=== PATIENT | female | born 1955 | race African-American/Black ===

== ENCOUNTER 2021-01-29 22:07 | Inpatient (IN) | payer MEDICARE, MEDICAID, SELFPAY ==
--- NOTE | ~2021-01-29 | XR_ITS ---
EXAMINATION: XR abdomen obstructive series EXAM DATE: 01/31/2021 12:44 INDICATION: Abdominal pain, ureterolithiasis s/p stent . TECHNIQUE: Frontal upright projection of the upper abdomen, frontal projection of the lower abdomen f or interpretation. Comparison is made to prior examination from 01/30/2021. FINDINGS: There is a left-sided double-J ureteral stent overlying expected position. There are 2 den sities projecting over the left kidney, probably nephrolithiasis. These have been indicated on the ex amination. There is a nonobstructive bowel gas pattern. Expected amount of colonic stool. No dilated small bowel. Advanced lumbar facet arthropathy. No evidence of free intraperitoneal gas on the uprigh t image. Lung bases are clear. IMPRESSION: 1. Left nephrolithiasis. 2. Stent in position. Reviewed, dictated and finalized at location A.
--- NOTE | ~2021-01-29 | XR_ITS ---
EXAMINATION: XR abdomen/kub 1V DATE: 01/30/2021 07:49 INDICATION: Kidney stone. TECHNIQUE: A supine view of the abdomen on 2 radiographs was obtained. COMPARISON: None. FINDINGS: There are no dilated loops of bowel. There is a 6 mm calcification in left abdomen. There i s a 5 mm calcification in left pelvis. IMPRESSION: 1. 6 mm calcification in left abdomen that may be a stone in the proximal left ureter. 2. 5 mm calcification in the left pelvis that may be a phlebolith or distal ureteral stone. Reviewed, dictated and finalized at location A. IMPRESSION: 1. 6 mm calcification in left abdomen that may be a stone in the proximal left ureter. 2. 5 mm calcification in the left pelvis that may be a phlebolith or distal ure teral stone.
--- NOTE | ~2021-01-29 | XR_ITS ---
EXAMINATION: XR abdomen/kub 1V DATE: 02/02/2021 14:22 INDICATION: Ureteral stone. TECHNIQUE: A supine view of the abdomen on 2 radiographs was obtained. COMPARISON: Abdomen radiographs 01/31/2021 FINDINGS: There are no dilated loops of bowel. The kidneys are obscured by bowel. There is a left int ernal ureteral stent in expected position. Calcifications in the pelvis are likely phleboliths. There is a 4 mm stone in left kidney. IMPRESSION: 1. 4 mm stone in left kidney. 2. Left internal ureteral stent in expected position. Reviewed, dictated and finalized at location A.
--- NOTE | ~2021-01-29 | US_ITS ---
EXAMINATION: US renal BI EXAM DATE: 02/01/2021 10:24 INDICATION: Pyelonephritis, stent, WBC elevated. TECHNIQUE: Multiple grayscale and Doppler images of the kidneys were obtained (by a technologist who performed the scan) and subsequently reviewed. There is no prior study for comparison. FINDINGS: Right kidney: There is normal contour and echogenicity. It measures 9.3 x 4.9 x 5.5 centimeters. Th ere are no focal renal lesions identified. There is no hydronephrosis. Left kidney: There is normal contour and echogenicity. It measures 9.8 x 6.0 x 5.7 centimeters. The re are no focal renal lesions identified. There is no hydronephrosis. Bladder unremarkable. IMPRESSION: Sonographically unremarkable kidneys. Reviewed, dictated and finalized at location A.
--- NOTE | ~2021-01-29 | XR_ITS ---
EXAMINATION: XR retrograde pyelo w/stent LT EXAM DATE: 01/30/2021 11:28 INDICATION: Left-sided retrograde pyelogram, stent placement. TECHNIQUE: Fluoroscopy used during XR retrograde pyelo w/stent LT performed by Dr. Floyd bhatt MD. Total fluoroscopic time of 0.25 minutes. A total of 7 images obtained for the exam. The DAP for this procedure was 237 radcm2. FINDINGS: The left ureter was cannulated, injected. There is mild left hydronephrosis. A double-J ur eteral stent was placed, lower loop projecting over the pubis. Correlate with procedure note. IMPRESSION: Fluoroscopy used during XR retrograde pyelo w/stent LT. Reviewed, dictated and finalized at location A.
[2021-01-29 22:18] VITALS: BP 159/75; PULSE 97; RESP 18; TEMP 36.6; O2SAT 96; BMI 36.3
--- NOTE | 2021-01-29 22:18 | ADMGEN ---
This patient, America Russo, was admitted to Medical Room 261-01. Patient/family oriented to hospital policies and general routines including ID bracelet, bed and alarms, visiting hours, pain management, procedures, bathroom and other care routines, personal items, smoking policy, room service/diet, and visiting hours. Information on how to activate the Rapid Response Team has been discussed. Patient/Family are encouraged to report perceived risks to care and to ask questions if they do not understand what they are told or what they should do.
[2021-01-29] MEDS: HYDROmorphone HCL INJ (*CRX) 1 MG/ML SYR 0.5 MG IV PUSH (23:09)
--- NOTE | 2021-01-29 23:36 | PM.IMHP ---
H&P: HPI History of Present Illness Date/Time: 01/29/21 23:36 this is a 65-year-old female patient who was seen by Dr. ortez at [facility] today. She took care over from another ED physician. The patient came to [facility] on 01/28/2021 she came to the emergency room with complaints of nausea vomiting and diarrhea. She had no prior history of any kidney stones. She has a history of atrial fibrillation and COPD. The patient was complaining of severe left-sided abdominal pain and left flank pain. The patient was found have UTI and was placed on Levaquin. She had a T-max of 100.4?. Patient had a CT of the abdomen which was read as a 8 mm left proximal ureteral obstructing calculus causing significant left-sided hydronephrosis and perinephric stranding suspicious for pyelonephritis. The patient initially was given morphine which did not control her discomfort. She was then given Dilaudid which she stated helped her discomfort. She was given IV fluids at [facility]. Her initial white count on 01/28/2021 was 12.9. The patient's urine was turbid with red blood cells and white blood cells 21-40. Her CT disc was sent with her to [facility]. The patient was a direct admit from [facility]. [facility] was called initially however there were no beds available. [facility] was also notified and also had no beds either. The patient was able to ambulate at [facility]. This was with assistance. Patient was nauseated there and was given Zofran. The patient is being admitted here to [facility] observation. Date of service is 01/29/2021 Chief Complaint: left flank pain Review of Systems Review of Systems: All systems reviewed & are unremarkable except as noted in HPI and below Constitutional: Constitutional: Reports as per HPI and Reports no additional constitutional complaints Eyes: Eyes: Reports as per HPI and Reports no additional eye complaints ENT: Reports system reviewed and no additional complaints, except as documented and Reports Normal hearing present Cardiovascular: Cardiovascular: Reports no additional cardiovascular complaints Respiratory: Respiratory: Reports no additional respiratory complaints and Reports no additional respiratory complaints Gastrointestinal: Gastrointestinal: Reports as per HPI and Reports no additional gastrointestinal complaints Musculoskeletal: Musculoskeletal: Reports no additional musculoskeletal complaints Integumentary/Breasts: Skin/Breast: Reports system reviewed and no additional complaints, except as docu and Reports as per HPI Neurologic: Reports system reviewed and no additional complaints, except as documented, Reports as per HPI and Reports Normal hearing present Psychiatric: Psychiatric: Reports no additional psychiatric complaints and Reports as per HPI Endocrine: Endocrine: Reports no additional endocrine complaints Hematologic/Lymphatic: Hematologic/Lymphatic: Reports no additional hematologic/lymphatic complaints Allergic/Immunologic: Allergic/Immunologic: Reports no additional allergic/immunologic complaints FOR[facility]LY [facility] Past Medical History Medical History (Updated 01/29/21 @ 23:48 by Madai Gonzalez NP) Anxiety Atrial fibrillation Congestive heart failure COPD (chronic obstructive pulmonary disease) Hyperlipidemia Hypertension Overactive bladder Surgical History Surgical History (Updated 01/29/21 @ 23:44 by Madai Gonzalez NP) H/O shoulder surgery left History of bilateral tubal ligation History of carpal tunnel release History of intravascular stent placement right leg Family History Family History (Updated 01/29/21 @ 23:45 by Madai Gonzalez NP) Father Diabetes mellitus Congestive cardiac failure Cerebrovascular accident Malignant neoplasm of prostate Mother Diabetes mellitus Congestive cardiac failure Ovarian cancer Sibling Drug addiction Social History Social History (Updated 01/29/21 @ 23:45 by Ivana
[2021-01-30] VITALS (19 sets, daily range): BP systolic 110–154; BP diastolic 58–70; PULSE 79–106; RESP 14–26; TEMP 36–37.7; O2SAT 83–100
[2021-01-30] MEDS: dilTIAZem HCL CD 180 MG CAP.ER.24H 360 MG PO ×2 (00:48→10:09)
[2021-01-30] MEDS: SODIUM CHLORIDE 0.9% IV 1,000 ML 100 ML IV CONT (00:49)
[2021-01-30] MEDS: levoFLOXacin 500 MG/D5W 100 ML 500 MG/100 ML BAG 100 MG IVPB (00:51)
[2021-01-30] MEDS: HYDROmorphone HCL INJ (*CRX) 1 MG/ML SYR IV PUSH ×2 (01:48→10:16)
[2021-01-30 02:01] LABS: Lactic Acid Reflex 0.9 mmol/L (0.7-2.1)
[2021-01-30] MEDS: ONDANSETRON INJ 4 MG/2 ML VIAL IV PUSH ×3 (02:36→12:26)
[2021-01-30 02:55] LABS: Add Urine Microscopic? YES; Appearance Urine Cloudy (Clear); Bacteria Urine Trace /hpf; Bilirubin Urine Negative (Negative); Blood Urine Negative (Negative); Color Urine Yellow (Yellow); Glucose Urine UA Negative (Negative); Ketones Urine 1+ mg/dL (Negative); Leukocyte Esterase Ur 2+ LEU/UL (NEGATIVE); Mucus Urine Rare /lpf; Nitrate Urine Negative (Negative); Protein Urine 1+ mg/dL (Negative); Specific Grav Ur 1.019 (1.001-1.035); Squamous Epithelial Cell Urine Many /hpf (Few); Urobilinogen Urine Negative mg/dL (<2.0)
[2021-01-30 05:42] LABS: Basophils Percent Auto 0.2 % (0.2-1.2); Eosinophils Percent Auto 0.2 % (0-4.4); Hematocrit 39.9 % (37.0-47.0); Hemoglobin 12.7 g/dL (12.0-15.0); Immature Granulocyte Absolute 0.11 K/mm3 (0.00-0.031); Immature Granulocyte Percent A 0.6 % (0-0.5); Lymphocytes Absolute Auto 2.07 K/mm3 (0.9-3.2); Lymphocytes Percent Auto 10.6 % (18.3-44.2); Mean Corpuscular HGB Conc 31.8 g/dl (32-36); Mean Corpuscular Hemoglobin 31.5 pg (26-34); Mean Platelet Volume 10.9 fl (7.4-10.4); Monocytes Absolute Auto 1.5 K/mm3 (0.1-0.6); Monocytes Percent Auto 7.6 % (2.6-8.5); Neutrophils Absolute Auto 15.9 K/mm3 (1.3-6.7); Neutrophils Percent Auto 80.8 % (45.5-73.1); Platelet Count Result 301 k/mm3 (150-375); Red Blood Count 4.03 M/mm3 (4.2-5.4); Red Cell Distribution Width 13.1 % (11.5-14.5); White Blood Count 19.6 K/mm3 (4.5-10.0)
[2021-01-30 05:50] LABS: Lactic Acid Reflex 1.1 mmol/L (0.7-2.1)
[2021-01-30 06:01] LABS: Alanine Aminotransferase 19 U/L (4-35); Albumin Level 3.5 g/dL (3.5-5.1); Alkaline Phosphatase 154 U/L (38-126); Anion Gap 6 mmol/L (8-16); Aspartate Amino Transferase 32 U/L (14-36); Bilirubin,Total 0.4 mg/dL (0.2-1.3); Blood Urea Nitrogen 14 mg/dL (7-17); Calcium 8.9 mg/dL (8.4-10.2); Carbon Dioxide 24 mmol/L (22-30); Chloride 111 mmol/L (98-107); Estimated CRCL calculation 38 ml/min; Estimated Glomerular Filt Rate 42; Glucose 86 mg/dL (65-105); Magnesium 1.9 mg/dL (1.6-2.3); Potassium 3.9 mmol/L (3.4-5.0); Sodium 141 mmol/L (137-145)
--- NOTE | 2021-01-30 08:56 | WPDURCON ---
Assessment and Plan Assessment and plan (1) Left ureteral stone: Code(s): N20.1 - Calculus of ureter Status: Acute Assessment and Plan: She will undergo left ureteral stent today. She understands risks of bleeding, infection, inability to place the stent. She also understands she will have definitive stone management and a separate procedure. She will likely undergo lithotripsy in the future. (2) Abnormal urinalysis: Code(s): R82.90 - Unspecified abnormal findings in urine Status: Acute Assessment and Plan: She does have an elevated white count. Her urinalysis is contaminated. She has no prominent symptoms of urinary tract infection. Urine culture is pending. Urology Consult Note HPI Date Seen: 01/30/21 Requesting Physician: Tiarra Simpson PA-C Primary Care Provider: Nelson Dempsey, Consult Narrative Narrative: America Russo is a 65 year old female transferred from an outside hospital. She had acute onset of left-sided flank pain 2 days ago. This prompted her visit to the emergency room. She was diagnosed with a proximal left ureteral stone measuring 8 mm. This is her 1st stone. She denied any spiking fevers. She denied any dysuria. She denied any chills. She notes some nausea without vomiting. She also had visible blood in the urine. Her urinalysis is contaminated with epithelial cells. Infection cannot be ruled out. A culture is pending. She does not have prominent UTI symptoms. She will undergo ureteral stent today with definitive stone management down the road. Review of Systems Review of Systems: All systems reviewed & are unremarkable except as noted in HPI and below PMFSH Past Medical History Medical History (Updated 01/30/21 @ 09:00 by Renzo Hicks MD) Anxiety Atrial fibrillation Congestive heart failure COPD (chronic obstructive pulmonary disease) Hyperlipidemia Hypertension Overactive bladder Surgical History Surgical History (Updated 01/29/21 @ 23:44 by Madai Gonzalez NP) H/O shoulder surgery left History of bilateral tubal ligation History of carpal tunnel release History of intravascular stent placement right leg Family History Family History (Updated 01/29/21 @ 23:45 by Madai Gonzalez NP) Father Diabetes mellitus Congestive cardiac failure Cerebrovascular accident Malignant neoplasm of prostate Mother Diabetes mellitus Congestive cardiac failure Ovarian cancer Sibling Drug addiction Social History Social History (Updated 01/29/21 @ 23:45 by Madai Gonzalez NP) Social History: the patient is and has 2 children. She stated that her 2 children of the durable power attorney at law for healthcare. The patient desires to be a full code. She is a lifelong nonsmoker nondrinker in and does not do any drugs. 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 She occasionally has a Glass of wine. Smoking status: Never smoker Alcohol intake: current Drinks per week: 1 Substance use: never Spiritual care concerns: No Meds Home Medications and Allergies Home Medications Medication Instructions Recorded Confirmed Type albuterol sulfate 2 puff INHALATION PRN PRN 01/29/21 01/29/21 History aspirin [Adult Low Dose Aspirin] 81 mg PO DAILY 01/29/21 01/29/21 History atorvastatin 40 mg PO DAILY 01/29/21 01/29/21 History diltiazem HCl [Cardizem CD] 360 mg PO DAILY 01/29/21 01/29/21 History furosemide 40 mg PO DAILY 01/29/21 01/29/21 History oxybutynin chloride 10 mg PO DAILY 01/29/21 01/29/21 History Allergies Allergy/AdvReac Type Severity Reaction Status Date / Time Penicillins Allergy Severe Difficulty Verified 01/29/21 22:28 Breathing Vital Signs Vital Signs - 24 hr 01/29/21 22:18 01/30/21 01:02 01/30/21 04:00 Temperature 97.8 F 97.4 F L 97.4 F L Pulse Rate 97 106 H 96 Respiratory Rate 18 16 16 Blood Pressure 159/75 H 144/65 H 143/63 H Pulse Oximetry 96 100 92
--- NOTE | 2021-01-30 10:31 | WPDHPUPDATE1 ---
History and Physical Update Update Date/Time: 01/30/21 10:31 History and Physical has been reviewed, including an updated exam of the patient. There are NO changes in the patient's condition. Risks, benefits, and alternatives have been discussed and questions answered. Patient agrees to proceed with procedure. Proceed with cysto, left retrograde, left stent placement
--- NOTE | 2021-01-30 10:32 | WPDHPUPDATE1 ---
History and Physical Update Update Date/Time: 01/30/21 10:32 History and Physical has been reviewed, including an updated exam of the patient. There are NO changes in the patient's condition. Risks, benefits, and alternatives have been discussed and questions answered. Patient agrees to proceed with procedure. Proceed with cysto left retrograde left stent placement
--- NOTE | 2021-01-30 10:55 | WPDANESEPPF ---
Anes - Initial Pre Proc Eval Procedure: Operation Date: 01/30/21 13:45 Proposed Procedures p Cystoscopy,Left Stent Placement - Floyd Coffey MD Date/Time: 01/30/21 10:55 Surgeon: Tiarra Simpson PA-C Pre Op Diagnosis: kidney stones with UTI Patient Data Age: 65 Gender: F Height: 5 ft 4 in Weight: 96.2 kg Last Vital Signs Temp 36.3 C L 01/30/21 04:00 Pulse 96 01/30/21 04:00 Resp 16 01/30/21 04:00 BP 143/63 H 01/30/21 04:00 Pulse Ox 92 01/30/21 04:00 Allergies Allergy/AdvReac Type Severity Reaction Status Date / Time Penicillins Allergy Severe Difficulty Verified 01/29/21 22:28 Breathing Home Medications Medication Instructions Recorded Confirmed Type albuterol sulfate 2 puff INHALATION PRN PRN 01/29/21 01/29/21 History aspirin [Adult Low Dose Aspirin] 81 mg PO DAILY 01/29/21 01/29/21 History atorvastatin 40 mg PO DAILY 01/29/21 01/29/21 History diltiazem HCl [Cardizem CD] 360 mg PO DAILY 01/29/21 01/29/21 History furosemide 40 mg PO DAILY 01/29/21 01/29/21 History oxybutynin chloride 10 mg PO DAILY 01/29/21 01/29/21 History Laboratory Tests 01/30/21 01/30/21 01/30/21 01:20 01:20 02:30 WBC RBC Hgb Hct MCV MCH MCHC RDW Plt Count MPV Immature Gran % (Auto) Neut % (Auto) Lymph % (Auto) Barren % (Auto) Eos % (Auto) Baso % (Auto) Lymph # (Auto) Barren # (Auto) Eos # (Auto) Baso # (Auto) Abs Immat Gran (auto) Absolute Neuts (auto) Absolute Nucleated RBC Nucleated RBC % Sodium Potassium Chloride Carbon Dioxide Anion Gap BUN Creatinine Estim Creat Clear Calc Estimated GFR Glucose Lactic Acid 0.9 mmol/L mmol/L (0.7-2.1) Calcium Magnesium 2.0 mg/dL mg/dL (1.6-2.3) Total Bilirubin AST ALT Alkaline Phosphatase Total Protein Albumin Urine Color Yellow (Yellow) Urine Appearance Cloudy H (Clear) Urine pH 5.0 (5.0-9.0) Ur Specific [place] 1.019 (1.001-1.035) Urine Protein 1+ mg/dL H mg/dL (Negative) Urine Glucose (UA) Negative mg/dL mg/dL (Negative) Urine Ketones 1+ mg/dL H mg/dL (Negative) Ur Blood (Man) Negative (Negative) Urine Nitrate Negative (Negative) Urine Bilirubin Negative (Negative) Urine Urobilinogen Negative mg/dL mg/dL (<2.0) Ur Leukocyte Esterase 2+ SWEETIE/UL H SWEETIE/UL (NEGATIVE) Urine RBC 3-5 /hpf H /hpf (0-2) Urine WBC 7-9 /hpf H /hpf (0-3) Ur Squamous Epith Cells Many /hpf H /hpf (Few) Urine Bacteria Trace /hpf /hpf Urine Mucus Rare /lpf /lpf 01/30/21 01/30/21 01/30/21 05:09 05:09 05:09 WBC 19.6 K/mm3 H K/mm3 (4.5-10.0) RBC 4.03 M/mm3 L M/mm3 (4.2-5.4) Hgb 12.7 g/dL g/dL (12.0-15.0) Hct 39.9 % % (37.0-47.0) MCV 99.0 fl fl (80-100) MCH 31.5 pg pg (26-34) MCHC 31.8 g/dl L g/dl (32-36) RDW 13.1 % % (11.5-14.5) Plt Count 301 k/mm3 k/mm3 (150-375) MPV 10.9 fl H fl (7.4-10.4) Immature Gran % (Auto) 0.6 % H % (0-0.5) Neut % (Auto) 80.8 % H % (45.5-73.1) Lymph % (Auto) 10.6 % L % (18.3-44.2) Barren % (Auto) 7.6 % % (2.6-8.5) Eos % (Auto) 0.2 % % (0-4.4) Baso % (Auto) 0.2 % % (0.2-1.2) Lymph # (Auto) 2.07 K/mm3 K/mm3 (0.9-3.2) Barren # (Auto) 1
--- NOTE | 2021-01-30 10:58 | PC.NURSE ---
To OR via stretcher with OR staff.
[2021-01-30] MEDS: LACTATED RINGERS 1,000 ML 30 ML IV CONT (11:00)
[2021-01-30] MEDS: LIDOCAINE HCL 2% GEL UROJET 10 ML PKG MUCOUS MEM (11:22)
--- NOTE | 2021-01-30 11:23 | P.OP_ITS ---
Procedure Note - Detailed Date of procedure: 01/30/21 Pre-op diagnosis: kidney stones with UTI Post-op diagnosis: same Procedure performed: Cystoscopy, left retrograde pyelogram, left ureteral stent placement 4.8 Romanian contour Description of procedure: Patient is taken the operative suite and correctly identified. Once anesthesia was obtained she was prepped and draped usual sterile fashion in dorsal lithotomy position. Twenty-two Romanian scope was inserted in the bladder. There is no tumors noted. The left ureteral orifice was cannulated with a [place]. Pyelogram was performed. We were able to get contrast past the stone. The guidewire was then inserted. 4.8 Romanian contour stent was then placed with the proximal end coiled in the renal pelvis and the distal in the bladder. Urine was obtained for culture. 2% viscous lidocaine was inserted into urethra patient is an recovery stable condition. Once patient is stable she can be discharged home from Urology standpoint. Will plan on seeing her in the office with a KUB this coming week and plan on definitive treatment at that time. Anesthesia: GLMA Surgeon: Floyd Coffey MD Drains: Yes Packing: No Pathology: none sent Complications: No immediate complications Condition: stable Disposition: PACU
[2021-01-30] MEDS: fentaNYL CITRATE INJ (*CRX) 100 MCG/2 ML VIAL 25 MCG IV PUSH (12:24)
--- NOTE | 2021-01-30 13:00 | PC.NURSE ---
Patient returned from OR via stretcher with OR staff. Settled in room. Patient sleeping and states she is comfortable and just wants to sleep when I arouse her. No distress noted. Telemetry placed back on patient and IVFs resumed.
--- NOTE | 2021-01-30 14:43 | PM.IMPN ---
Progress Note: A&P Assessment and Plan (1) Left ureteral stone: Code(s): N20.1 - Calculus of ureter Status: Acute Assessment and Plan: She presented to OSH and reported nausea, vomiting, and diarrhea with severe left-sided abdominal and flank pain. CT abd/pelvis demonstrated 8mm left proximal ureteral obstructing calculus with left-sided hydroureteronephrosis. She was transferred to [facility] for urology consultation and she is s/p cystoscopy with left retrograde pyelogram and left ureteral stent placement by Dr. Coffey today She notes hematuria following stent placement with mild dysuria but is otherwise doing well She will need definitive stone management outpatient per urology Continue analgesics and antiemetics as needed Continue gentle fluids until tolerating oral intake well (2) UTI (urinary tract infection): Code(s): N39.0 - Urinary tract infection, site not specified Status: Acute Assessment and Plan: Urinalysis grossly abnormal at outside facility but did appear contaminated with many squamous cells. CT abd/pelvis demonstrated perinephric stranding suspicious for pyelonephritis. She did complain of flank pain but no dysuria, urgency, or frequency prior to presentation. Temperature was elevated with Tmax 100.4F. WBC elevated at 12,900 and increased to 19,600 today. Continue empiric levaquin (initiated 01/28/21) Blood and urine cultures (clean catch and cystoscopy) pending Appreciate urology input (3) REGINALD (acute kidney injury): Code(s): N17.9 - Acute kidney failure, unspecified Status: Acute Assessment and Plan: Cr 1.21 on presentation to [place] and increased to 1.5 on labs today. May be secondary to vomiting, ureterolithiasis, vs infection. Continue IV normal saline Hold furosemide Follow trend (4) Hydronephrosis: Code(s): N13.30 - Unspecified hydronephrosis Status: Acute Assessment and Plan: As above. (5) COPD (chronic obstructive pulmonary disease): Code(s): J44.9 - Chronic obstructive pulmonary disease, unspecified Status: Chronic Assessment and Plan: Not in acute exacerbation. Continue albuterol PRN (6) Congestive heart failure: Code(s): I50.9 - Heart failure, unspecified Status: Chronic Assessment and Plan: Appears clinically compensated. Cr is elevated, likely pre-renal due to vomiting, so she is on judicious fluids. She follows with Dr. Cortez at [place]. Monitor volume status closely (7) Atrial fibrillation: Code(s): I48.91 - Unspecified atrial fibrillation Status: Chronic Assessment and Plan: She is currently in sinus rhythm. She is not on anticoagulation. Continue diltiazem (8) Hypertension: Code(s): I10 - Essential (primary) hypertension Status: Chronic Assessment and Plan: Blood pressures are reasonable with a few elevated readings, likely due to pain. Continue diltiazem Furosemide held due to mild REGINALD and acute illness, resume when clinically appropriate (9) Anxiety: Code(s): F41.9 - Anxiety disorder, unspecified Status: Chronic Assessment and Plan: Continue ativan PRN. (10) Hyperlipidemia: Code(s): E78.5 - Hyperlipidemia, unspecified Status: Chronic Assessment and Plan: ALP mildly elevated. Atorvastatin held initially since she was NPO but will resume (11) Overactive bladder: Code(s): N32.81 - Overactive bladder Status: Chronic Assessment and Plan: Oxybutynin held. Will resume when fine from a urology standpoint. Subjective Date/time seen: 01/30/21 14:43 Ms. Russo is a 65 y.o. female with PMH significant for COPD, hyperlipidemia, hypertension, overactive bladder, anxiety, and CHF who is seen in follow-up for ureterolithiasis and suspected urinary tract infection. She was seen followin
--- NOTE | 2021-01-30 17:30 | PC.NURSE ---
IV site in left antecubital leaking at site. IV discontinued. Attempted to restart IV site x 2 without success. Charge nurse Maddison Pardo RN also tried to restart x 2 without success. Called nursing solar panel installation supervisor Mariposa Molina RN and she came to room and attempted to restart IV x 3 using ultrasound machine. Unable to obtain IV access. Called Dr. Salinas and explained situation to her. Orders received to d/c IVF and change Levaquin IV to po as possible discharge tomorrow pending results of urine culture. Also spoke to Dr. Salinas about pain medication. Order received to d/c IV Dilaudid and start Percocet po prn for pain management.
[2021-01-30] MEDS: oxyCODONE/ACETAMINOPHEN (*CRX) 5-325 MG TABLET 1 TABLET PO ×2 (18:09→23:45)
[2021-01-31] VITALS (7 sets, daily range): BP systolic 131–163; BP diastolic 60–84; PULSE 74–83; RESP 16–20; TEMP 35.9–36.9; O2SAT 92–100
[2021-01-31 05:37] LABS: Basophils Percent Auto 0.1 % (0.2-1.2); Hematocrit 37.3 % (37.0-47.0); Hemoglobin 12.2 g/dL (12.0-15.0); Immature Granulocyte Absolute 0.13 K/mm3 (0.00-0.031); Immature Granulocyte Percent A 0.7 % (0-0.5); Lymphocytes Absolute Auto 0.87 K/mm3 (0.9-3.2); Mean Corpuscular HGB Conc 32.7 g/dl (32-36); Mean Corpuscular Hemoglobin 31.7 pg (26-34); Mean Corpuscular Volume 96.9 fl (80-100); Mean Platelet Volume 10.6 fl (7.4-10.4); Monocytes Absolute Auto 0.9 K/mm3 (0.1-0.6); Monocytes Percent Auto 4.9 % (2.6-8.5); Neutrophils Absolute Auto 15.6 K/mm3 (1.3-6.7); Neutrophils Percent Auto 89.3 % (45.5-73.1); Platelet Count Result 274 k/mm3 (150-375); Red Blood Count 3.85 M/mm3 (4.2-5.4); Red Cell Distribution Width 12.9 % (11.5-14.5); White Blood Count 17.5 K/mm3 (4.5-10.0)
[2021-01-31] MEDS: oxyCODONE/ACETAMINOPHEN (*CRX) 5-325 MG TABLET 1 TABLET PO ×3 (05:58→20:45)
[2021-01-31 06:01] LABS: Anion Gap 2 mmol/L (8-16); Blood Urea Nitrogen 13 mg/dL (7-17); Calcium 9.4 mg/dL (8.4-10.2); Carbon Dioxide 28 mmol/L (22-30); Chloride 109 mmol/L (98-107); Estimated CRCL calculation 57 ml/min; Estimated Glomerular Filt Rate > 60; Glucose 144 mg/dL (65-105); Magnesium 2.2 mg/dL (1.6-2.3); Potassium 4.6 mmol/L (3.4-5.0); Sodium 139 mmol/L (137-145)
--- NOTE | 2021-01-31 07:30 | P.PNAN_ITS ---
Anes - Prog Note Post-Op Date/Time: 01/31/21 07:30 Cardiovascular status: normal Respiratory status: normal Airway patency: baseline Mental status: baseline Post-Op hydration status: normal Vital Signs: Last Vital Signs Temp 36.3 C L 01/31/21 06:57 Pulse 74 01/31/21 06:57 Resp 16 01/31/21 06:57 BP 145/84 H 01/31/21 06:57 Pulse Ox 100 01/31/21 06:57 Pain Score (VAS): 4 I/O: Intake & Output 01/30/21 01/30/21 01/31/21 15:59 23:59 07:59 Intake Total 1000 240 Output Total 200 1750 450 Balance 800 1510 -450 Laboratory Tests 01/31/21 05:25 01/31/21 05:25 01/31/21 01/31/21 05:25 05:25 WBC 17.5 H RBC 3.85 L Hgb 12.2 Hct 37.3 MCV 96.9 MCH 31.7 MCHC 32.7 RDW 12.9 Plt Count 274 MPV 10.6 H Immature Gran % (Auto) 0.7 H Neut % (Auto) 89.3 H Lymph % (Auto) 5.0 L [place] % (Auto) 4.9 Eos % (Auto) 0.0 Baso % (Auto) 0.1 L Lymph # (Auto) 0.87 L [place] # (Auto) 0.9 H Eos # (Auto) 0.0 Baso # (Auto) 0.0 Abs Immat Gran (auto) 0.13 H Absolute Neuts (auto) 15.6 H Absolute Nucleated RBC 0.0 Nucleated RBC % 0.0 Sodium 139 Potassium 4.6 Chloride 109 H Carbon Dioxide 28 Anion Gap 2 L BUN 13 Creatinine 1.00 Estim Creat Clear Calc 57 Estimated GFR > 60 Glucose 144 H Calcium 9.4 Magnesium 2.2 Microbiology 01/30/21 02:30 Urine Clean Catch Urine Culture - Final Post-procedural complaints: none Patient Feedback: Patient satisfied with anesthetic care.
[2021-01-31] MEDS: ASPIRIN 81 MG CHEWABLE TABLET PO (09:00)
[2021-01-31] MEDS: ATORVASTATIN 40 MG TABLET PO (09:00)
[2021-01-31] MEDS: dilTIAZem HCL CD 180 MG CAP.ER.24H 360 MG PO (09:00)
[2021-01-31] MEDS: ONDANSETRON HCL ODT 4 MG TABLET PO (10:25)
--- NOTE | 2021-01-31 12:06 | PM.IMPN ---
Progress Note: A&P Assessment and Plan (1) Left ureteral stone: Code(s): N20.1 - Calculus of ureter Status: Acute Assessment and Plan: She presented to OSH and reported nausea, vomiting, and diarrhea with severe left-sided abdominal and flank pain. CT abd/pelvis demonstrated 8mm left proximal ureteral obstructing calculus with left-sided hydroureteronephrosis. She is still having renal colic. Repeat abdominal plain films show stent in expected position. She is still having some hematuria but this has improved. She was transferred to [facility] for urology consultation and she is s/p cystoscopy with left retrograde pyelogram and left ureteral stent placement by Dr. Coffey 01/30 She will need definitive stone management outpatient per urology Continue analgesics and antiemetics as needed (2) UTI (urinary tract infection): Code(s): N39.0 - Urinary tract infection, site not specified Status: Acute Assessment and Plan: Urinalysis grossly abnormal at outside facility but did appear contaminated with many squamous cells and culture demonstrated multiple organisms suspicious for external shelby, therefore no further culture obtained. CT abd/pelvis demonstrated perinephric stranding suspicious for pyelonephritis. She did complain of flank pain but no dysuria, urgency, or frequency prior to presentation. Temperature was elevated with Tmax 100.4F. WBC increased to 19.600 01/30 and is improving. Urine culture (clean catch) here demonstrates no growth but this was performed after she received antibiotics. Continue empiric levaquin (initiated 01/28/21) Blood and urine cultures (cystoscopy) pending, await results Appreciate urology input (3) REGINALD (acute kidney injury): Code(s): N17.9 - Acute kidney failure, unspecified Status: Resolved Assessment and Plan: Resolved. Cr 1.21 on presentation to [place] and increased to 1.5 on labs 01/30. May be secondary to vomiting, ureterolithiasis, vs infection. Cr has normalized to 1.0. Stop IV fluids since she is tolerating oral fluid intake Follow trend (4) Hydronephrosis: Code(s): N13.30 - Unspecified hydronephrosis Status: Acute Assessment and Plan: As above. (5) COPD (chronic obstructive pulmonary disease): Code(s): J44.9 - Chronic obstructive pulmonary disease, unspecified Status: Chronic Assessment and Plan: Not in acute exacerbation. Continue albuterol PRN (6) Congestive heart failure: Code(s): I50.9 - Heart failure, unspecified Status: Chronic Assessment and Plan: Appears clinically compensated. She follows with Dr. Cortez at [place]. Monitor volume status closely Resume lasix (7) Atrial fibrillation: Code(s): I48.91 - Unspecified atrial fibrillation Status: Chronic Assessment and Plan: She is currently in sinus rhythm. She is not on anticoagulation. Continue diltiazem (8) Hypertension: Code(s): I10 - Essential (primary) hypertension Status: Chronic Assessment and Plan: Blood pressures are reasonable. She has had a few elevated readings, likely due to pain. Continue diltiazem and resume furosemide (9) Hyperlipidemia: Code(s): E78.5 - Hyperlipidemia, unspecified Status: Chronic Assessment and Plan: ALP mildly elevated. Continue atorvastatin (10) Overactive bladder: Code(s): N32.81 - Overactive bladder Status: Chronic Assessment and Plan: Resume oxybutynin Subjective Date/time seen: 01/31/21 12:06 Ms. Russo is a 65 y.o. female with PMH significant for COPD, hyperlipidemia, hypertension, overactive bladder, anxiety, and CHF who is seen in follow-up for ureterolithiasis and suspected urinary tract infection. She is doing okay today. She still has abdominal pain in the left abdomen/left flank which is intermittent and crampy in
[2021-01-31] MEDS: FUROSEMIDE 40 MG TABLET PO (13:18)
--- NOTE | 2021-01-31 15:53 | WPDUROPN2 ---
Progress Note: A&P Additional Plan She is doing well. She has some residual left abdominal pain. Her WBC remains increased today. I agree with continuing the antibiotic therapy until culture results are finalized. As per Dr. Coffey, definitive management will be planned as an outpatient. We also discussed stone prevention and the role of 24 hour urine assessment to help with guiding stone prevention efforts. Subjective Subjective Date/Time Seen: 01/31/21 15:53 She feels some left abdominal pain. No fevers or chills. Exam Const: General: cooperative, healthy appearing and comfortable Psych: Mental Status: mental status grossly normal Speech and movement: Normal speech and movement present Objective Data Vital Signs Vital Signs: Vital Signs - 24 hr 01/30/21 20:00 01/30/21 20:17 01/30/21 20:30 Temperature Pulse Rate 79 Respiratory Rate 16 Blood Pressure Pulse Oximetry 98 83 L 91 01/30/21 21:33 01/30/21 22:41 01/31/21 02:21 Temperature 36.0 C L 36.1 C L Pulse Rate 83 81 Respiratory Rate 18 16 Blood Pressure 131/66 151/68 H Pulse Oximetry 95 98 96 01/31/21 06:57 01/31/21 08:27 01/31/21 10:00 Temperature 36.3 C L 36.0 C L Pulse Rate 74 83 Respiratory Rate 16 18 Blood Pressure 145/84 H 162/78 H Pulse Oximetry 100 92 94 Intake/Output Intake/Output: Intake & Output 01/28/21 01/29/21 01/30/21 01/31/21 23:59 23:59 23:59 23:59 Intake Total 1340 0 Output Total 2100 450 Balance -760 -450 Meds/Results Medications: Active Medications Generic Name Dose Route Start Last Admin Trade Name Freq PRN Reason Stop Dose Admin Albuterol 2 puff 01/29/21 23:35 Albuterol Sulfate (*Sp) Aerosol 1 Puff INHALATION PRN PRN Shortness Of Breath Aspirin 81 mg 01/31/21 09:00 01/31/21 09:00 Aspirin 81 Mg Chewable Tablet PO 81 mg DAILY LOBO Administration Atorvastatin Calcium 40 mg 01/31/21 09:00 01/31/21 09:00 Atorvastatin 40 Mg Tablet PO 40 mg DAILY LOBO Administration Diltiazem HCl 360 mg 01/29/21 23:35 01/31/21 09:00 Diltiazem Hcl Cd 180 Mg Cap.Er.24h PO 02/28/21 23:36 360 mg DAILY LOBO Administration Docusate Sodium 100 mg 01/31/21 21:00 Docusate Sodium 100 Mg Capsule PO Q12HR [facility] Furosemide 40 mg 01/31/21 11:45 01/31/21 13:18 Furosemide 40 Mg Tablet PO 40 mg DAILY LOBO Administration Hydralazine HCl 10 mg 01/29/21 23:51 Hydralazine Hcl 20 Mg/Ml Vial IV PUSH Q8H PRN Blood Pressure - High Levofloxacin 500 mg 01/31/21 00:00 01/30/21 23:45 Levofloxacin Tab 500 Mg Tablet PO 500 mg Q24H LOBO Administration Naloxone HCl 0.1 mg 01/29/21 23:27 Naloxone Hcl 0.4 Mg/Ml Vial IV PUSH Q2M PRN Opiate Reversal Ondansetron HCl 4 mg 01/31/21 09:35 01/31/21 10:25 Ondansetron Hcl Odt 4 Mg Tablet PO 4 mg Q6H PRN Administration Nausea And Vomiting Oxybutynin Chloride 10 mg 02/01/21 09:00 Oxybutynin Chloride Xl 5 Mg Tab.Er.24 PO DAILY [facility] Oxycodone HCl 5 mg 01/30/21 17:58 Oxycodone Hcl (*Crx) 5 Mg Tab Ir PO Q6H PRN Pain Rated 7-10 Oxycodone/Acetaminophen 1 tablet 01/30/21 17:48 01/31/21 05:58 Oxycodone/Acetaminophen (*Crx) 5-325 Mg Tablet PO 1 tablet Q6H PRN Administration Pain Rated 4-6 Oxycodone/Acetaminophen 1 tablet 01/30/21 17:48 Oxycodone/Acetaminophen (*Crx) 5-325 Mg Tablet PO Q6H PRN Pain Rated 7-10 Radiology Results: ITS Impressions Retrograde Pyelogram 01/30/21 11:31 IMPRESSION: Fluoroscopy used during XR retrograde pyelo w/stent LT. Abdomen X-Ray 01/31/21 13:07 IMPRESSION: 1. Left nephrolithiasis. 2. Stent in position. Labs Labs: Laboratory Results - last 24 hr 01/31/21 01/31/21 05:25 05:25 WBC 17.5 H RBC 3.85 L Hgb 12.2 Hct 37.3 MCV 96.9 MCH 31.7 MCHC 32.7 RDW 12.9 Plt Count 274 MPV 10.6 H Immature Gran % (Auto) 0.7 H Neut % (A
--- NOTE | 2021-01-31 18:59 | PC.NURSE ---
pt moved to room 254 so she can have access to a shower
[2021-01-31] MEDS: oxyCODONE HCL (*CRX) 5 MG TAB IR PO (20:45)
[2021-01-31] MEDS: DOCUSATE SODIUM 100 MG CAPSULE PO (20:46)
[2021-02-01 01:40] VITALS: BP 152/69; PULSE 72; RESP 16; TEMP 36.1; O2SAT 97
[2021-02-01] MEDS: oxyCODONE HCL (*CRX) 5 MG TAB IR PO ×3 (05:27→17:31)
[2021-02-01] MEDS: oxyCODONE/ACETAMINOPHEN (*CRX) 5-325 MG TABLET 1 TABLET PO ×3 (05:27→17:32)
[2021-02-01 05:30] LABS: Basophils Percent Auto 0.2 % (0.2-1.2); Eosinophils Absolute Auto 0.1 K/mm3 (0-0.3); Eosinophils Percent Auto 0.3 % (0-4.4); Hematocrit 38.9 % (37.0-47.0); Hemoglobin 12.5 g/dL (12.0-15.0); Immature Granulocyte Absolute 0.07 K/mm3 (0.00-0.031); Immature Granulocyte Percent A 0.4 % (0-0.5); Lymphocytes Absolute Auto 2.27 K/mm3 (0.9-3.2); Lymphocytes Percent Auto 12.6 % (18.3-44.2); Mean Corpuscular HGB Conc 32.1 g/dl (32-36); Mean Corpuscular Hemoglobin 30.8 pg (26-34); Mean Corpuscular Volume 95.8 fl (80-100); Mean Platelet Volume 11.2 fl (7.4-10.4); Monocytes Absolute Auto 1.3 K/mm3 (0.1-0.6); Neutrophils Absolute Auto 14.4 K/mm3 (1.3-6.7); Neutrophils Percent Auto 79.5 % (45.5-73.1); Platelet Count Result 315 k/mm3 (150-375); Red Blood Count 4.06 M/mm3 (4.2-5.4); Red Cell Distribution Width 12.9 % (11.5-14.5); White Blood Count 18.1 K/mm3 (4.5-10.0)
[2021-02-01 05:40] LABS: Anion Gap 5 mmol/L (8-16); Blood Urea Nitrogen 12 mg/dL (7-17); Calcium 9.2 mg/dL (8.4-10.2); Carbon Dioxide 27 mmol/L (22-30); Chloride 106 mmol/L (98-107); Estimated CRCL calculation 70 ml/min; Estimated Glomerular Filt Rate > 60; Glucose 122 mg/dL (65-105); Potassium 3.8 mmol/L (3.4-5.0); Sodium 138 mmol/L (137-145)
[2021-02-01 05:57] VITALS: BP 145/68; PULSE 82; RESP 16; TEMP 36.2; O2SAT 98
[2021-02-01] MEDS: dilTIAZem HCL CD 180 MG CAP.ER.24H 360 MG PO (09:35)
[2021-02-01] MEDS: ASPIRIN 81 MG CHEWABLE TABLET PO (09:40)
[2021-02-01] MEDS: DOCUSATE SODIUM 100 MG CAPSULE PO ×2 (09:40→20:04)
[2021-02-01] MEDS: FUROSEMIDE 40 MG TABLET PO (09:40)
[2021-02-01] MEDS: ATORVASTATIN 40 MG TABLET PO (09:40)
[2021-02-01 10:00] VITALS: BP 157/70; PULSE 78; RESP 18; TEMP 36.1; O2SAT 96
[2021-02-01] MEDS: ONDANSETRON HCL ODT 4 MG TABLET PO ×2 (10:18→17:31)
--- NOTE | 2021-02-01 10:45 | PM.IMPN ---
Progress Note: A&P Assessment and Plan (1) Left ureteral stone: Code(s): N20.1 - Calculus of ureter Status: Acute Assessment and Plan: She presented to OSH and reported nausea, vomiting, and diarrhea with severe left-sided abdominal and flank pain. CT abd/pelvis demonstrated 8mm left proximal ureteral obstructing calculus with left-sided hydroureteronephrosis. She is still having renal colic and nausea. Repeat abdominal plain films show stent in expected position. Hematuria following stent placement continues to improve. She was transferred to [facility] for urology consultation and she is s/p cystoscopy with left retrograde pyelogram and left ureteral stent placement by Dr. Coffey 01/30 She will need definitive stone management. I discussed her care with Dr. Alvarez with urology today. Given persistent renal colic and nausea, she may require definitive stone treatment inpatient since symptoms are persistent. Continue analgesics and antiemetics as needed (2) UTI (urinary tract infection): Code(s): N39.0 - Urinary tract infection, site not specified Status: Acute Assessment and Plan: Urinalysis grossly abnormal at outside facility but did appear contaminated with many squamous cells and culture demonstrated multiple organisms suspicious for external shelby, therefore no further culture obtained. CT abd/pelvis demonstrated perinephric stranding suspicious for pyelonephritis. She did complain of flank pain but no dysuria, urgency, or frequency prior to presentation. Temperature was elevated with Tmax 100.4 at outside facility. She has been afebrile here. Both urine cultures (clean catch and cysto) are negative from this facility but these were obtained after receiving antibiotics. WBC increased to 18,100. Continue empiric levaquin (initiated 01/28/21), increase to 750mg QD and will switch back to IV therapy. She was on oral therapy 01/31 due to inability to obtain IV access and IV accessed was obtained today. Preliminary blood cultures demonstrate NGTD with final cultures pending Appreciate urology input. Discussed with urology today and will continue IV antibiotics given elevated WBC. (3) REGINALD (acute kidney injury): Code(s): N17.9 - Acute kidney failure, unspecified Status: Resolved Assessment and Plan: Resolved. Cr 1.21 on presentation to [place] and increased to 1.5 on labs 01/30. This may have been secondary to vomiting, ureterolithiasis, vs infection. Cr has normalized to 1.0. (4) Hydronephrosis: Code(s): N13.30 - Unspecified hydronephrosis Status: Acute Assessment and Plan: As above. (5) COPD (chronic obstructive pulmonary disease): Code(s): J44.9 - Chronic obstructive pulmonary disease, unspecified Status: Chronic Assessment and Plan: Not in acute exacerbation. Continue albuterol PRN (6) Congestive heart failure: Code(s): I50.9 - Heart failure, unspecified Status: Chronic Assessment and Plan: Appears clinically compensated. She follows with Dr. Cortez at [place]. Monitor volume status closely Continue lasix (7) Atrial fibrillation: Code(s): I48.91 - Unspecified atrial fibrillation Status: Chronic Assessment and Plan: She is currently in sinus rhythm. She is not on anticoagulation. Continue diltiazem (8) Hypertension: Code(s): I10 - Essential (primary) hypertension Status: Chronic Assessment and Plan: Blood pressures are a bit elevated above target. This is likely secondary to pain. Most recent 157/70. Continue diltiazem and resume furosemide Try to achieve better pain control. If BP is still elevated above target when pain resolves, she may require additional antihypertensive. She was previously on losartan/HCTZ which was discontinued in the outpatient setting. (9) Hyperlipidemia: Code(s): E78.5 - Hyperlipidemia, unspecified
[2021-02-01 14:00] VITALS: BP 160/78; PULSE 67; RESP 16; TEMP 36.5; O2SAT 97
[2021-02-01] MEDS: SALINE LOCK FLUSH 10 ML IV PUSH ×3 (14:28→21:54)
[2021-02-01 17:58] VITALS: BP 149/60; PULSE 84; RESP 16; TEMP 36.5; O2SAT 96
[2021-02-01] MEDS: polyethylene glycoL 3350 17 GM POWD.PACK PO (18:56)
[2021-02-01] MEDS: ENOXAPARIN 40 MG/0.4 ML SYRINGE SUB-Q (20:04)
[2021-02-01 21:25] VITALS: BP 135/85; PULSE 80; RESP 16; TEMP 36.4; O2SAT 100
[2021-02-02 01:55] VITALS: BP 131/82; PULSE 74; RESP 16; TEMP 36.4; O2SAT 99
[2021-02-02] MEDS: oxyCODONE HCL (*CRX) 5 MG TAB IR PO ×3 (03:55→18:05)
[2021-02-02] MEDS: oxyCODONE/ACETAMINOPHEN (*CRX) 5-325 MG TABLET 1 TABLET PO ×3 (03:56→18:05)
[2021-02-02 05:18] VITALS: BP 146/63; PULSE 70; RESP 16; TEMP 36.6; O2SAT 94
[2021-02-02] MEDS: SALINE LOCK FLUSH 20 ML IV PUSH (06:23)
[2021-02-02] MEDS: SALINE LOCK FLUSH 10 ML IV PUSH ×3 (06:23→20:53)
[2021-02-02 06:36] LABS: Basophils Percent Auto 0.3 % (0.2-1.2); Eosinophils Absolute Auto 0.1 K/mm3 (0-0.3); Eosinophils Percent Auto 0.9 % (0-4.4); Hematocrit 36.2 % (37.0-47.0); Hemoglobin 11.6 g/dL (12.0-15.0); Immature Granulocyte Absolute 0.04 K/mm3 (0.00-0.031); Immature Granulocyte Percent A 0.4 % (0-0.5); Lymphocytes Absolute Auto 2.16 K/mm3 (0.9-3.2); Lymphocytes Percent Auto 21.8 % (18.3-44.2); Mean Corpuscular Volume 96.8 fl (80-100); Mean Platelet Volume 9.9 fl (7.4-10.4); Monocytes Percent Auto 9.7 % (2.6-8.5); Neutrophils Absolute Auto 6.6 K/mm3 (1.3-6.7); Neutrophils Percent Auto 66.9 % (45.5-73.1); Platelet Count Result 298 k/mm3 (150-375); Red Blood Count 3.74 M/mm3 (4.2-5.4); Red Cell Distribution Width 13.1 % (11.5-14.5); White Blood Count 9.9 K/mm3 (4.5-10.0)
[2021-02-02 06:48] LABS: Alanine Aminotransferase 23 U/L (4-35); Albumin Level 3.2 g/dL (3.5-5.1); Alkaline Phosphatase 120 U/L (38-126); Anion Gap 1 mmol/L (8-16); Aspartate Amino Transferase 28 U/L (14-36); Bilirubin,Total 0.2 mg/dL (0.2-1.3); Blood Urea Nitrogen 11 mg/dL (7-17); Carbon Dioxide 37 mmol/L (22-30); Chloride 102 mmol/L (98-107); Estimated CRCL calculation 52 ml/min; Estimated Glomerular Filt Rate > 60; Glucose 119 mg/dL (65-105); Magnesium 1.4 mg/dL (1.6-2.3); Potassium 3.6 mmol/L (3.4-5.0); Sodium 140 mmol/L (137-145)
[2021-02-02] MEDS: dilTIAZem HCL CD 180 MG CAP.ER.24H 360 MG PO (09:10)
[2021-02-02] MEDS: ATORVASTATIN 40 MG TABLET PO (09:10)
[2021-02-02] MEDS: ASPIRIN 81 MG CHEWABLE TABLET PO (09:11)
[2021-02-02] MEDS: polyethylene glycoL 3350 17 GM POWD.PACK PO (09:11)
[2021-02-02] MEDS: FUROSEMIDE 40 MG TABLET PO (09:11)
[2021-02-02] MEDS: DOCUSATE SODIUM 100 MG CAPSULE PO ×2 (09:11→20:53)
[2021-02-02 10:00] VITALS: BP 144/66; PULSE 78; RESP 16; TEMP 36.1; O2SAT 100
[2021-02-02 14:00] VITALS: BP 142/59; PULSE 84; RESP 16; TEMP 36.2; O2SAT 100
--- NOTE | 2021-02-02 15:51 | PM.IMPN ---
Progress Note: A&P Assessment and Plan (1) Left ureteral stone: Code(s): N20.1 - Calculus of ureter Status: Acute Assessment and Plan: She presented to OSH and reported nausea, vomiting, and diarrhea with severe left-sided abdominal and flank pain. CT abd/pelvis demonstrated 8mm left proximal ureteral obstructing calculus with left-sided hydroureteronephrosis. She is still having renal colic and nausea. Repeat abdominal plain films show stent in expected position. Hematuria following stent placement continues to improve. She was transferred to [facility] for urology consultation and she is s/p cystoscopy with left retrograde pyelogram and left ureteral stent placement by Dr. Coffey 01/30 She will need definitive stone management. Given persistent renal colic and nausea, she may require definitive stone treatment inpatient since symptoms are persistent. Left flank pain is persisting despite our interventions. most recent imaging shows the stent to be in place and patent, but a 4mm stone remains up in the left kidney. Imaging showing L nephrolithiasis, mild L hydronephrosis. Urologist may be planning procedure for tomorrow. She is NPO at midnight for Urology. No N/V today. Continue analgesics and antiemetics as needed (2) UTI (urinary tract infection): Code(s): N39.0 - Urinary tract infection, site not specified Status: Acute Assessment and Plan: Urinalysis grossly abnormal at outside facility but did appear contaminated with many squamous cells and culture demonstrated multiple organisms suspicious for external shelby, therefore no further culture obtained. CT abd/pelvis demonstrated perinephric stranding suspicious for pyelonephritis. She did complain of flank pain but no dysuria, urgency, or frequency prior to presentation. Temperature was elevated with Tmax 100.4 at outside facility. She has been afebrile here. Both urine cultures (clean catch and cysto) are negative from this facility but these were obtained after receiving antibiotics. WBC increased to 18,100. Continue empiric IV levaquin (initiated 01/28/21), increase to 750mg QD and will switch back to IV therapy. She was on oral therapy 01/31 due to inability to obtain IV access and IV accessed was obtained Preliminary blood cultures demonstrate NGTD with final cultures pending Appreciate urology input. 01/30, 02/01, 02/02 - received Levaquin doses. will continue IV dosing for a full course of 5 days, especially considering the continued Urology interventions and procedures that she is undergoing. (3) REGINALD (acute kidney injury): Code(s): N17.9 - Acute kidney failure, unspecified Status: Resolved Assessment and Plan: Resolved. Cr 1.21 on presentation to [place] and increased to 1.5 on labs 01/30. This may have been secondary to vomiting, ureterolithiasis, vs infection. Cr has normalized to 1.1 (4) Hydronephrosis: Code(s): N13.30 - Unspecified hydronephrosis Status: Acute Assessment and Plan: As above. (5) COPD (chronic obstructive pulmonary disease): Code(s): J44.9 - Chronic obstructive pulmonary disease, unspecified Status: Chronic Assessment and Plan: Not in acute exacerbation. Continue albuterol PRN Stable (6) Congestive heart failure: Code(s): I50.9 - Heart failure, unspecified Status: Chronic Assessment and Plan: Appears clinically compensated. She follows with Dr. Cortez at [place]. Monitor volume status closely Continue lasix may need fluids overnight while NPO for procedure (7) Atrial fibrillation: Code(s): I48.91 - Unspecified atrial fibrillation Status: Chronic Assessment and Plan: She is currently in sinus rhythm. She is not on anticoagulation. Continue diltiazem (8) Hypertension: Code(s): I10 - Essential (primary) hypertension Status: Chronic Assessment and Plan: Blood pressures a
[2021-02-02 20:00] VITALS: BP 155/77; PULSE 82; RESP 18; TEMP 36.2; O2SAT 92
[2021-02-02] MEDS: ENOXAPARIN 40 MG/0.4 ML SYRINGE SUB-Q (20:53)
[2021-02-03] VITALS: BP 156/82; PULSE 86; RESP 18; TEMP 35.9; O2SAT 97
[2021-02-03 04:00] VITALS: BP 168/70; PULSE 82; RESP 18; TEMP 35.9; O2SAT 100
[2021-02-03 06:10] LABS: Basophils Absolute Auto 0.1 K/mm3 (0.0-0.1); Basophils Percent Auto 0.5 % (0.2-1.2); Eosinophils Absolute Auto 0.2 K/mm3 (0-0.3); Eosinophils Percent Auto 2.5 % (0-4.4); Hematocrit 42.8 % (37.0-47.0); Hemoglobin 13.9 g/dL (12.0-15.0); Immature Granulocyte Absolute 0.04 K/mm3 (0.00-0.031); Immature Granulocyte Percent A 0.4 % (0-0.5); Lymphocytes Absolute Auto 2.49 K/mm3 (0.9-3.2); Lymphocytes Percent Auto 26.4 % (18.3-44.2); Mean Corpuscular HGB Conc 32.5 g/dl (32-36); Mean Corpuscular Hemoglobin 31.4 pg (26-34); Mean Corpuscular Volume 96.6 fl (80-100); Mean Platelet Volume 10.8 fl (7.4-10.4); Monocytes Absolute Auto 0.8 K/mm3 (0.1-0.6); Monocytes Percent Auto 8.1 % (2.6-8.5); Neutrophils Absolute Auto 5.9 K/mm3 (1.3-6.7); Neutrophils Percent Auto 62.1 % (45.5-73.1); Platelet Count Result 318 k/mm3 (150-375); Red Blood Count 4.43 M/mm3 (4.2-5.4); Red Cell Distribution Width 13.1 % (11.5-14.5); White Blood Count 9.4 K/mm3 (4.5-10.0)
[2021-02-03 06:22] LABS: Alanine Aminotransferase 27 U/L (4-35); Albumin Level 3.8 g/dL (3.5-5.1); Alkaline Phosphatase 152 U/L (38-126); Aspartate Amino Transferase 29 U/L (14-36); Bilirubin,Total 0.3 mg/dL (0.2-1.3); Blood Urea Nitrogen 10 mg/dL (7-17); Calcium 9.4 mg/dL (8.4-10.2); Carbon Dioxide > 40 mmol/L (22-30); Chloride 99 mmol/L (98-107); Estimated CRCL calculation 57 ml/min; Estimated Glomerular Filt Rate > 60; Glucose 102 mg/dL (65-105); Potassium 3.3 mmol/L (3.4-5.0); Sodium 141 mmol/L (137-145)
[2021-02-03] MEDS: SALINE LOCK FLUSH 10 ML IV PUSH ×2 (06:30→14:18)
[2021-02-03 08:29] VITALS: BP 142/65; PULSE 81; RESP 20; TEMP 37.3; O2SAT 93
[2021-02-03] MEDS: ASPIRIN 81 MG CHEWABLE TABLET PO (09:21)
[2021-02-03] MEDS: ATORVASTATIN 40 MG TABLET PO (09:21)
[2021-02-03] MEDS: FUROSEMIDE 40 MG TABLET PO (09:22)
[2021-02-03] MEDS: DOCUSATE SODIUM 100 MG CAPSULE PO (09:38)
[2021-02-03] MEDS: dilTIAZem HCL CD 180 MG CAP.ER.24H 360 MG PO (09:38)
[2021-02-03 10:00] VITALS: BP 134/69; PULSE 96; RESP 16; TEMP 36; O2SAT 100
--- NOTE | 2021-02-03 10:40 | PC.NURSE ---
[employer] spoke with Chitra Sahni pt may resume regular diet procedure will be scheduled outpatient.
[2021-02-03 11:54] VITALS: BP 143/50; PULSE 106; RESP 18; TEMP 36.3; O2SAT 100
[2021-02-03] MEDS: POTASSIUM CHLORIDE 20 MEQ PACKET (FOR LIQUID) 40 MEQ PO (14:15)
--- NOTE | 2021-02-03 15:18 | PC.NURSE ---
On 02/03/21, the student, [ROXY TANG], provided care and completed [facility] documentation on this patient. I have reviewed the student's documentation and agree with the findings.
--- NOTE | 2021-02-03 15:43 | PM.DS ---
DS: Admitting Diagnosis Admitting Diagnosis Admitting Diagnosis: Ureteral stone, UTI DS: Discharge Diagnosis Discharge Diagnosis (1) Left ureteral stone: Code(s): N20.1 - Calculus of ureter Status: Acute Assessment and Plan: She presented with severe left-sided abdominal and flank pain. CT abd/pelvis demonstrated 8mm left proximal ureteral obstructing calculus with left-sided hydroureteronephrosis. She underwent cystoscopy, left retrograde pyelogram, and left ureteral stent placement on 01/30/[address] Coffey. She tolerated the procedure well. She did have continued renal colic postoperatively. Repeat abdominal plain films show stent in expected position with persistent 4 mm left nephrolithiasis with mild left hydronephrosis. She experienced hematuria following stent placement which resolved. Pain slowly improved. She will need to follow-up with urology for definitive stone management at a later date. (2) UTI (urinary tract infection): Code(s): N39.0 - Urinary tract infection, site not specified Status: Acute Assessment and Plan: Urinalysis grossly abnormal at outside facility with concerns for contaminated specimen based on many squamous cells. That culture demonstrated multiple organisms suspicious for external shelby, again consistent with contamination. CT abd/pelvis demonstrated perinephric stranding suspicious for pyelonephritis. She complained of flank pain but did not endorse dysuria, urgency, or frequency prior to presentation. Temperature was elevated with Tmax 100.4 at outside facility but she remained afebrile during inpatient stay. Clean catch urine culture collected on 01/30/2021 and urine culture collected from cystoscopy both negative, however this was after receiving antibiotics. She was started on empiric IV Levaquin and will continue oral antibiotics to complete 7 days of antibiotic therapy. Blood cultures negative to date and final cultures will be monitored. Leukocytosis resolved. (3) REGINALD (acute kidney injury): Code(s): N17.9 - Acute kidney failure, unspecified Status: Resolved Assessment and Plan: Resolved. Creatinine upon presentation was 1.5. Likely secondary to hydronephrosis. Renal function returned to baseline following stent placement. (4) Hydronephrosis: Code(s): N13.30 - Unspecified hydronephrosis Status: Acute Assessment and Plan: As above. (5) COPD (chronic obstructive pulmonary disease): Code(s): J44.9 - Chronic obstructive pulmonary disease, unspecified Status: Chronic Assessment and Plan: Not in acute exacerbation. She was maintaining adequate oxygen saturations on room air. Continue albuterol PRN (6) Congestive heart failure: Code(s): I50.9 - Heart failure, unspecified Status: Chronic Assessment and Plan: Appears clinically compensated. She follows with Dr. Cortez at [place]. Continue Lasix at home. (7) Atrial fibrillation: Code(s): I48.91 - Unspecified atrial fibrillation Status: Chronic Assessment and Plan: She was in sinus rhythm. She is not on systemic anticoagulation, this may be due to paroxysmal nature of atrial fibrillation. Continue diltiazem. She should follow-up with her caregivers non medical to discuss need for chronic anticoagulation. (8) Hypertension: Code(s): I10 - Essential (primary) hypertension Status: Chronic Assessment and Plan: Blood pressures reviewed and were elevated above target. Slowly improved. Continue diltiazem and furosemide. I encouraged her to monitor BP at home 3-4 times weekly and record for review by PCP for further medication adjustment. She had previously been on losartan-HCTZ which was recently discontinued in the outpatient setting. Follow-up with PCP to determine if this should be resumed. (9) Overactive bladder: Code(s): N32.81 - Overactive bladder Status:
== END 2021-02-03 15:20 | disposition home or self-care (01) | DRG 660 ==
PROVIDERS: Nurse Practitioner; Physician Assistant; Urology; Admitting Provider Family Medicine; PCP Internal Medicine; Visit Provider Internal Medicine
PROC: 0T778DZ Dilation of Left Ureter with Intraluminal Device, Via Natural or Artificial Opening Endoscopic (ICD-10-PCS; CPT 52352; principal; 2021-01-30 13:45)
DX: N13.6 Pyonephrosis (principal); I48.20 Chronic atrial fibrillation, unspecified; N17.9 Acute kidney failure, unspecified; I11.0 Hypertensive heart disease with heart failure; E87.6 Hypokalemia; I50.9 Heart failure, unspecified; J44.9 Chronic obstructive pulmonary disease, unspecified; N32.81 Overactive bladder; F41.9 Anxiety disorder, unspecified; E78.5 Hyperlipidemia, unspecified; E66.9 Obesity, unspecified; Z68.36 Body mass index [BMI] 36.0-36.9, adult
CPT/HCPCS: 36415; 36569; 74018; 74019; 74420; 76775; 80048; 80053; 81001; 83605; 83735; 85025; 87040; 87086; 96365; 96375; 96376; A9270; C1751; C1758; C1769; C2617; G0378; G0379; J0330; J1100; J1170; J1650; J1956; J2405; J2704; J3010; J7030; J7120; Q9966

== ENCOUNTER → 2021-02-17 00:21 | Outpatient (CLI) | payer MEDICARE, MEDICAID, SELFPAY ==
[2021-02-17 20:46] LABS: SARS-CoV-2 RNA PCR Negative
== END ==
PROVIDERS: PCP Internal Medicine; Visit Provider Urology
DX: Z01.812 Encounter for preprocedural laboratory examination (principal); Z20.822 Contact with and (suspected) exposure to COVID-19
CPT/HCPCS: C9803; U0003; U0005

== ENCOUNTER 2021-02-18 08:49 | Outpatient (CLI) | payer MEDICARE, MEDICAID, SELFPAY ==
--- NOTE | 2021-02-18 09:00 | ECG_ITS ---
Measurements Intervals [place] Rate: 90 P: 65 GA: 155 QRS: -1 QRSD: 90 T: 28 QT: 336 QTc: 412 Interpretive Statements SINUS RHYTHM BASELINE ARTIFACT- I, II, III, AVR, AVL, AVF NORMAL ECG Electronically Signed On 02-18-2021 9:19:10 CDT by Troy Barker D.O.
[2021-02-18 10:10] LABS: INR 0.9; Prothrombin Time 12.5 Seconds (11.1-14.7)
[2021-02-18 10:11] LABS: Partial Thromboplastin Time 23.3 SECONDS (22.3-36.8)
== END 2021-02-18 08:50 | disposition home or self-care (01) ==
LOC: ANHSURGERY 03-12 08:49
PROVIDERS: PCP Internal Medicine; Visit Provider Urology
DX: Z01.818 Encounter for other preprocedural examination (principal); E78.5 Hyperlipidemia, unspecified; I10 Essential (primary) hypertension
CPT/HCPCS: 36415; 85610; 85730; 93005

== ENCOUNTER 2021-02-20 01:55 | Day surgery (SDC) | payer MEDICARE, MEDICAID, SELFPAY ==
[2021-02-16 14:21] VITALS: BMI 34.3
--- NOTE | 2021-02-19 14:57 | WPDANESEPPF ---
Anes - Initial Pre Proc Eval Procedure: Operation Date: 02/20/21 10:30 Proposed Procedures p Left Extracorporeal Shock Wave Lithotripsy - Floyd Coffey MD s Possible Cystoscopy, Left Ureteroscopy With Possible Left Stent Exchange - Floyd Coffey MD s Possible Holmium Laser Procedure - Floyd Coffey MD Date/Time: 02/19/21 14:57 Surgeon: Floyd Coffey MD Pre Op Diagnosis: Left Renal Stone Patient Data Age: 65 Gender: F Height: 1.6 m Weight: 88 kg Allergies Allergy/AdvReac Type Severity Reaction Status Date / Time Penicillins Allergy Severe Difficulty Verified 02/16/21 14:50 Breathing Home Medications Medication Instructions Recorded Confirmed Type albuterol sulfate 2 puff INHALATION PRN PRN 01/29/21 02/16/21 History aspirin 81 mg PO DAILY 01/29/21 02/16/21 History atorvastatin 40 mg PO DAILY 01/29/21 02/16/21 History diltiazem HCl [Cardizem CD] 360 mg PO DAILY 01/29/21 02/16/21 History furosemide 40 mg PO DAILY 01/29/21 02/16/21 History oxybutynin chloride 10 mg PO DAILY 01/29/21 02/16/21 History levofloxacin 750 mg PO DAILY #2 tablet 02/03/21 02/16/21 Rx ferrous sulfate 325 mg PO DAILY 02/16/21 02/16/21 History multivitamin 1 tablet PO DAILY 02/16/21 02/16/21 History Patient hx anesthesia problems: none Family hx anesthesia problems: none PMFSH Past Medical History Medical History (Updated 02/19/21 @ 14:59 by Duy Davila MD) Anxiety Asthma Atrial fibrillation CAD (coronary artery disease) Congestive heart failure COPD (chronic obstructive pulmonary disease) Hyperlipidemia Hypertension Overactive bladder PAD (peripheral artery disease) Rheumatoid arthritis Surgical History Surgical History H/O shoulder surgery left History of bilateral tubal ligation History of carpal tunnel release History of intravascular stent placement right leg Family History Family History Father Diabetes mellitus Congestive cardiac failure Cerebrovascular accident Malignant neoplasm of prostate Mother Diabetes mellitus Congestive cardiac failure Ovarian cancer Sibling Drug addiction Social History Social History Social History: the patient is and has 2 children. 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 The patient desires to be a full code. She is a lifelong nonsmoker nondrinker in and does not do any drugs. 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 She occasionally has a Glass of wine. Smoking status: Never smoker Alcohol intake: never Drinks per week: 1 Substance use: never Substance use type: does not use Living arrangements: with family Spiritual care concerns: No Anes - Eval Final PreProcedure Day of Procedure 02/19/21 14:57 Patient weight: obese Heart: regular rate and rhythm Lungs: clear to auscultation and normal air movement Airway: Mallampati scale class II Neurological: alert and oriented Last oral intake: >/= 8 hours ASA classification: III Emergent: no Anesthetic plan: proceed Anesthesia type and monitoring: general LMA Informed Consent: The patient's anesthetic plan and its attendant risks and benefits were discussed with the patient/family/POA. Questions were solicited and answers provided to the satisfaction of the patient/family/POA.
--- NOTE | ~2021-02-20 | XR_ITS ---
EXAMINATION: XR abdomen/kub 1V DATE: 02/20/2021 08:10 INDICATION: Ureteral stone. TECHNIQUE: A supine view of the abdomen on 2 radiographs was obtained. COMPARISON: Abdomen radiographs 02/02/2021, 01/30/2021 FINDINGS: There are no dilated loops of bowel. There is a left internal ureteral stent in expected po sition. There are phleboliths in left pelvis. There are two 3 mm stones in left kidney. IMPRESSION: 1. Two 3 mm stones in left kidney. 2. Left internal ureteral stent in expected position. Reviewed, dictated and finalized at location A.
[2021-02-20 08:22] VITALS: BP 110/86; PULSE 85; RESP 20; TEMP 36.2; O2SAT 99
--- NOTE | 2021-02-20 09:03 | WPDHPUPDATE1 ---
History and Physical Update Update Date/Time: 02/20/21 09:03 History and Physical has been reviewed, including an updated exam of the patient. There are NO changes in the patient's condition. Risks, benefits, and alternatives have been discussed and questions answered. Patient agrees to proceed with procedure. Proceed with left renal lithotripsy
--- NOTE | 2021-02-20 09:24 | SUR.PREOP ---
0915-INFORMED BY DR. STARKS PT DOES NOT HAVE INSURANCE CLEARANCE AND WILL NOT PROCEED AT THIS TIME BUT, WILL KEEP PT IN PREOP AREA TO AWAIT CLEARANCE.
--- NOTE | 2021-02-20 14:01 | SUR.PREOP ---
0935-DR. STARKS SPEAKING WITH PT, PT HAS NO INSURANCE AUTHORIZATION FOR PROCEDURE AND HE INFORMS PT HIS OFFICE IS WORKING WITH INSURANCE COMPANY. WILL NOT START IV UNTIL DECISION MADE. 0944-DAUGHTERMARIA L NOTIFIED OF ABOVE. 1145-DR. STARKS IN TO SPEAK WITH PT, STILL NO INSURANCE AUTHORIZATION, SURGERY CANCELLED. 1147-DAUGHTER NOTIFIED SURGERY CANCELLED--STATES SHE WILL BE HERE IN 20 MINUTES TO MANAGER PROPOSAL PT. 1155-PT AWARE I SPOKE WITH DAUGHTER, PT TEARFUL, UPSET ABOUT CANCELATION, EMPATHY GIVEN. PO FLUIDS AND CRACKERS OFFERED, DECLINES. 1235-DAUGHTER HAS NOT ARRIVED, CALLED DAUGHTER, STATES SHE WILL BE HERE IN 15 MINUTES. 1240-PT AWARE AND STATES SHE WANTS TO LEAVE AREA AND WAIT OUTSIDE FOR DAUGHTER. ASK PT TO REMAIN UNTIL I RETURN. 1250-SPOKE WITH BO KAUR ABOUT ABOVE, STATES MAY DISCHARGE PT TO OUTSIDE BENCH REQUESTED. 1255-PT AWARE SHE MAY DISCHARGE TO WAITING ROOM OR OUTSIDE BENCH. 1305-PT TAKEN PER W/C TO LOBBY. 1310-DAUGHTER ARRIVED, EXPLAINED FOLLOW UP TO DAUGHTER, PT DISCHARGED.
== END 2021-02-20 13:10 | disposition home or self-care (01) ==
PROVIDERS: PCP Internal Medicine; Visit Provider Urology
DX: N20.0 Calculus of kidney (principal); Z53.8 Procedure and treatment not carried out for other reasons
CPT/HCPCS: 74018; 99212; A9270; G0463; J2250; J3010

== ENCOUNTER → 2021-03-03 01:28 | Outpatient (CLI) | payer MEDICARE, MEDICAID, SELFPAY ==
[2021-03-03 18:55] LABS: SARS-CoV-2 RNA PCR Negative
== END ==
PROVIDERS: PCP Internal Medicine; Visit Provider Urology
DX: Z01.812 Encounter for preprocedural laboratory examination (principal); Z20.822 Contact with and (suspected) exposure to COVID-19
CPT/HCPCS: C9803; U0003; U0005

== ENCOUNTER 2021-03-06 05:44 | Day surgery (SDC) | payer MEDICARE, MEDICAID, SELFPAY ==
[2021-02-24 15:16] VITALS: BMI 36.5
[2021-03-06] VITALS (8 sets, daily range): BP systolic 130–151; BP diastolic 68–79; PULSE 60–90; RESP 12–18; TEMP 36.6–36.8; O2SAT 98–100
--- NOTE | ~2021-03-06 | XR_ITS ---
EXAMINATION: XR abdomen/kub 1V DATE: 03/06/2021 06:42 INDICATION: Lithotripsy TECHNIQUE: A supine view of the abdomen on 2 radiographs was obtained. COMPARISON: 02/20/2021 FINDINGS: Left internal ureteral stent remains in expected position. Again seen are couple 3 mm stones projecti ng over the left renal pelvis. Phlebolith in the left hemipelvis. Normal bowel gas pattern. Lung base s are clear. Heart size is normal. Multilevel severe lumbar facet osteoarthritis. IMPRESSION: 1. A couple unchanged 3 mm left renal stones. 2. Left internal ureteral stent remains in expected position. Reviewed, dictated and finalized at location A.
--- NOTE | 2021-03-06 07:37 | WPDHPUPDATE1 ---
History and Physical Update Update Date/Time: 03/06/21 07:37 History and Physical has been reviewed, including an updated exam of the patient. There are NO changes in the patient's condition. Risks, benefits, and alternatives have been discussed and questions answered. Patient agrees to proceed with procedure.
[2021-03-06] MEDS: LACTATED RINGERS 1,000 ML 30 ML IV CONT (08:09)
--- NOTE | 2021-03-06 08:12 | WPDANESEPPF ---
Anes - Initial Pre Proc Eval Procedure: Operation Date: 03/06/21 09:00 Proposed Procedures p Left Renal Extracorporeal Shock Wave Lithotripsy - Floyd Coffey MD s Possible Left Ureteroscopy, - Floyd Coffey MD s Holmium Laser with Left Stent Exchange - Floyd Coffey MD Date/Time: 03/06/21 08:12 Surgeon: Floyd Coffey MD Pre Op Diagnosis: left renal stone Patient Data Age: 65 Gender: F Height: 5 ft 3 in Weight: 92.5 kg Last Vital Signs Temp 36.6 C 03/06/21 06:56 Pulse 81 03/06/21 06:56 Resp 16 03/06/21 06:56 BP 131/69 03/06/21 06:56 Pulse Ox 99 03/06/21 06:56 Allergies Allergy/AdvReac Type Severity Reaction Status Date / Time Penicillins Allergy Severe Difficulty Verified 03/06/21 07:18 Breathing/hives Home Medications Medication Instructions Recorded Confirmed Type albuterol sulfate 2 puff INHALATION PRN PRN 01/29/21 03/06/21 History aspirin 81 mg PO DAILY 01/29/21 03/06/21 History atorvastatin 40 mg PO DAILY 01/29/21 03/06/21 History diltiazem HCl [Cardizem CD] 360 mg PO DAILY 01/29/21 03/06/21 History furosemide 40 mg PO DAILY 01/29/21 03/06/21 History oxybutynin chloride 10 mg PO DAILY 01/29/21 03/06/21 History ferrous sulfate 325 mg PO DAILY 02/16/21 03/06/21 History multivitamin 1 tablet PO DAILY 02/16/21 03/06/21 History Patient hx anesthesia problems: none Family hx anesthesia problems: none PMFSH Past Medical History Medical History Anxiety Asthma Atrial fibrillation CAD (coronary artery disease) Congestive heart failure COPD (chronic obstructive pulmonary disease) Hyperlipidemia Hypertension Overactive bladder PAD (peripheral artery disease) Rheumatoid arthritis Surgical History Surgical History H/O shoulder surgery left History of bilateral tubal ligation History of carpal tunnel release History of intravascular stent placement right leg Family History Family History Father Diabetes mellitus Congestive cardiac failure Cerebrovascular accident Malignant neoplasm of prostate Mother Diabetes mellitus Congestive cardiac failure Ovarian cancer Sibling Drug addiction Social History Social History Social History: the patient is and has 2 children. She stated that her 2 children of the durable power criminal defense attorney for healthcare. The patient desires to be a full code. She is a lifelong nonsmoker nondrinker in and does not do any drugs. 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 She occasionally has a Glass of wine. Smoking status: Never smoker Alcohol intake: never Substance use: never Substance use type: does not use Living arrangements: with family Spiritual care concerns: No Anes - Eval Final PreProcedure Day of Procedure 03/06/21 08:12 Patient weight: obese Heart: regular rate and rhythm Lungs: decreased breath sounds Airway: Mallampati scale class II Neurological: alert and oriented Last oral intake: >/= 8 hours ASA classification: III Emergent: no Anesthetic plan: proceed Anesthesia type and monitoring: general LMA and standard monitoring Informed Consent: The patient's anesthetic plan and its attendant risks and benefits were discussed with the patient/family/POA. Questions were solicited and answers provided to the satisfaction of the patient/family/POA.
[2021-03-06] MEDS: levoFLOXacin 500 MG/D5W 100 ML 500 MG/100 ML BAG 100 MG IVPB (08:39)
--- NOTE | 2021-03-06 09:34 | P.OP_ITS ---
Procedure Note - Detailed Date of procedure: 03/06/21 Pre-op diagnosis: left renal stone Post-op diagnosis: same Procedure performed: Cystoscopy, left ureteral stent exchange 4.8 Martiniquais contour, ESWL left renal calculus Description of procedure: Patient is taken the operative suite and correctly identified. Once anesthesia was obtained stones in the kidney were localized in both planes. Two thousand five hundred shocks were given to the stones. At this point the patient was placed in frog-leg position and prepped and draped usual sterile fashion. Sixteen Martiniquais scope was inserted the bladder. The prior stent was visualized grasped and brought out the meatus. Guidewire was passed through the stent. 4.8 Martiniquais contour stent was then placed over the guidewire with the proximal end coiled in the renal pelvis and the distal in the bladder. Patient is taken recovery room stable condition. She will follow up in 7-10 days with a KUB. Anesthesia: GLMA Surgeon: Floyd Coffey MD Drains: Yes Packing: No Pathology: none sent Complications: No immediate complications Condition: stable Disposition: PACU
== END 2021-03-06 11:54 | disposition home or self-care (01) ==
PROVIDERS: PCP Internal Medicine; Visit Provider Urology
PROC: (CPT 50590; principal; 2021-03-06 09:00)
PROC: (CPT 52352; 2021-03-06 09:00)
PROC: (CPT 52332; 2021-03-06 09:00)
DX: N20.0 Calculus of kidney (principal); I48.91 Unspecified atrial fibrillation; I25.10 Atherosclerotic heart disease of native coronary artery without angina pectoris; I11.0 Hypertensive heart disease with heart failure; I50.9 Heart failure, unspecified; J44.9 Chronic obstructive pulmonary disease, unspecified; I73.9 Peripheral vascular disease, unspecified; M06.9 Rheumatoid arthritis, unspecified; F41.9 Anxiety disorder, unspecified; Z95.820 Peripheral vascular angioplasty status with implants and grafts; Z79.82 Long term (current) use of aspirin; Z79.51 Long term (current) use of inhaled steroids; E66.9 Obesity, unspecified; Z68.36 Body mass index [BMI] 36.0-36.9, adult
CPT/HCPCS: 52332; 50590; 74018; A9270; C1769; C2617; C9803; J1956; J2250; J2370; J2405; J2704; J3010; J7030; J7120; U0003; U0005

== ENCOUNTER 2021-03-19 09:46 | Outpatient (CLI) | payer MEDICARE, MEDICAID, SELFPAY ==
--- NOTE | ~2021-03-19 | XR_ITS ---
EXAMINATION: XR abdomen/kub 1V INDICATION: Calcium kidney stone, left side TECHNIQUE: Supine views of the abdomen were obtained on 2 radiographs. COMPARISON: 03/06/2020 FINDINGS: A left internal ureteral stent is in expected position. There are two 3 mm stones of the le ft kidney adjacent to the coiled portion of the stent. No stones are identified along the course of t he stent. There are phleboliths of the pelvis. The bowel gas pattern is normal. There is mild osteoar thritis of the hips. Moderate lower lumbar spondylosis is noted. IMPRESSION: 1. Left internal ureteral stent in expected position to 3 mm stones in the left renal pelvis adjacent to the stent. Reviewed, dictated and finalized at location A.
== END 2021-03-19 09:47 | disposition home or self-care (01) ==
LOC: ANHIMG 09:52
PROVIDERS: PCP Internal Medicine; Visit Provider Urology
DX: N20.0 Calculus of kidney (principal); Z96.0 Presence of urogenital implants
CPT/HCPCS: 74018

== ENCOUNTER → 2021-03-23 02:18 | Outpatient (CLI) | payer MEDICARE, MEDICAID, SELFPAY ==
[2021-03-23 17:04] LABS: SARS-CoV-2 RNA PCR Negative
== END ==
PROVIDERS: PCP Internal Medicine; Visit Provider Urology
DX: Z01.812 Encounter for preprocedural laboratory examination (principal); Z20.822 Contact with and (suspected) exposure to COVID-19
CPT/HCPCS: C9803; U0003; U0005

== ENCOUNTER 2021-03-26 00:34 | Day surgery (SDC) | payer MEDICARE, MEDICAID, SELFPAY ==
[2021-03-19 13:44] VITALS: BMI 36.3
--- NOTE | 2021-03-24 08:51 | PC.NURSE ---
Pt states no changes in health history or medications since initial interview. Pt had Covid testing completed yesterday. New pre-op instructions reviewed with pt. Pt denies any questions at this time.
[2021-03-26] VITALS (10 sets, daily range): BP systolic 91–139; BP diastolic 40–71; PULSE 68–91; RESP 12–24; TEMP 36.4–36.6; O2SAT 96–100
--- NOTE | ~2021-03-26 | XR_ITS ---
EXAMINATION: XR retrograde pyelo w/stent LT EXAM DATE: 03/26/2021 08:08 INDICATION: Stone extraction. TECHNIQUE: Fluoroscopy used during XR retrograde pyelo w/stent LT performed by Dr. Floyd bhatt MD, urologist. The radiologist Shai Jarrett M.D. dictating this report of the image(s) availabl e was not present for the procedure. Total fluoroscopic time of 40 seconds. The DAP for this proced ure was 639 radcm2. A total of 37 images sent to PACS from the exam. Cine run(s) available for revi ew. FINDINGS: Left ureter was cannulated, injected. Reportedly stone was extracted. Mild left hydronephr osis. A double-J ureteral stent was placed, in expected position. Correlate with procedure note. IMPRESSION: Fluoroscopy used during left retrograde pyelogram, stent placement. Reviewed, dictated and finalized at location B.
--- NOTE | 2021-03-26 07:05 | WPDANESEPPF ---
Anes - Initial Pre Proc Eval Procedure: Operation Date: 03/20/21 13:00 Proposed Procedures p Cystoscopy, Left Ureteroscopy, Left Retrograde Pyelogram, Left Stone Extraction, Left Stent Removal, - Floyd Coffey MD s Possible Holmium Laser Procedure - Floyd Coffey MD Operation Date: 03/26/21 07:30 Proposed Procedures p Cystoscopy, Left Ureteroscopy with Stone Extraction, - Floyd Coffey MD s Possible Holmium Laser Stent Removal - Floyd Coffey MD Date/Time: 03/26/21 07:05 Surgeon: Floyd Coffey MD Pre Op Diagnosis: Ureteral Stone Patient Data Age: 65 Gender: F Height: 5 ft 3 in Weight: 91.8 kg Last Vital Signs Temp 36.6 C 03/26/21 06:02 Pulse 91 03/26/21 06:02 Resp 20 03/26/21 06:02 BP 130/62 03/26/21 06:02 Pulse Ox 100 03/26/21 06:02 Allergies Allergy/AdvReac Type Severity Reaction Status Date / Time codeine Allergy Severe Hives Verified 03/26/21 06:11 Penicillins Allergy Severe Difficulty Verified 03/26/21 06:11 Breathing/hives Home Medications Medication Instructions Recorded Confirmed Type albuterol sulfate 2 puff INHALATION PRN PRN 01/29/21 03/26/21 History aspirin 81 mg PO DAILY 01/29/21 03/24/21 History atorvastatin 40 mg PO DAILY 01/29/21 03/26/21 History diltiazem HCl [Cardizem CD] 360 mg PO DAILY 01/29/21 03/26/21 History furosemide 40 mg PO DAILY 01/29/21 03/26/21 History oxybutynin chloride 10 mg PO DAILY 01/29/21 03/24/21 History ferrous sulfate 325 mg PO DAILY 02/16/21 03/24/21 History multivitamin 1 tablet PO DAILY 02/16/21 03/24/21 History Patient hx anesthesia problems: none Family hx anesthesia problems: none PMFSH Past Medical History Medical History Anxiety Asthma Atrial fibrillation CAD (coronary artery disease) Congestive heart failure COPD (chronic obstructive pulmonary disease) Hyperlipidemia Hypertension Overactive bladder PAD (peripheral artery disease) Rheumatoid arthritis Surgical History Surgical History H/O shoulder surgery left History of bilateral tubal ligation History of carpal tunnel release History of intravascular stent placement right leg Family History Family History Father Diabetes mellitus Congestive cardiac failure Cerebrovascular accident Malignant neoplasm of prostate Mother Diabetes mellitus Congestive cardiac failure Ovarian cancer Sibling Drug addiction Social History Social History Social History: the patient is and has 2 children. She stated that her 2 children of the durable power commercial attorney for healthcare. The patient desires to be a full code. She is a lifelong nonsmoker nondrinker in and does not do any drugs. 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 She occasionally has a Glass of wine. Smoking status: Never smoker Alcohol intake: never Substance use: never Substance use type: does not use Living arrangements: with family Spiritual care concerns: No Anes - Eval Final PreProcedure Day of Procedure 03/26/21 07:05 Patient weight: obese Heart: regular rate and rhythm Lungs: decreased breath sounds Airway: Mallampati scale class 1 Neurological: alert and oriented Last oral intake: >/= 8 hours ASA classification: III Emergent: no Anesthetic plan: proceed Anesthesia type and monitoring: general LMA and standard monitoring Informed Consent: The patient's anesthetic plan and its attendant risks and benefits were discussed with the patient/family/POA. Questions were solicited and answers provided to the satisfaction of the patient/family/POA.
[2021-03-26] MEDS: LACTATED RINGERS 1,000 ML 30 ML IV CONT ×2 (07:10→09:52)
--- NOTE | 2021-03-26 07:14 | PM.IMHP ---
H&P: HPI History of Present Illness Date/Time: 03/26/21 07:14 Chief Complaint: left renal calculi Narrative: 65 year old female s/p left renal eswl with residual left renal calculi. Presents for left ureteroscopy with stone extraction today Review of Systems Review of Systems: All systems reviewed & are unremarkable except as noted in HPI and below PMFSH Past Medical History Medical History Anxiety Asthma Atrial fibrillation CAD (coronary artery disease) Congestive heart failure COPD (chronic obstructive pulmonary disease) Hyperlipidemia Hypertension Overactive bladder PAD (peripheral artery disease) Rheumatoid arthritis Surgical History Surgical History H/O shoulder surgery left History of bilateral tubal ligation History of carpal tunnel release History of intravascular stent placement right leg Family History Family History Father Diabetes mellitus Congestive cardiac failure Cerebrovascular accident Malignant neoplasm of prostate Mother Diabetes mellitus Congestive cardiac failure Ovarian cancer Sibling Drug addiction Social History Social History Social History: the patient is and has 2 children. She stated that her 2 children of the durable power sports attorney for healthcare. The patient desires to be a full code. She is a lifelong nonsmoker nondrinker in and does not do any drugs. 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 She occasionally has a Glass of wine. Smoking status: Never smoker Alcohol intake: never Substance use: never Substance use type: does not use Living arrangements: with family Spiritual care concerns: No Meds Home Medications and Allergies Home Medications Medication Instructions Recorded Confirmed Type albuterol sulfate 2 puff INHALATION PRN PRN 01/29/21 03/26/21 History aspirin 81 mg PO DAILY 01/29/21 03/24/21 History atorvastatin 40 mg PO DAILY 01/29/21 03/26/21 History diltiazem HCl [Cardizem CD] 360 mg PO DAILY 01/29/21 03/26/21 History furosemide 40 mg PO DAILY 01/29/21 03/26/21 History oxybutynin chloride 10 mg PO DAILY 01/29/21 03/24/21 History ferrous sulfate 325 mg PO DAILY 02/16/21 03/24/21 History multivitamin 1 tablet PO DAILY 02/16/21 03/24/21 History Allergies Allergy/AdvReac Type Severity Reaction Status Date / Time codeine Allergy Severe Hives Verified 03/26/21 06:11 Penicillins Allergy Severe Difficulty Verified 03/26/21 06:11 Breathing/hives Vital Signs Vital Signs - 24 hr 03/26/21 06:02 Temperature 36.6 C Pulse Rate 91 Respiratory Rate 20 Blood Pressure 130/62 Pulse Oximetry 100 Exam Const: General: cooperative and comfortable Eyes: General: appearance normal, both eyes and all related structures Neck: Neck: normal visual inspection Chest: Chest palpation & inspection: normal inspection of the chest Resp: Effort & Inspection: normal respiratory effort Cardio: Rate: regular rate Rhythm: regular rhythm GI: Inspection: normal to inspection GI Palp: Yes Soft to palpation Assessment and Plan Assessment and plan (1) Left renal stone: Code(s): N20.0 - Calculus of kidney Status: Acute Assessment and Plan: cystoscopy, left retrograde, left ureteroscopy with stone extraction , possible laser, stent exchange
--- NOTE | 2021-03-26 07:18 | WPDHPUPDATE1 ---
History and Physical Update Update Date/Time: 03/26/21 07:18 History and Physical has been reviewed, including an updated exam of the patient. There are NO changes in the patient's condition. Risks, benefits, and alternatives have been discussed and questions answered. Patient agrees to proceed with procedure.
[2021-03-26] MEDS: ceFAZolin 2 GM/D5W 50 ML 2 GM/50 ML BAG IVPB (07:26)
[2021-03-26] MEDS: LIDOCAINE HCL 2% GEL UROJET 10 ML PKG MUCOUS MEM (07:44)
--- NOTE | 2021-03-26 08:04 | PM.PROC ---
Procedure Note - Detailed Date of procedure: 03/26/21 Pre-op diagnosis: Ureteral Stone Left renal calculus Post-op diagnosis: same (No significant stone burden) Procedure performed: Cystoscopy, left retrograde pyelogram, left ureteroscopy, left stent exchange 4.8 Mohawk contour Description of procedure: Patient is taken the operative suite and correctly identified. Once anesthesia was obtained she was placed in dorsal lithotomy position and prepped draped usual sterile fashion. Twenty-two Mohawk scope was inserted in bladder and the stent was grasped and brought to the meatus. Guidewire was inserted through the stent. Ureteral access sheath was then passed. Flexible ureteral scope was inserted all the way up to the kidney. All the calices were inspected. She did have quite a bit of what appeared to be little stone fragments but upon placing the grasper on the stones they just simply dissolved. Reinspection revealed no significant stone burden at this time. Pyelogram was performed. 4.8 contour stent was then placed over guidewire with the renal pelvis contained the proximal end of the stent in the distal end in the bladder. 2% viscous lidocaine was inserted urethra patient is taken recovery stable condition. She will follow up next week for stent removal. Anesthesia: GLMA Surgeon: Floyd Coffey MD Drains: Yes Packing: No Pathology: none sent Complications: No immediate complications Condition: stable Disposition: PACU
[2021-03-26] MEDS: fentaNYL CITRATE INJ (*CRX) 100 MCG/2 ML VIAL 25 MCG IV PUSH (08:23)
== END 2021-03-26 10:45 | disposition home or self-care (01) ==
PROVIDERS: PCP Internal Medicine; Visit Provider Urology
PROC: (CPT 52352; principal; 2021-03-26 07:30)
DX: N20.2 Calculus of kidney with calculus of ureter (principal); I48.91 Unspecified atrial fibrillation; J44.9 Chronic obstructive pulmonary disease, unspecified; I25.10 Atherosclerotic heart disease of native coronary artery without angina pectoris; I11.0 Hypertensive heart disease with heart failure; I50.9 Heart failure, unspecified; E78.5 Hyperlipidemia, unspecified; I73.9 Peripheral vascular disease, unspecified; M06.9 Rheumatoid arthritis, unspecified; N32.81 Overactive bladder; F41.9 Anxiety disorder, unspecified; Z79.51 Long term (current) use of inhaled steroids; Z79.82 Long term (current) use of aspirin; Z95.820 Peripheral vascular angioplasty status with implants and grafts; E66.9 Obesity, unspecified; Z68.35 Body mass index [BMI] 35.0-35.9, adult
CPT/HCPCS: 52332; 74420; A9270; C1769; C1894; C2617; C9803; J0131; J0690; J1100; J2250; J2370; J2405; J2704; J3010; J7120; Q9966; U0003; U0005

== ENCOUNTER 2024-04-06 09:37 | Outpatient (CLI) | payer MEDICARE, SELFPAY ==
--- NOTE | ~2024-04-06 | CT_ITS ---
Non-contrast CT scan of the Abdomen and Pelvis Clinical indication: Kidney stone Technique: 2.5 mm axial scans were obtained through the abdomen and pelvis without intravenous or or al contrast. Dose reduction technique was used on this scan by utilizing automated exposure control a nd iterative reconstruction technique. The dose-length product (DLP) was 341.32 mGy-cm. Findings: Images through the lung bases reveal no abnormalities. There is no evidence of renal or ureteral calculi. The kidneys and the ureters are nondilated. The liver, spleen, pancreas, gallbladder, and adrenals appear normal. There is no aortic aneurysm. There is no evidence of bowel obstruction. Images through the pelvis were performed. There is no evidence of ascites or lymphadenopathy. Urinary bladder unremarkable. No pelvic mass seen. No ascites. Impression: No significant abnormality seen. Reviewed, dictated and finalized at [facility]. Impression: No significant abnormality seen.
== END 2024-04-06 09:38 | disposition home or self-care (01) ==
PROVIDERS: PCP Internal Medicine; Visit Provider Internal Medicine
DX: N20.0 Calculus of kidney (principal)
CPT/HCPCS: 74176

== ENCOUNTER 2024-10-09 11:46 | Outpatient (CLI) | payer MEDICARE, SELFPAY ==
[2024-10-09 12:19] LABS: Basophils Percent Auto 0.5 % (0.2-1.2); Eosinophils Absolute Auto 0.4 K/mm3 (0-0.3); Eosinophils Percent Auto 4.9 % (0-4.4); Hematocrit 38.6 % (37.0-47.0); Hemoglobin 12.2 g/dL (12.0-15.0); Immature Granulocyte Absolute 0.02 K/mm3 (0.00-0.031); Immature Granulocyte Percent A 0.3 % (0-0.5); Lymphocytes Absolute Auto 2.12 K/mm3 (0.9-3.2); Lymphocytes Percent Auto 27.5 % (18.3-44.2); Mean Corpuscular HGB Conc 31.6 g/dl (32-36); Mean Corpuscular Hemoglobin 30.5 pg (26-34); Mean Corpuscular Volume 96.5 fl (80-100); Mean Platelet Volume 10.9 fl (7.4-10.4); Monocytes Absolute Auto 0.6 K/mm3 (0.1-0.6); Monocytes Percent Auto 8.1 % (2.6-8.5); Neutrophils Absolute Auto 4.5 K/mm3 (1.3-6.7); Neutrophils Percent Auto 58.7 % (45.5-73.1); Platelet Count Result 294 k/mm3 (150-375); Red Cell Distribution Width 13.3 % (11.5-14.5); White Blood Count 7.7 K/mm3 (4.5-10.0)
[2024-10-09 12:32] LABS: Alanine Aminotransferase 15 U/L (6-35); Albumin Level 3.9 g/dL (3.5-5.1); Alkaline Phosphatase 114 U/L (38-126); Anion Gap 6 mmol/L (4-12); Aspartate Amino Transferase 25 U/L (14-36); Bilirubin,Total 0.5 mg/dL (0.2-1.3); Blood Urea Nitrogen 17 mg/dL (7-17); Calcium 9.7 mg/dL (8.4-10.2); Carbon Dioxide 30 mmol/L (22-30); Chloride 106 mmol/L (98-107); Cholesterol 147 mg/dL (0-200); Estimated Glomerular Filt Rate 45; Glucose 103 mg/dL (65-110); HDL Direct 28 mg/dL; Potassium 3.3 mmol/L (3.4-5.0); Sodium 142 mmol/L (137-145); Triglycerides 168 mg/dL (<150)
[2024-10-09 12:40] LABS: Hemoglobin A1C 6.3 % (<5.7)
[2024-10-09 12:42] LABS: LDL Cholesterol Direct 70 mg/dL
[2024-10-09 12:54] LABS: Free T4 Free Thyroxine 1.59 ng/dL (0.78-2.19); Vitamin D 25 Hydroxy 24.2 ng/mL
[2024-10-09 13:01] LABS: Thyroid Stimulating Hormone 0.017 uIU/mL (0.465-4.680)
== END 2024-10-09 11:47 | disposition home or self-care (01) ==
PROVIDERS: PCP Internal Medicine; Visit Provider Internal Medicine
DX: E78.00 Pure hypercholesterolemia, unspecified (principal); I10 Essential (primary) hypertension; R73.9 Hyperglycemia, unspecified; E55.9 Vitamin D deficiency, unspecified
CPT/HCPCS: 36415; 80053; 80061; 82306; 83036; 84439; 84443; 85025

== ENCOUNTER 2025-05-16 10:55 | Outpatient (CLI) | payer MEDICARE, SELFPAY ==
--- OUTSIDE RECORDS SUMMARY | 2025-05-16 11:04 | XMS_ITS | Data Portability ---
Author Organization [facility], Main Office Address [address] [place] [address] Assessment No assessment recorded. Plan of Treatment Reminders Order Date Submit Date Provider Last Modified By Organization Details Last Modified Time Details Appointments None recorded. Lab vitamin D, 25-hydroxy, total, serum [address] ([facility]), [address] [place], [address], 5 09:00:44 CBC w/ auto diff [address] ([facility]), [address] [place], [address], 5 09:00:43 CMP, serum or plasma [address] ([facility]), [address] [place], [address], 5 09:00:43 lipid panel, serum [address] ([facility]), [address] [place], [address], 5 09:00:43 TSH, serum or plasma [address] ([facility]), [address] [place], [address], 5 09:00:43 T4, free, serum 2024 025 [email or web address] [facility] ([facility]), [address] [place], [address], 5 09:00:43 lipid panel, serum 2023 [facility] ([facility]), [address] [place], [address], 4 21:16:35 CMP, serum or plasma 2023 024 [facility] ([facility]), [address] [place], [address], 4 20:42:56 TSH, serum or plasma 2023 024 [facility] ([facility]), [address] [place], [address], 4 22:55:41 T4, free, serum 2023 024 [facility] ([facility]), [address] [place], [address], 4 22:55:41 HbA1c (hemoglobin A1c), blood 2023 024 [facility] ([facility]), [address] [place], [address], 5 16:29:44 vitamin D, 25-hydroxy, total, serum 2023 024 [facility] ([facility]), [address] [place], [address], 4 22:47:37 CBC w/ auto diff 2023 024 [facility] ([facility]), [address] [place], [address], 4 22:47:37 urinalysis complete, reflex culture 2023 024 [email or web address] [facility] ([facility]), [address] [place], [address], 4 09:58:28 lipid panel, serum 2023 024 [facility] ([facility]), [address] [place], [address], 4 11:06:07 CMP, serum or plasma 2023 024 [facility] ([facility]), [address] [place], [address], 4 11:06:12 TSH, serum or plasma 2023 024 [facility] ([facility]), [address] [place], [address], 4 11:47:01 T4, free, serum 2023 024 [facility] ([facility]), [address] [place], [address], 4 11:29:53 CBC w/ auto diff 2023 024 [facility] ([facility]), [address] [place], [address], 4 12:26:29 vitamin D, 25-hydroxy, total, serum 2022 023 [email or web address] [facility] - Outpatient Lab, [address] [place], [address], 3 17:20:18 lipid panel, serum 2022 023 [facility] - Outpatient Lab, [address] [place], [address], 3 11:05:40 CMP, serum or plasma 2022 023 [facility] Outpatient Lab, [address] [place], [address], 3 11:05:50 TSH, serum or plasma 2022 023 [facility], [address] [place], [address], 3 13:51:53 T4, free, serum 2022 023 [facility] Outpatient Lab, [address] [place], [address], 3 13:39:29 CBC w/ auto diff 2022 023 [facility] Outpatient Lab, [address] [place], [address], 3 10:21:32 CBC w/ auto diff 2022 023 [facility], [address] [place], [address], 3 12:41:01 CMP, serum or plasma 2022 023 [facility], [address] [place], [address], 3 12:34:23 lipid panel, serum 2022 023 [facility] Outpatient Lab, [address] [place], [address], 3 12:34:26 Referral None recorded. Procedures None recorded. Surgeries None recorded. Imaging None recorded. Medication Orders ibuprofen 800 mg tablet 2022 023 [id number], [address] [place], [id number], 11:33:49 Patient TargetsNo targets recorded. Patient Instructions Encounter Date Encounter Id Patient Instructions Last Modified By Organization Details Last Modified Time 03/28/2023 [id number] Follow-up hypertension -hyperlipidemia-deg enerative joint disease-asthma -obesity class two all clinically stable. Will check blood work in the form of CBC, CMP and lipid. Will get a bone density scan as well as a Cologuard test patient refusing a mammogram. Has been immunized against pneumococcal. Will continue on current Rx follow-up in six months. Cologuard Bone density scan [email or web address] Not available 03/28/2023 11:33:30 09/26/2023 [id number] dementia rating scale-2* Not available 09/26/2023 12:23:11 alcohol misuse* [email or web address] Not available 09/26/2023 12:23:10 depression screening* [email or web address] Not available 09/26/2023 12:23:11 multi-dimensiona l health assessment questionnaire* [email or web address] Not available 09/26/2023 12:23:10 Personalized [facility] Plan and Screening Recommendations Advance Directives - Do you have one? No Advance Directives - Do we have your advance directive on file in your health record? Primary Prevention/Interven tion (prevents or decreases the chance of common diseases from occurring) Smoking Risk: Non Smoker Alcohol Misuse Screening: Negative Weight: Overweight try to lose 10% of your body weight Physical activity: Need more exercise/physical activity Nutrition: Average Eat heart healthy diet Fall Risk (screened today): Low Vaccines Pneumococcal: No further needed Influenza: Your next one in the fall of next year Chronic Disease Risks Stroke: Intermediate Risk Active diagnosis, Continue current treatment plan Heart Attack: Intermediate Risk Active diagnosis, Continue current treatment plan Clogging of the Arteries: Intermediate Risk Active diagnosis, Continue current treatment plan Diabetes: Intermediate Risk Active diagnosis, Continue current treatment plan Secondary Prevention/Interven tion (detects treatable diseases before they may cause symptoms, disability, or ) Breast Cancer Screening with mammogram: Recommended today, but you have declined Cervical/Uterine/Ov yariel Cancer Screening: No screening necessary Osteoporosis Screening: Recommended today, but you have declined Date Screening Last Performed: Colon Cancer Screening: Colonoscopy Recommended today, but you have declined Date Screening Last Performed: _2003 Eye Disease Screening: Recommended today Dementia Risk: Low I have no recommendations Depression Screening: Negative I have no recommendations [email or web address] Not available 09/26/2023 12:18:50 Medicare wellnes s evaluation risk assessment stable. Follow-up for essential hypertension -hyperlipidemia -GERD and obesity class two all clinically stable. Will draw blood in the form of a CBC, CMP, lipid, thyroid and vitamin-D level. Continue on current Rx refuses all immunizations as well as other screening studies at this time. Will continue on current Rx follow-up in six months. Portions of the record may have been created with voice recognition software. Occasional wrong-word or [id number]-[id number] substitutions may have occurred due to the inherent limitations of voice recognition software. Read the chart carefully and recognize, using context, where substitutions have occurred. [email or web address] Not available 09/26/2023 12:22:48 04/02/2024 [id number] Essential hypertension, hyperlipidemia, GERD, renal calculi with some very atypical abdominal pain at this time. As well as obesity class one. Will check blood work consisting of CBC, CMP, lipid, thyroid, urinalysis with reflex to culture as well as a CT scan of the abdomen renal stone protocol. Continue on current Rx follow-up in six months CT scan of abdomen and pelvis renal stone protocol at [facility] Next Appointment: 6 Months Approximate Date: 09/29/2024 Portions of the record may have been created with voice recognition software. Occasional wrong-word or [id number] substitutions may have occurred due to the inherent limitations of voice recognition software. Read the chart carefully and recognize, using context, where substitutions have occurred. [email or web address] Not available 04/02/2024 11:26:16 10/08/2024 [id number] dementia rating scale-2* [email or web address] Not available 10/08/2024 12:52:38 alcohol misuse* [email or web address] Not available 10/08/2024 12:52:38 depression screening* Not available 10/08/2024 12:52:38 multi-dimensiona l health assessment questionnaire* [email or web address] Not available 10/08/2024 12:52:38 Personalized [facility] Plan and Screening Recommendations Advance Directives - Do you have one? No Advance Directives - Do we have your advance directive on file in your health record? Primary Prevention/Interven tion (prevents or decreases the chance of common diseases from occurring) Smoking Risk: Non Smoker Alcohol Misuse Screening: Negative Weight: Overweight try to lose 10% of your body weight Physical activity: Need more exercise/physical activity Nutrition: Average Eat heart healthy diet Fall Risk (screened today): Low Vaccines Pneumococcal: No further needed Influenza: Your next one in the fall of this year Chronic Disease Risks Stroke: Intermediate Risk Active diagnosis, Continue current treatment plan Heart Attack: Intermediate Risk Active diagnosis, Continue current treatment plan Clogging of the Arteries: Intermediate Risk Active diagnosis, Continue current treatment plan Diabetes: Low Risk Drastically limit sugar and products made with any type of flour (bread, pasta, cereal, cookies, crackers, etc.) Secondary Prevention/Interven tion (detects treatable diseases before they may cause symptoms, disability, or ) Breast Cancer Screening with mammogram: Recommended today, but you have declined Cervical/Uterine/Ov yariel Cancer Screening: No screening necessary Osteoporosis Screening: Recommended today, but you have declined Date Screening Last Performed: Colon Cancer Screening: Colonoscopy Recommended today, but you have declined Date Screening Last Performed: ___2004___ Eye Disease Screening: Your next exam in: goes every 2 yrs Dementia Risk: Low I have no recommendations Depression Screening: Negative I have no recommendations [email or web address] Not available 10/08/2024 12:36:32 Medicare wellnes s evaluation risk assessment stable. Refusing mammography, colon screen as well as bone density scan. States that she has had a Prevnar 20 as well as a COVID booster and influenza immunization. No interval complaints any new problems otherwise. Will check blood work consisting of CBC, CMP, lipid, thyroid and hemoglobin A1c. Will also check a vitamin-D level. Will continue on current Rx follow-up in six months Follow Up: 6 Months Approximate Date: 04/06/2025 Portions of the record may have been created with voice recognition software. Occasional wrong-word or [id number] substitutions may have occurred due to the inherent limitations of voice recognition software. Read the chart carefully and recognize, using context, where substitutions have occurred. Created: Nelson Dempsey M.D. 10.08.2024 11:52 AM [email or web address] Not available 10/08/2024 12:52:19 04/08/2025 [id number] Essential hypertension, hyperlipidemia, chronic obstructive lung disease and obesity class one all clinically stable. Will continue with current Rx check blood work consisting of CBC, CMP, lipid, thyroid, vitamin-D level. Is overdue for colonoscopy as well as mammogram. Will continue on current Rx follow-up in six months Additional Orders - Directives - Recommendations 1. Cologuard 2. Screening mammogram Additional Orders - Directives - Recommendations 1. Cologuard 2. Screening mammogram Follow Up: 6 Months Approximate Date: 10/05/2025 Portions of record are template driven. When necessary additional context will be provided. Additionally some portions have been created with voice recognition software. Occasional wrong-word or [id number] substitutions may have occurred due to the inherent limitations of voice recognition software. Read the chart carefully and recognize, using context, where substitutions may have occurred. Created: Nelson Dempsey M.D. 04.08.2025 11:13 AM [email or web address] Not available 04/08/2025 12:13:46 Reason for Referral None Reported. Results Created Date Observation Date Name Description Value Unit Range Abnormal Flag Note LastModifiedBy Organization Detail LastModifiedTime 03/27/20 24 03/27/2024 COLOG UARD cologuard result Cancel led - Order d not applic able Not Available [facility] (Cologuard Orders Only) [address], [place], [address], 03/27/2024 11:03:45 03/30/20 23 03/30/2023 COMPR EHENS DAVIE METAB OLIC PANEL sodium 142 mmol/ L 137-14 5 Not Available [facility] (Lab) [address] [place], [address], 03/30/2023 12:34:23 03/30/20 23 03/30/2023 COMPR EHENS DAVIE METAB OLIC PANEL potassium 3.9 mmol/ L 3.5-5. 1 Not Available [facility] (Lab) [address] [place], [address], 03/30/2023 12:34:23 03/30/20 23 03/30/2023 COMPR EHENS DAVIE METAB OLIC PANEL chloride 107 mmol/ L 98-107 Not Available [facility] (Lab) [address] [place], [address], 03/30/2023 12:34:23 03/30/20 23 03/30/2023 COMPR EHENS DAVIE METAB OLIC PANEL carbon dioxide 25 mmol/ L 22-30 Not Available [facility] (Lab) [address] [place], [address], 03/30/2023 12:34:23 03/30/20 23 03/30/2023 COMPR EHENS DAVIE METAB OLIC PANEL anion gap 13.9 mmol/ L 14-22 low Not Available [facility] (Lab) [address] [place], [address], 03/30/2023 12:34:23 03/30/20 23 03/30/2023 COMPR EHENS DAVIE METAB OLIC PANEL glucose 96 mg/dL 70-99 Not Available [facility] (Lab) [address] [place], [address], 03/30/2023 12:34:23 03/30/20 23 03/30/2023 COMPR EHENS DAVIE METAB OLIC PANEL BUN 9 mg/dL 8-19 Not Available [facility] (Lab) [address] [place], [address], 03/30/2023 12:34:23 03/30/20 23 03/30/2023 COMPR EHENS DAVIE METAB OLIC PANEL creatinine 0.72 mg/dL 0.66-1 .25 Not Available [facility] (Lab) [address] [place], [address], 03/30/2023 12:34:23 03/30/20 23 03/30/2023 COMPR EHENS DAVIE METAB OLIC PANEL GFR >60 Refer ence Range : [place] [facility] GFR Healt hy Adult : >60 mL/mi n/1.7 3 m2 Chron ic Kidne y Disea se: 15-60 mL/mi n/1.7 3 m2 Kidne y Failu re: <15/m L/min /1.73 m2 www.n iddk. nih.g ov The MDRD study equat ion has not been valid ated in child christy <18 years of age; pregn ant women ; the elder ly >85 years of age; or in some racia l or ethni c subgr oups, such as Hispa nics. Outsi de the valid ated randa eters , estim ated GFR is less accur ate, requi ring clini brian judgm ent on a case- by-ca se basis . Clini brian inter preta tion for other races and ages must be made by the clini mikayla. The MDRD study equat ion has not been valid ated for the evalu ation of serum creat inine relat ed to nutri miguel l statu s or medic ation usage . For perso ns <18 years of age, a pedia tric GFR calcu lator is avail able on the [facility] websi te: https ://sonya w.kid isac.o rg/pr ofess ional s/kdo qi/gf r_cal culat or Not Available [facility] (Lab) [address] [place], [address], 03/30/2023 12:34:23 03/30/20 23 03/30/2023 COMPR EHENS DAVIE METAB OLIC PANEL alkaline phosphatase 125 U/L 38-126 Not Available [facility] (Lab) [address] [place], [address], 03/30/2023 12:34:23 03/30/20 23 03/30/2023 COMPR EHENS DAVIE METAB OLIC PANEL alanine aminotransfe rase 18 U/L 0-35 Not Available [facility] (Lab) [address] [place], [address], 03/30/2023 12:34:23 03/30/20 23 03/30/2023 COMPR EHENS DAVIE METAB OLIC PANEL aspartate aminotransfe rase 26 U/L 15-37 Not Available [facility] (Lab) [address] [place], [address], 03/30/2023 12:34:23 03/30/20 23 03/30/2023 COMPR EHENS DAVIE METAB OLIC PANEL bilirubin, total 0.30 mg/dL 0.20-1 .30 Not Available [facility] (Lab) [address] [place], [address], 03/30/2023 12:34:23 03/30/20 23 03/30/2023 COMPR EHENS DAVIE METAB OLIC PANEL calcium 9.1 mg/dL 8.4-10 .2 Not Available [facility] (Lab) [address] [place], [address], 03/30/2023 12:34:23 03/30/20 23 03/30/2023 COMPR EHENS DAVIE METAB OLIC PANEL total protein 7.3 g/dL 6.3-8. 2 Not Available [facility] (Lab) [address] [place], [address], 03/30/2023 12:34:23 03/30/20 23 03/30/2023 COMPR EHENS DAVIE METAB OLIC PANEL albumin 3.5 g/dL 3.0-4. 4 Not Available [facility] (Lab) [address] [place], [address], 03/30/2023 12:34:23 03/30/20 23 03/30/2023 COMPR EHENS DAVIE METAB OLIC PANEL globulin 3.8 g/dL 2.6-4. 2 Not Available [facility] (Lab) [address] [place], [address], 03/30/2023 12:34:23 03/30/20 23 03/30/2023 COMPR EHENS DAVIE METAB OLIC PANEL A/G ratio 0.9 ratio 1.0-2. 0 low Not Available [facility] (Lab) [address] [place], [address], 03/30/2023 12:34:23 03/30/20 23 03/30/2023 LIPID PANEL cholesterol 147 mg/dL 140-19 9 [facility] COREY NSUS RECOM MENDA TION FOR IDA STERO L: ADULT CHILD LOW RISK: <200 <170 BORDE RLINE : <200- 239 ----- HIGH RISK: >240 >200 Not Available [facility] (Lab) [address] [place], [address], 03/30/2023 12:34:25 03/30/20 23 03/30/2023 LIPID PANEL triglyceride s 133 mg/dL 0-150 NIH COREY NSUS REPOR T RECOM MENDA TION FOR TRIGL YCERI [place]: ADULT CHILD LOW RISK: <150 ----- BODER LINE: 150-1 99 ----- HIGH RISK: >200 ----- Not Available [facility] (Lab) [address] [place], [address], 03/30/2023 12:34:25 03/30/20 23 03/30/2023 LIPID PANEL HDL cholesterol 42 mg/dL 40- Not Available [facility] (Lab) [address] [place], [address], 03/30/2023 12:34:25 03/30/20 23 03/30/2023 LIPID PANEL LDL cholesterol, calculated 78 mg/dL 0-130 NIH COREY NSUS REPOR T RECOM MENDA TIONS FOR LDL: ADULT CHILD LOW RISK <130 <110 (OPTI MAL LDL) <100 ----- BORDE RLINE : 130-1 59 ----- HIGH RISK: >160 >130 A TRIGL YCERI DE RESUL T >400 INVAL IDATE S THE CALCU LATIO N FOR LDL FRACT IONAT ION - THE LDL RESUL T WILL NOT BE REPOR SAMMY. Not Available [facility] (Lab) [address] [place], [address], 03/30/2023 12:34:25 03/30/20 23 03/30/2023 CBC/C OMPLE TE BLD COUNT W/DIF F white blood cells 6.1 x10'3 /uL 4.2-10 .8 Not Available [facility] (Lab) [address] [place], [address], 03/30/2023 12:41:01 03/30/20 23 03/30/2023 CBC/C OMPLE TE BLD COUNT W/DIF F red blood cells 3.94 x10'6 /uL 3.80-5 .20 Not Available [facility] (Lab) [address] [facility] [place], [address], 03/30/2023 12:41:01 03/30/20 23 03/30/2023 CBC/C OMPLE TE BLD COUNT W/DIF F hemoglobin 12.2 g/dL 12.0-1 5.6 Not Available [facility] (Lab) [address] [place], [address], 03/30/2023 12:41:01 03/30/20 23 03/30/2023 CBC/C OMPLE TE BLD COUNT W/DIF F hematocrit 38.1 % 35.7-4 5.7 Not Available [facility] (Lab) [address] [place], [address], 03/30/2023 12:41:01 03/30/20 23 03/30/2023 CBC/C OMPLE TE BLD COUNT W/DIF F mean red cell volume 96.7 fL 82.0-9 9.0 Not Available [facility] (Lab) [address] [place], [address], 03/30/2023 12:41:01 03/30/20 23 03/30/2023 CBC/C OMPLE TE BLD COUNT W/DIF F mean red cell hemoglobin 31.0 pg 27.0-3 3.0 Not Available [facility] (Lab) [address] [place], [address], 03/30/2023 12:41:01 03/30/20 23 03/30/2023 CBC/C OMPLE TE BLD COUNT W/DIF F mean RBC HGB concentratio n 32.0 g/dL 31.0-3 6.0 Not Available [facility] (Lab) [address] [place], [address], 03/30/2023 12:41:01 03/30/20 23 03/30/2023 CBC/C OMPLE TE BLD COUNT W/DIF F red cell distribution width 13.5 % 11.8-1 5.5 Not Available [facility] (Lab) [address] [place], [address], 03/30/2023 12:41:01 03/30/20 23 03/30/2023 CBC/C OMPLE TE BLD COUNT W/DIF F platelets 308 x10'3 /uL 150-40 0 Not Available [facility] (Lab) [address] [place], [address], 03/30/2023 12:41:01 03/30/20 23 03/30/2023 CBC/C OMPLE TE BLD COUNT W/DIF F mean platelet volume 11.6 fL 9.0-12 .4 Not Available [facility] (Lab) [address] [place], [address], 03/30/2023 12:41:01 03/30/20 23 03/30/2023 CBC/C OMPLE TE BLD COUNT W/DIF F neutrophils 56.8 % 39.0-7 2.0 Not Available [facility] (Lab) [address] [place], [address], 03/30/2023 12:41:01 03/30/20 23 03/30/2023 CBC/C OMPLE TE BLD COUNT W/DIF F lymphocytes 26.3 % 16.0-4 7.0 Not Available [facility] (Lab) [address] [place], [address], 03/30/2023 12:41:01 03/30/20 23 03/30/2023 CBC/C OMPLE TE BLD COUNT W/DIF F monocytes 8.1 % 5.0-12 .0 Not Available [facility] (Lab) [address] [place], [address], 03/30/2023 12:41:01 03/30/20 23 03/30/2023 CBC/C OMPLE TE BLD COUNT W/DIF F eosinophils 7.9 % 1.0-7. 0 high Not Available [facility] (Lab) [address] [place], [address], 03/30/2023 12:41:01 03/30/20 23 03/30/2023 CBC/C OMPLE TE BLD COUNT W/DIF F basophils 0.7 % 0.0-2. 0 Not Available [facility] (Lab) [address] [place], [address], 03/30/2023 12:41:01 03/30/20 23 03/30/2023 CBC/C OMPLE TE BLD COUNT W/DIF F immature granulocytes 0.2 % 0.00-0 .50 Not Available [facility] (Lab) [address] [place], [address], 03/30/2023 12:41:01 03/30/20 23 03/30/2023 CBC/C OMPLE TE BLD COUNT W/DIF F neutrophils, absolute count 3.46 x10'3 /uL 1.5-8. 0 Not Available [facility] (Lab) [address] [place], [address], 03/30/2023 12:41:01 03/30/20 23 03/30/2023 CBC/C OMPLE TE BLD COUNT W/DIF F lymphocytes, absolute count 1.60 x10'3 /uL 1.07-3 .43 Not Available [facility] (Lab) [address] [place], [address], 03/30/2023 12:41:01 03/30/2003/30/2023 CBC/C OMPLE TE BLD COUNT W/DIF F monocytes, absolute count 0.49 x10'3 /uL 0.29-0 .99 Not Available [facility] (Lab) [address] [place], [address], 03/30/2023 12:41:01 03/30/20 23 03/30/2023 CBC/C OMPLE TE BLD COUNT W/DIF F eosinophils, absolute count 0.48 x10'3 /uL 0.02-0 .53 Not Available [facility] (Lab) [address] [place], [address], 03/30/2023 12:41:01 03/30/20 23 03/30/2023 CBC/C OMPLE TE BLD COUNT W/DIF F basophils, absolute count 0.04 x10'3 /uL 0.01-0 .08 Not Available [facility] (Lab) [address] [place], [address], 03/30/2023 12:41:01 03/30/20 23 03/30/2023 CBC/C OMPLE TE BLD COUNT W/DIF F immature granulocytes ,absolute 0.01 x10'3 /uL 0.00-0 .05 Not Available [facility] (Lab) [address] [place], [address], 03/30/2023 12:41:01 03/30/20 23 03/30/2023 CBC/C OMPLE TE BLD COUNT W/DIF F nucleated red blood cells 0.0 % -0 Not Available [facility] (Lab) [address] [place], [address], 03/30/2023 12:41:01 03/30/20 23 03/30/2023 CBC/C OMPLE TE BLD COUNT W/DIF F NRBC# 0.00 x10'3 /uL Not Available [facility] (Lab) [address] [place], [address], 03/30/2023 12:41:01 10/04/20 23 10/04/2023 CBC/C OMPLE TE BLD COUNT W/DIF F white blood cells 6.8 x10'3 /uL 4.2-10 .8 Not Available [facility] (Lab) [address] [place], [address], 10/04/2023 10:21:32 10/04/20 23 10/04/2023 CBC/C OMPLE TE BLD COUNT W/DIF F red blood cells 4.32 x10'6 /uL 3.80-5 .20 Not Available [facility] (Lab) [address] [place], [address], 10/04/2023 10:21:32 10/04/20 23 10/04/2023 CBC/C OMPLE TE BLD COUNT W/DIF F hemoglobin 13.3 g/dL 12.0-1 5.6 Not Available [facility] (Lab) [address] [place], [address], 10/04/2023 10:21:32 10/04/20 23 10/04/2023 CBC/C OMPLE TE BLD COUNT W/DIF F hematocrit 42.8 % 35.7-4 5.7 Not Available [facility] (Lab) [address] [place], [address], 10/04/2023 10:21:32 10/04/20 23 10/04/2023 CBC/C OMPLE TE BLD COUNT W/DIF F mean red cell volume 99.1 fL 82.0-9 9.0 high Not Available [facility] (Lab) [address] [place], [address], 10/04/2023 10:21:32 10/04/20 23 10/04/2023 CBC/C OMPLE TE BLD COUNT W/DIF F mean red cell hemoglobin 30.8 pg 27.0-3 3.0 Not Available [facility] (Lab) [address] [place], [address], 10/04/2023 10:21:32 10/04/20 23 10/04/2023 CBC/C OMPLE TE BLD COUNT W/DIF F mean RBC HGB concentratio n 31.1 g/dL 31.0-3 6.0 Not Available [facility] (Lab) [address] [facility] [place], [address], 10/04/2023 10:21:32 10/04/20 23 10/04/2023 CBC/C OMPLE TE BLD COUNT W/DIF F red cell distribution width 13.3 % 11.8-1 5.5 Not Available [facility] (Lab) [address] [place], [address], 10/04/2023 10:21:32 10/04/20 23 10/04/2023 CBC/C OMPLE TE BLD COUNT W/DIF F platelets 276 x10'3 /uL 150-40 0 Not Available [facility] (Lab) [address] [place], [address], 10/04/2023 10:21:32 10/04/20 23 10/04/2023 CBC/C OMPLE TE BLD COUNT W/DIF F mean platelet volume 11.8 fL 9.0-12 .4 Not Available [facility] (Lab) [address] [place], [address], 10/04/2023 10:21:32 10/04/20 23 10/04/2023 CBC/C OMPLE TE BLD COUNT W/DIF F neutrophils 62.0 % 39.0-7 2.0 Not Available [facility] (Lab) [address] [place], [address], 10/04/2023 10:21:32 10/04/20 23 10/04/2023 CBC/C OMPLE TE BLD COUNT W/DIF F lymphocytes 26.9 % 16.0-4 7.0 Not Available [facility] (Lab) [address] [place], [address], 10/04/2023 10:21:32 10/04/20 23 10/04/2023 CBC/C OMPLE TE BLD COUNT W/DIF F monocytes 6.4 % 5.0-12 .0 Not Available [facility] (Lab) [address] [place], [address], 10/04/2023 10:21:32 10/04/20 23 10/04/2023 CBC/C OMPLE TE BLD COUNT W/DIF F eosinophils 3.8 % 1.0-7. 0 Not Available [facility] (Lab) [address] [place], [address], 10/04/2023 10:21:32 10/04/20 23 10/04/2023 CBC/C OMPLE TE BLD COUNT W/DIF F basophils 0.6 % 0.0-2. 0 Not Available [facility] (Lab) [address] [place], [address], 10/04/2023 10:21:32 10/04/20 23 10/04/2023 CBC/C OMPLE TE BLD COUNT W/DIF F immature granulocytes 0.3 % 0.00-0 .50 Not Available [facility] (Lab) [address] [place], [address], 10/04/2023 10:21:32 10/04/20 23 10/04/2023 CBC/C OMPLE TE BLD COUNT W/DIF F neutrophils, absolute count 4.19 x10'3 /uL 1.5-8. 0 Not Available [facility] (Lab) [address] [place], [address], 10/04/2023 10:21:32 10/04/20 23 10/04/2023 CBC/C OMPLE TE BLD COUNT W/DIF F lymphocytes, absolute count 1.82 x10'3 /uL 1.07-3 .43 Not Available [facility] (Lab) [address] [place], [address], 10/04/2023 10:21:32 10/04/20 23 10/04/2023 CBC/C OMPLE TE BLD COUNT W/DIF F monocytes, absolute count 0.43 x10'3 /uL 0.29-0 .99 Not Available [facility] (Lab) [address] [place], [address], 10/04/2023 10:21:32 10/04/20 23 10/04/2023 CBC/C OMPLE TE BLD COUNT W/DIF F eosinophils, absolute count 0.26 x10'3 /uL 0.02-0 .53 Not Available [facility] (Lab) [address] [place], [address], 10/04/2023 10:21:32 10/04/20 23 10/04/2023 CBC/C OMPLE TE BLD COUNT W/DIF F basophils, absolute count 0.04 x10'3 /uL 0.01-0 .08 Not Available [facility] (Lab) [address] [place], [address], 10/04/2023 10:21:32 10/04/20 23 10/04/2023 CBC/C OMPLE TE BLD COUNT W/DIF F immature granulocytes ,absolute 0.02 x10'3 /uL 0.00-0 .05 Not Available [facility] (Lab) [address] [place], [address], 10/04/2023 10:21:32 10/04/20 23 10/04/2023 CBC/C OMPLE TE BLD COUNT W/DIF F nucleated red blood cells 0.0 % -0 Not Available [facility] (Lab) [address] [place], [address], 10/04/2023 10:21:32 10/04/20 23 10/04/2023 CBC/C OMPLE TE BLD COUNT W/DIF F NRBC# 0.00 x10'3 /uL Not Available [facility] (Lab) [address] [place], [address], 10/04/2023 10:21:32 10/04/20 23 10/04/2023 LIPID PANEL cholesterol 185 mg/dL 140-19 9 NIH COREY NSUS RECOM MENDA TION FOR IDA STERO L: ADULT CHILD LOW RISK: <200 <170 BORDE RLINE : <200- 239 ----- HIGH RISK: >240 >200 Not Available [facility] (Lab) [address] [place], [address], 10/04/2023 11:05:40 10/04/20 23 10/04/2023 LIPID PANEL triglyceride s 162 mg/dL 0-150 high NIH COREY NSUS REPOR T RECOM MENDA TION FOR TRIGL YCERI [place]: ADULT CHILD LOW RISK: <150 ----- BODER LINE: 150-1 99 ----- HIGH RISK: >200 ----- Not Available [facility] (Lab) [address] [place], [address], 10/04/2023 11:05:40 10/04/20 23 10/04/2023 LIPID PANEL HDL cholesterol 37 mg/dL 40- low Not Available [facility] (Lab) [address] [place], [address], 10/04/2023 11:05:40 10/04/20 23 10/04/2023 LIPID PANEL LDL cholesterol, calculated 116 mg/dL 0-130 NIH COREY NSUS REPOR T RECOM MENDA TIONS FOR LDL: ADULT CHILD LOW RISK <130 <110 (OPTI MAL LDL) <100 ----- BORDE RLINE : 130-1 59 ----- HIGH RISK: >160 >130 A TRIGL YCERI DE RESUL T >400 INVAL IDATE S THE CALCU LATIO N FOR LDL FRACT IONAT ION - THE LDL RESUL T WILL NOT BE REPOR SAMMY. Not Available [facility] (Lab) [address] [place], [address], 10/04/2023 11:05:40 10/04/20 23 10/04/2023 COMPR EHENS DAVIE METAB OLIC PANEL sodium 143 mmol/ L 137-14 5 Not Available [facility] (Lab) [address] [place], [address], 10/04/2023 11:05:50 10/04/20 23 10/04/2023 COMPR EHENS DAVIE METAB OLIC PANEL potassium 3.5 mmol/ L 3.5-5. 1 Not Available [facility] (Lab) [address] [place], [address], 10/04/2023 11:05:50 10/04/20 23 10/04/2023 COMPR EHENS DAVIE METAB OLIC PANEL chloride 107 mmol/ L 98-107 Not Available [facility] (Lab) [address] [place], [address], 10/04/2023 11:05:50 10/04/20 23 10/04/2023 COMPR EHENS DAVIE METAB OLIC PANEL carbon dioxide 30 mmol/ L 22-30 Not Available [facility] (Lab) [address] [place], [address], 10/04/2023 11:05:50 10/04/20 23 10/04/2023 COMPR EHENS DAVIE METAB OLIC PANEL anion gap 9.5 mmol/ L 14-22 low Not Available [facility] (Lab) [address] [place], [address], 10/04/2023 11:05:50 10/04/20 23 10/04/2023 COMPR EHENS DAVIE METAB OLIC PANEL glucose 111 mg/dL 70-99 high Not Available [facility] (Lab) [address] [place], [address], 10/04/2023 11:05:50 10/04/20 23 10/04/2023 COMPR EHENS DAVIE METAB OLIC PANEL BUN 10 mg/dL 8-19 Not Available [facility] (Lab) [address] [place], [address], 10/04/2023 11:05:50 10/04/20 23 10/04/2023 COMPR EHENS DAVIE METAB OLIC PANEL creatinine 0.83 mg/dL 0.66-1 .25 Not Available [facility] (Lab) [address] [place], [address], 10/04/2023 11:05:50 10/04/20 23 10/04/2023 COMPR EHENS DAVIE METAB OLIC PANEL GFR >60 Refer ence Range : [place] ge GFR Healt hy Adult : >60 mL/mi n/1.7 3 m2 Chron ic Kidne y Disea se: 15-60 mL/mi n/1.7 3 m2 Kidne y Failu re: <15/m L/min /1.73 m2 www.n iddk. nih.g ov The MDRD study equat ion has not been valid ated in child christy <18 years of age; pregn ant women ; the elder ly >85 years of age; or in some racia l or ethni c subgr oups, such as [facility] nics. Outsi de the valid ated randa eters , estim ated GFR is less accur ate, requi ring clini brian judgm ent on a case- by-ca se basis . Clini brian inter preta tion for other races and ages must be made by the clini mikayla. The MDRD study equat ion has not been valid ated for the evalu ation of serum creat inine relat ed to nutri miguel l statu s or medic ation usage . For perso ns <18 years of age, a pedia tric GFR calcu lator is avail able on the F websi te: https :[email or web address] chau.asha echevarria/pr ofess ional s/kdo qi/gf r_cal culat or Not Available [facility] (Lab) [address] [place], [address], 10/04/2023 11:05:50 10/04/20 23 10/04/2023 COMPR EHENS DAVIE METAB OLIC PANEL alkaline phosphatase 153 U/L 38-126 high Not Available [facility] (Lab) [address] [place], [address], 10/04/2023 11:05:50 10/04/20 23 10/04/2023 COMPR EHENS DAVIE METAB OLIC PANEL alanine aminotransfe rase 13 U/L 0-35 Not Available [facility] (Lab) [address] [place], [address], 10/04/2023 11:05:50 10/04/20 23 10/04/2023 COMPR EHENS DAVIE METAB OLIC PANEL aspartate aminotransfe rase 24 U/L 15-37 Not Available [facility] (Lab) [address] [place], [address], 10/04/2023 11:05:50 10/04/20 23 10/04/2023 COMPR EHENS DAVIE METAB OLIC PANEL bilirubin, total 0.40 mg/dL 0.20-1 .30 Not Available [facility] (Lab) [address] [place], [address], 10/04/2023 11:05:50 10/04/20 23 10/04/2023 COMPR EHENS DAVIE METAB OLIC PANEL calcium 10.0 mg/dL 8.4-10 .2 Not Available [facility] (Lab) [address] [place], [address], 10/04/2023 11:05:50 10/04/20 23 10/04/2023 COMPR EHENS DAVIE METAB OLIC PANEL total protein 9.2 g/dL 6.3-8. 2 high Not Available [facility] (Lab) [address] [place], [address], 10/04/2023 11:05:50 10/04/20 23 10/04/2023 COMPR EHENS DAVIE METAB OLIC PANEL albumin 4.3 g/dL 3.0-4. 4 Not Available [facility] (Lab) [address] [place], [address], 10/04/2023 11:05:50 10/04/20 23 10/04/2023 COMPR EHENS DAVIE METAB OLIC PANEL globulin 4.9 g/dL 2.6-4. 2 high Not Available [facility] (Lab) [address] [place], [address], 10/04/2023 11:05:50 10/04/20 23 10/04/2023 COMPR EHENS DAVIE METAB OLIC PANEL A/G ratio 0.9 ratio 1.0-2. 0 low Not Available [facility] (Lab) [address] [place], [address], 10/04/2023 11:05:50 10/04/20 23 10/04/2023 VITAM IN D 25-HY DROXY [id number] 36.1 NG/mL 30-100 Vitam in D Statu s: Defic ient: <20 ng/mL Insuf ficie nt: 20-29 ng/mL Suffi cient : 30-10 0 ng/mL Not Available [facility] (Lab) [address] [place], [address], 10/04/2023 12:07:04 10/04/2010/04/2023 T4 FREE free T4 0.99 NG/dL 0.78-2 .19 Not Available [facility] (Lab) [address] [place], [address], 10/04/2023 13:39:29 12/10/12 2310/04/2023 TSH thyroid-stim ulating hormone 1.700 uIU/m L 0.465- 4.680 Not Available [facility] (Lab) [address] [place], [address], 10/04/2023 13:51:53 04/04/20 24 04/04/2024 LIPID PANEL cholesterol 151 mg/dL 140-19 9 NIH COREY NSUS RECOM MENDA TION FOR IDA STERO L: ADULT CHILD LOW RISK: <200 <170 BORDE RLINE : <200- 239 ----- HIGH RISK: >240 >200 Not Available [facility] (Lab) [address] [place], [address], 04/04/2024 11:06:07 04/04/20 24 04/04/2024 LIPID PANEL triglyceride s 121 mg/dL 0-150 NIH COREY NSUS REPOR T RECOM MENDA TION FOR TRIGL YCERI [place]: ADULT CHILD LOW RISK: <150 ----- BODER LINE: 150-1 99 ----- HIGH RISK: >200 ----- Not Available [facility] (Lab) [address] [place], [address], 04/04/2024 11:06:07 04/04/20 24 04/04/2024 LIPID PANEL HDL cholesterol 40 mg/dL 40- Not Available [facility] (Lab) [address] [place], [address], 04/04/2024 11:06:07 04/04/20 24 04/04/2024 LIPID PANEL LDL cholesterol, calculated 87 mg/dL 0-130 NIH COREY NSUS REPOR T RECOM MENDA TIONS FOR LDL: ADULT CHILD LOW RISK <130 <110 (OPTI MAL LDL) <100 ----- BORDE RLINE : 130-1 59 ----- HIGH RISK: >160 >130 A TRIGL YCERI DE RESUL T >400 INVAL IDATE S THE CALCU LATIO N FOR LDL FRACT IONAT ION - THE LDL RESUL T WILL NOT BE REPOR SAMMY. Not Available [facility] (Lab) [address] [facility] [place], [address], 04/04/2024 11:06:07 04/04/20 24 04/04/2024 COMPR EHENS DAVIE METAB OLIC PANEL sodium 143 mmol/ L 137-14 5 Not Available [facility] (Lab) [address] [place], [address], 04/04/2024 11:06:11 04/04/20 24 04/04/2024 COMPR EHENS DAVIE METAB OLIC PANEL potassium 3.9 mmol/ L 3.5-5. 1 Not Available [facility] (Lab) [address] [facility] [place], [address], 04/04/2024 11:06:11 04/04/20 24 04/04/2024 COMPR EHENS DAVIE METAB OLIC PANEL chloride 109 mmol/ L 98-107 high Not Available [facility] (Lab) [address] [place], [address], 04/04/2024 11:06:11 04/04/20 24 04/04/2024 COMPR EHENS DAVIE METAB OLIC PANEL carbon dioxide 30 mmol/ L 22-30 Not Available [facility] (Lab) [address] [place], [address], 04/04/2024 11:06:11 04/04/20 24 04/04/2024 COMPR EHENS DAVIE METAB OLIC PANEL anion gap 7.9 mmol/ L 14-22 low Not Available [facility] (Lab) [address] [place], [address], 04/04/2024 11:06:11 04/04/20 24 04/04/2024 COMPR EHENS DAVIE METAB OLIC PANEL glucose 95 mg/dL 70-99 Not Available [facility] (Lab) [address] [place], [address], 04/04/2024 11:06:11 04/04/20 24 04/04/2024 COMPR EHENS DAVIE METAB OLIC PANEL BUN 8 mg/dL 8-19 Not Available [facility] (Lab) [address] [place], [address], 04/04/2024 11:06:11 04/04/20 24 04/04/2024 COMPR EHENS DAVIE METAB OLIC PANEL creatinine 0.96 mg/dL 0.66-1 .25 Not Available [facility] (Lab) [address] [place], [address], 04/04/2024 11:06:11 04/04/20 24 04/04/2024 COMPR EHENS DAVIE METAB OLIC PANEL GFR >60 Refer ence Range : [place] GFR Healt hy Adult : >60 mL/mi n/1.7 3 m2 Chron ic Kidne y Disea se: 15-60 mL/mi n/1.7 3 m2 Kidne y Failu re: <15/m L/min /1.73 m2 www.n iddk. nih.g ov The MDRD study equat ion has not been valid ated in child christy <18 years of age; pregn ant women ; the elder ly >85 years of age; or in some racia l or ethni c subgr oups, such as [facility] nics. Outsi de the valid ated randa eters , estim ated GFR is less accur ate, requi ring clini brian judgm ent on a case- by-ca se basis . Clini brian inter preta tion for other races and ages must be made by the clini mikayla. The MDRD study equat ion has not been valid ated for the evalu ation of serum creat inine relat ed to nutri miguel l statu s or medic ation usage . For perso ns <18 years of age, a pedia tric GFR calcu lator is avail able on the F websi te: https :[email or web address] nelson.[email or web address] chau.o swathi/pr ofess ional s/kdo qi/gf r_cal culat or Not Available [facility] (Lab) [address] [place], [address], 04/04/2024 11:06:11 04/04/20 24 04/04/2024 COMPR EHENS DAVIE METAB OLIC PANEL alkaline phosphatase 136 U/L 38-126 high Not Available [facility] (Lab) [address] [place], [address], 04/04/2024 11:06:11 04/04/20 24 04/04/2024 COMPR EHENS DAVIE METAB OLIC PANEL alanine aminotransfe rase 15 U/L 0-35 Not Available [facility] (Lab) [address] [place], [address], 04/04/2024 11:06:11 04/04/20 24 04/04/2024 COMPR EHENS DAVIE METAB OLIC PANEL aspartate aminotransfe rase 25 U/L 15-37 Not Available [facility] (Lab) [address] [place], [address], 04/04/2024 11:06:11 04/04/20 24 04/04/2024 COMPR EHENS DAVIE METAB OLIC PANEL bilirubin, total 0.50 mg/dL 0.20-1 .30 Not Available [facility] (Lab) [address] [place], [address], 04/04/2024 11:06:11 04/04/20 24 04/04/2024 COMPR EHENS DAVIE METAB OLIC PANEL calcium 9.1 mg/dL 8.4-10 .2 Not Available [facility] (Lab) [address] [place], [address], 04/04/2024 11:06:11 04/04/20 24 04/04/2024 COMPR EHENS DAVIE METAB OLIC PANEL total protein 7.4 g/dL 6.3-8. 2 Not Available [facility] (Lab) [address] [place], [address], 04/04/2024 11:06:11 04/04/20 24 04/04/2024 COMPR EHENS DAVIE METAB OLIC PANEL albumin 3.7 g/dL 3.0-4. 4 Not Available [facility] (Lab) [address] [place], [address], 04/04/2024 11:06:11 04/04/20 24 04/04/2024 COMPR EHENS DAVIE METAB OLIC PANEL globulin 3.7 g/dL 2.6-4. 2 Not Available [facility] (Lab) [address] [place], [address], 04/04/2024 11:06:11 04/04/20 24 04/04/2024 COMPR EHENS DAVIE METAB OLIC PANEL A/G ratio 1.0 ratio 1.0-2. 0 Not Available [facility] (Lab) [address] [place], [address], 04/04/2024 11:06:11 04/04/20 24 04/04/2024 URINA LYSIS COMPL ETE/I RIS W/RFX color YELLOW Not Available [facility] (Lab) [address] [place], [address], 04/04/2024 11:18:34 04/04/20 24 04/04/2024 URINA LYSIS COMPL ETE/I RIS W/RFX appear EXTRA TURBID abnormal Not Available [facility] (Lab) [address] [place], [address], 04/04/2024 11:18:34 04/04/20 24 04/04/2024 URINA LYSIS COMPL ETE/I RIS W/RFX specific gravity 1.020 1.001- 1.030 Not Available [facility] (Lab) [address] [place], [address], 04/04/2024 11:18:34 04/04/20 24 04/04/2024 URINA LYSIS COMPL ETE/I RIS W/RFX pH 5.5 pH_un its 5.0-9. 0 Not Available [facility] (Lab) [address] [place], [address], 04/04/2024 11:18:34 04/04/20 24 04/04/2024 URINA LYSIS COMPL ETE/I RIS W/RFX leukocytes >/=500 andre/u L negati ve- abnormal Not Available [facility] (Lab) [address] [place], [address], 04/04/2024 11:18:34 04/04/20 24 04/04/2024 URINA LYSIS COMPL ETE/I RIS W/RFX nitrite NEGATI VE negati ve- Not Available [facility] (Lab) [address] [place], [address], 04/04/2024 11:18:34 04/04/20 24 04/04/2024 URINA LYSIS COMPL ETE/I RIS W/RFX protein 50 mg/dL negati ve- abnormal Not Available [facility] (Lab) [address] [place], [address], 04/04/2024 11:18:34 04/04/20 24 04/04/2024 URINA LYSIS COMPL ETE/I RIS W/RFX glucose NORMAL mg/dL normal - Not Available [facility] (Lab) [address] [place], [address], 04/04/2024 11:18:34 04/04/20 24 04/04/2024 URINA LYSIS COMPL ETE/I RIS W/RFX ketones NEGATI VE mg/dL negati ve- Not Available [facility] (Lab) [address] [place], [address], 04/04/2024 11:18:34 04/04/20 24 04/04/2024 URINA LYSIS COMPL ETE/I RIS W/RFX urobilinogen NORMAL mg/dL normal - Not Available [facility] (Lab) [address] [place], [address], 04/04/2024 11:18:34 04/04/20 24 04/04/2024 URINA LYSIS COMPL ETE/I RIS W/RFX bilirubin NEGATI VE mg/dL negati ve- Not Available [facility] (Lab) [address] [place], [address], 04/04/2024 11:18:34 04/04/20 24 04/04/2024 URINA LYSIS COMPL ETE/I RIS W/RFX blood NEGATI VE mg/dL negati ve- Not Available [facility] (Lab) [address] [place], [address], 04/04/2024 11:18:34 04/04/20 24 04/04/2024 URINA LYSIS COMPL ETE/I RIS W/RFX white blood cells 0-8 /i??h pfi?? 0-8 Not Available [facility] (Lab) [address] [place], [address], 04/04/2024 11:18:34 04/04/20 24 04/04/2024 URINA LYSIS COMPL ETE/I RIS W/RFX red blood cells 0-4 /i??h pfi?? 0-4 Not Available [facility] (Lab) [address] [place], [address], 04/04/2024 11:18:34 04/04/20 24 04/04/2024 URINA LYSIS COMPL ETE/I RIS W/RFX bacteria OCCASI ONAL abnormal Not Available [facility] (Lab) [address] [place], [address], 04/04/2024 11:18:34 04/04/20 24 04/04/2024 URINA LYSIS COMPL ETE/I RIS W/RFX squamous epithelial PACKED FIELD /i??l pfi?? abnormal Not Available [facility] (Lab) [address] [place], [address], 04/04/2024 11:18:34 04/04/20 24 04/04/2024 URINA LYSIS COMPL ETE/I RIS W/RFX amorphous crystal OCCASI ONAL /i??h pfi?? abnormal Not Available [facility] (Lab) [address] [place], [address], 04/04/2024 11:18:34 04/04/20 24 04/04/2024 T4 FREE free T4 1.03 NG/dL 0.78-2 .19 Not Available [facility] (Lab) [address] [place], [address], 04/04/2024 11:29:53 04/04/20 24 04/04/2024 TSH thyroid-stim ulating hormone 1.910 uIU/m L 0.465- 4.680 Not Available [facility] (Lab) [address] [place], [address], 04/04/2024 11:47:01 04/04/20 24 04/04/2024 CBC/C OMPLE TE BLD COUNT W/DIF F white blood cells 5.7 x10'3 /uL 4.2-10 .8 Not Available [facility] (Lab) [address] [place], [address], 04/04/2024 12:26:29 04/04/20 24 04/04/2024 CBC/C OMPLE TE BLD COUNT W/DIF F red blood cells 4.07 x10'6 /uL 3.80-5 .20 Not Available [facility] (Lab) [address] [place], [address], 04/04/2024 12:26:29 04/04/20 24 04/04/2024 CBC/C OMPLE TE BLD COUNT W/DIF F hemoglobin 12.5 g/dL 12.0-1 5.6 Not Available [facility] (Lab) [address] [place], [address], 04/04/2024 12:26:29 04/04/20 24 04/04/2024 CBC/C OMPLE TE BLD COUNT W/DIF F hematocrit 38.9 % 35.7-4 5.7 Not Available [facility] (Lab) [address] [facility] [place], [address], 04/04/2024 12:26:29 04/04/20 24 04/04/2024 CBC/C OMPLE TE BLD COUNT W/DIF F mean red cell volume 95.6 fL 82.0-9 9.0 Not Available [facility] (Lab) [address] [place], [address], 04/04/2024 12:26:29 04/04/20 24 04/04/2024 CBC/C OMPLE TE BLD COUNT W/DIF F mean red cell hemoglobin 30.7 pg 27.0-3 3.0 Not Available [facility] (Lab) [address] [place], [address], 04/04/2024 12:26:29 04/04/20 24 04/04/2024 CBC/C OMPLE TE BLD COUNT W/DIF F mean RBC HGB concentratio n 32.1 g/dL 31.0-3 6.0 Not Available [facility] (Lab) [address] [place], [address], 04/04/2024 12:26:29 04/04/20 24 04/04/2024 CBC/C OMPLE TE BLD COUNT W/DIF F red cell distribution width 13.1 % 11.8-1 5.5 Not Available [facility] (Lab) [address] [place], [address], 04/04/2024 12:26:29 04/04/20 24 04/04/2024 CBC/C OMPLE TE BLD COUNT W/DIF F platelets 313 x10'3 /uL 150-40 0 Not Available [facility] (Lab) [address] [place], [address], 04/04/2024 12:26:29 04/04/20 24 04/04/2024 CBC/C OMPLE TE BLD COUNT W/DIF F mean platelet volume 11.6 fL 9.0-12 .4 Not Available [facility] (Lab) [address] [place], [address], 04/04/2024 12:26:29 04/04/20 24 04/04/2024 CBC/C OMPLE TE BLD COUNT W/DIF F neutrophils 58.3 % 39.0-7 2.0 Not Available [facility] (Lab) [address] [place], [address], 04/04/2024 12:26:29 04/04/20 24 04/04/2024 CBC/C OMPLE TE BLD COUNT W/DIF F lymphocytes 30.9 % 16.0-4 7.0 Not Available [facility] (Lab) [address] [place], [address], 04/04/2024 12:26:29 04/04/20 24 04/04/2024 CBC/C OMPLE TE BLD COUNT W/DIF F monocytes 6.0 % 5.0-12 .0 Not Available [facility] (Lab) [address] [place], [address], 04/04/2024 12:26:29 04/04/20 24 04/04/2024 CBC/C OMPLE TE BLD COUNT W/DIF F eosinophils 4.2 % 1.0-7. 0 Not Available [facility] (Lab) [address] [place], [address], 04/04/2024 12:26:29 04/04/20 24 04/04/2024 CBC/C OMPLE TE BLD COUNT W/DIF F basophils 0.4 % 0.0-2. 0 Not Available [facility] (Lab) [address] [place], [address], 04/04/2024 12:26:29 04/04/20 24 04/04/2024 CBC/C OMPLE TE BLD COUNT W/DIF F immature granulocytes 0.2 % 0.00-0 .50 Not Available [facility] (Lab) [address] [place], [address], 04/04/2024 12:26:29 04/04/20 24 04/04/2024 CBC/C OMPLE TE BLD COUNT W/DIF F neutrophils, absolute count 3.30 x10'3 /uL 1.5-8. 0 Not Available [facility] (Lab) [address] [place], [address], 04/04/2024 12:26:29 04/04/20 24 04/04/2024 CBC/C OMPLE TE BLD COUNT W/DIF F lymphocytes, absolute count 1.75 x10'3 /uL 1.07-3 .43 Not Available [facility] (Lab) [address] [place], [address], 04/04/2024 12:26:29 04/04/20 24 04/04/2024 CBC/C OMPLE TE BLD COUNT W/DIF F monocytes, absolute count 0.34 x10'3 /uL 0.29-0 .99 Not Available [facility] (Lab) [address] [place], [address], 04/04/2024 12:26:29 04/04/20 24 04/04/2024 CBC/C OMPLE TE BLD COUNT W/DIF F eosinophils, absolute count 0.24 x10'3 /uL 0.02-0 .53 Not Available [facility] (Lab) [address] [place], [address], 04/04/2024 12:26:29 04/04/20 24 04/04/2024 CBC/C OMPLE TE BLD COUNT W/DIF F basophils, absolute count 0.02 x10'3 /uL 0.01-0 .08 Not Available [facility] (Lab) [address] [place], [address], 04/04/2024 12:26:29 04/04/20 24 04/04/2024 CBC/C OMPLE TE BLD COUNT W/DIF F immature granulocytes ,absolute 0.01 x10'3 /uL 0.00-0 .05 Not Available [facility] (Lab) [address] [place], [address], 04/04/2024 12:26:29 04/04/20 24 04/04/2024 CBC/C OMPLE TE BLD COUNT W/DIF F nucleated red blood cells 0.0 % -0 Not Available [facility] (Lab) [address] [place], [address], 04/04/2024 12:26:29 04/04/20 24 04/04/2024 CBC/C OMPLE TE BLD COUNT W/DIF F NRBC# 0.00 x10'3 /uL Not Available [facility] (Lab) [address] [place], [address], 04/04/2024 12:26:29 04/06/20 24 04/06/2024 CT, abdom en + pelvi s, w/o contr ast No observ ation record ed. [address], [place], [address], 04/06/2024 13:35:42 Result Notes None recorded. Problems Name Problem SNOMED Code Status Onset Date Resolution Date Notes Provider Name and Address Organization Details Recorded Time Irritable bowel syndrome 83821529 Active Not Available [facility] 3 01:05:32 Disorder of shoulder 255571250 Completed Not Available [facility] 3 01:05:32 Benign essential hypertens ion 7661600 Completed Not Available [facility] 3 01:05:32 Acquired trigger finger 3425558 Active [facility] 3 01:05:33 Localized , primary osteoarth ritis of the hand 379044423 Active [facility] 3 01:05:33 Gastroeso phageal reflux disease 512791827 Active Not Available [facility] 3 01:05:33 Osteoarth ritis of knee 709699027 Active [facility] Available [facility] 3 01:05:33 Disorder of prostheti c joint 589755838 Active Not Available [facility] 3 01:05:33 Pure hyperchol [place] 174699809 Active Not Available [facility] 3 01:05:33 Depressiv e disorder 06730498 Active Not Available [facility] 3 01:05:34 Lesion of ulnar nerve 833869618 Active Not Available [facility] 3 01:05:34 Osteoarth ritis 679966115 Completed Not Available [facility] 3 01:05:34 Adhesive capsuliti s of shoulder 506319680 Active Not Available [facility] 3 01:05:34 Arthropat hy of joint of hand 922700570 Active Not Available [facility] 3 01:05:34 Arthropat hy of knee joint 348662385 Active Not Available [facility] 3 01:05:34 Female stress incontine nce 57286352 Active Not Available [facility] 3 01:05:35 Sleep apnea 60179909 Active Not Available [facility] 3 01:05:35 Pain in limb 87260325 Completed Not Available [facility] 3 01:05:35 Chronic obstructi ve pulmonary disease 77493657 Active 2016 Not Available [facility] 3 01:05:33 Trigger thumb of right hand 32367926091 9105 Active 2019 Not Available [facility] 3 01:05:33 Trigger finger of right hand 09089391548 350692 Active 2019 Not Available [facility] 3 01:05:33 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 41759589 Active 2019 Not Available [facility] 3 01:05:34 Overactiv e urinary bladder 007175259 Active 2020 Not Available [facility] 3 01:05:35 Kidney stone 00857109 Active 2020 Not Available [facility] 3 01:05:36 Essential hypertens ion 70301065 Active 2020 Not Available [facility] 3 01:05:35 Vitamin D deficienc y 22849752 Active 2021 Nelson Dempsey MD [address], [place], [address] , [employer] 5 12:12:47 Hyperglyc emia 67885791 Active 2021 Not Available [facility] 3 01:05:35 Acute sinusitis 17895620 Active 2022 Nelson Dempsey MD [address], [place], [address] , [employer] 3 12:54:10 Obese class I 00002450170 4107 Active 2023 Nelson Dempsey MD [address], [place], [address] , [employer] 4 11:21:28 Problem Notes None recorded. Procedures Surgical History Date Name Laterality Status Provider Name and Address Organization Details Recorded Time 4 Medicare Wellness CPT Code, subsequent completed Monserrat Baldwin RN [facility] [employer] 10/08/2024 12:28:31 3 Medicare Wellness CPT Code, subsequent completed Monserrat Baldwin RN [facility] [employer] 09/26/2023 12:09:01 Imaging Results None recorded. Procedure Notes None recorded. Medical Equipment None Reported. Allergies Allergen ID Allergen Name Allergen Category Reaction Reaction Severity Criticality Documentation Date Start Date Code Code System Note Provider Name and Address Organization Details Recorded Time 2207 Vioxx medicatio n Not available Not available Not available 12/22/2022 52459 9 RxNorm palpi tatio ns swell ing Not Available [facility] includes [facility] 3 01:24:44 2209 Product containin g penicilli n (product) medicatio n hives Not available Not available 12/22/2022 93766 8001 SNOMED Not Available [facility] includes the [facility] 3 01:24:44 2210 lisinopri l medicatio n cough Not available Not available 12/22/2022 61416 RxNorm Not Available Count includes the [facility] 3 01:24:44 2211 Augmentin medicatio n rash Not available Not available 12/22/2022 22677 2 RxNorm Not Available [facility] includes the [facility] 3 01:24:44 Medications Name Sig Start Date Stop Date Status Note LastModified by Organization Details LastModified Time amoxicillin 500 mg capsule TAKE 1 CAPSULE BY MOUTH THREE TIMES DAILY FOR 10 DAYS 12/23 completed Not Available Not Available Not Available furosemide 40 mg tablet TAKE 1 TABLET BY MOUTH EVERY DAY 09/26 completed Not Available Not Available Not Available atorvastati n 40 mg tablet TAKE 1 TABLET BY MOUTH DAILY 06/23 completed Not Available Not Available Not Available prednisone 10 mg tablet 04/29 completed Not Available Not Available Not Available Protonix 40 mg tablet,terrie yed release Take 1 tablet every day by oral route. 2014 active Not Available Not Available Not Avai lable Klor-Con 20 mEq tablet,exte nded release Take 1 tablet every day by oral route. 10/28 completed Not Available Not Available Not Available clindamycin HCl 300 mg capsule TK 1 C PO TID FOR 5 DAYS 02/11 completed Not Available Not Available Not Available oxybutynin chloride ER 10 mg tablet,exte nded release 24 hr TK 1 T PO QD 04/29 completed Not Available Not Available Not Available Cartia XT 300 mg capsule,ext ended release Take 1 capsule every day by oral route. 12/19 completed Not Available Not Available Not Available ibuprofen 800 mg tablet TAKE 1 TABLET BY MOUTH TWICE DAILY WITH FOOD NEEDED FOR JOINT PAIN active Not Available Not Available No t Available benzonatate 200 mg capsule Take 1 capsule 3 times a day by oral route. 04/02 completed Not Available Not Available Not Available Ativan 1 mg tablet Take 1 tablet 3 times a day by oral route. 12/07 completed Not Available Not Available Not Available Lipitor 80 mg tablet Take 1 tablet every day by oral route. 2013 active Not Available Not Available Not Avai lable Niaspan 500 mg tablet,exte nded release Take 1 tablet every day by oral route at bedtime. 2013 active Not Available Not Available Not Avai lable Zithromax Z-He 250 mg tablet TAKE 2 TABLETS (500 MG) BY ORAL ROUTE ONCE DAILY FOR 1 DAY THEN 1 TABLET (250 MG) BY ORAL ROUTE ONCE DAILY FOR 4 DAYS 04/02 completed Not Available Not Available Not Available clindamycin HCl 150 mg capsule Take 1 capsule every 6 hours by oral route. active Not Available Not Available No t Available cyanocobala min (vit B-12) 1,000 mcg tablet Take 1 tablet every day by oral route. active Not Available Not Available No t Available promethazin e 6.25 mg-codeine 10 mg/5 mL syrup Take 5 ML EVERY 6 HOURS by oral route PRN for cough active Not Available Not Available No t Available Nexium 40 mg capsule,del ayed release Take 1 capsule every day by oral route. 04/03 completed Not Available Not Available Not Available diltiazem CD 360 mg capsule,ext ended release 24 hr TAKE 1 CAPSULE BY MOUTH EVERY DAY active Not Available Not Available No t Available hydroxyzine HCl 50 mg tablet Take 1 tablet 3 times a day by oral route. 2013 active Not Available Not Available Not Avai lable ciprofloxac in 500 mg tablet TAKE 1 TABLET BY MOUTH TWICE DAILY 10/28 completed Not Available Not Available Not Available sulfamethox azole 800 mg-trimetho prim 160 mg tablet TAKE 1 TABLET BY MOUTH TWICE DAILY 10/28 completed Not Available Not Available Not Available aspirin 81 mg tablet,terrie yed release Take 1 tablet every day by oral route. 2021 active Not Available Not Available Not Avai lable tramadol 50 mg tablet TAKE 1 TABLET BY MOUTH EVERY 6 HOURS NEEDED 10/28 completed Not Available Not Available Not Available spironolact one 25 mg tablet TAKE 1 TABLET BY MOUTH EVERY DAY 09/27 completed Not Available Not Available Not Available amoxicillin 500 mg tablet 1 tab po 3 x a day 11/10 completed Not Available Not Available Not Available prednisone 10 mg tablets in a dose pack Take 1 tab by mouth, 3 times a day for 3 daysTake 1 tab by mouth 2 times a day for 2 daysTake 1 tab by mouth once a day for 1 day 05/12 completed Not Available Not Available Not Available risperidone 2 mg tablet Take 1 tablet every day by oral route at bedtime. active Not Available Not Available No t Available losartan 100 mg-hydrochl orothiazide 25 mg tablet TAKE 1 TABLET BY MOUTH EVERY DAY 09/26 completed Not Available Not Available Not Available alprazolam 0.5 mg tablet Take 1 tablet 3 times a day by oral route. 12/07 completed Not Available Not Available Not Available potassium chloride ER 20 mEq tablet,exte nded release(par t/cryst) Take 1 tablet every day by oral route. active Not Available Not Available No t Available Kenalog 10 mg/mL suspension for injection In office injection administe red by the provider 03/29 completed [facility]: 0003- 0494- 20 Not Available Not Available Not Available hydrocodone 7.5 mg-acetamin ophen 325 mg tablet active Not Available Not Available No t Available metoprolol tartrate 50 mg tablet half tablet twice a day active Not Available Not Available No t Available fluoxetine 10 mg capsule active Not Available Not Available Not Available hydroxyzine HCl 25 mg tablet Take 1 tablet 4 times a day by oral route. active Not Available Not Available No t Available Cartia XT 240 mg capsule,ext ended release Take 1 capsule every day by oral route. 08/10 completed Not Available Not Available Not Available Levaquin 500 mg tablet Take 1 tablet every 24 hours by oral route. 12/07 completed Not Available Not Available Not Available alprazolam 2 mg tablet active Not Available Not Available Not Available levofloxaci n 750 mg tablet TAKE 1 TABLET BY MOUTH DAILY FOR 2 DAYS 02/11 completed Not Available Not Available Not Available albuterol sulfate HFA 90 mcg/actuati on aerosol inhaler INHALE 2 PUFFS BY MOUTH FOUR TIMES DAILY NEEDED active Not Available Not Available No t Available losartan 50 mg-hydrochl orothiazide 12.5 mg tablet TAKE 1 TABLET BY MOUTH EVERY DAY 03/29 completed Not Available Not Available Not Available losartan 100 mg tablet TAKE 1 TABLET BY MOUTH DAILY active Not Available Not Available No t Available Xanax 1 mg tablet Take 1 tablet 3 times a day by oral route. 2013 active Not Available Not Available Not Avai lable hydroxyzine pamoate 25 mg capsule active Not Available Not Available N ot Available enoxaparin 30 mg/0.3 mL subcutaneou s syringe active Not Available Not Available No t Available rosuvastati n 40 mg tablet TAKE 1 TABLET BY MOUTH EVERY DAY active Not Available Not Available No t Available potassium chloride ER 10 mEq tablet,exte nded release(par t/cryst) active Not Available Not Available Not Available Multivitami n 50 Plus tablet Take 1 tablet every day by oral route. 09/27 completed Not Available Not Available Not Available Lasix 10/28 completed Not Available Not Available Not Available Aspir-81 09/27 completed Not Available Not Available Not Available Centrum Silver daily 12/19 completed Not Available Not Available Not Available Combivent 2 puffs four times a day 2012 active Not Available Not Available Not Avai lable lidocaine (PF) 10 mg/mL (1 %) injection solution In office injection administe red by the provider 03/29 completed [facility]: 0409- 4276- 17 Not Available Not Available Not Available Combivent Respimat 20 mcg-100 mcg/actuati on solution for inhalation Inhale 1 puff 4 times a day by inhalatio n route. 2013 active Not Available Not Available Not Avai lable Fluvirin 45 mcg (15 mcg x 3)/0.5 mL intramuscul ar suspension active Not Available Not Available N ot Available Vitals Date Recorded Body height Body mass index (BMI) Body weight Heart rate Body temperature Oxygen saturation Oxygen saturation in Arterial blood by Pulse oximetry Systolic And Diastolic Provider Name and Address Organization Details Last Updated DateTime 3 160.02 cm 37 kg/m2 79920.8 1 g 83 /min 97 [degF] 97 % 97 % 144/82 mm[Hg] [place]ole [place] [facility] [employer] 3 11:22:48 Date Recorded Body height Body mass index (BMI) Body weight Heart rate Body temperature Oxygen saturation Oxygen saturation in Arterial blood by Pulse oximetry Systolic And Diastolic Provider Name and Address Organization Details Last Updated DateTime 4 160.02 cm 33.8 kg/m2 88083.1 4 g 77 /min 97.7 [degF] 97 % 97 % 120/80 mm[Hg] SAMMY Cook [facility] 4 11:12:17 Date Recorded Body height Body mass index (BMI) Body weight Heart rate Body temperature Oxygen saturation Oxygen saturation in Arterial blood by Pulse oximetry Systolic And Diastolic Provider Name and Address Organization Details Last Updated DateTime 5 160.02 cm 34.7 kg/m2 02732.1 g 85 /min 97 [degF] 97 % 97 % 118/64 mm[Hg] [facility] [employer] [facility] 5 12:03:25 Date Recorded Body height Body mass index (BMI) Body weight Heart rate Body temperature Oxygen saturation Oxygen saturation in Arterial blood by Pulse oximetry Systolic And Diastolic Provider Name and Address Organization Details Last Updated DateTime 3 160.02 cm 35.4 kg/m2 07268.4 7 g 89 /min 97 [degF] 96 % 96 % 138/74 mm[Hg] [facility] [employer] [facility] 3 11:59:58 Date Recorded Pain severity - 0-10 verbal numeric rating [Score] - Reported Provider Name and Address Organization Details Last Updated DateTime 09/26/2023 3 Monserrat Baldwin RN [facility] [employer] [facility] 09/26/2023 12:09:13 Date Recorded Body height Body weight Heart rate Body temperature Oxygen saturation Oxygen saturation in Arterial blood by Pulse oximetry Systolic And Diastolic Provider Name and Address Organization Details Last Updated DateTime 4 160.02 cm 64449.1 4 g 82 /min 97 [degF] 97 % 97 % 120/80 mm[Hg] SAMMY Cook [facility] 4 12:22:17 Social History Question Answer Notes LastModified by Organizat ion Details LastModified Time Tobacco Smoking Status Never Smoker Not Available [facility] 12/22/2022 00:48:37 Do You Have An Advance Directive? Yes [id number] Information not available 12/22/2022 Are You Blind Or Do You Have Difficulty Seeing? No MIGRATION.[id number] Information not available 12/22/2022 In The 14 Days Before Symptom Onset, Have You Had Close Contact With A Laboratory-confirm ed COVID-19 While That Case Was Ill? No MIGRATION.[id number] Information not available 12/22/2022 In The 14 Days Before Symptom Onset, Have You Had Close Contact With A Person Who Is Under Investigation For COVID-19 While That Person Was Ill? No MIGRATION.[id number] 0523 Information not available 12/22/2022 Are You Deaf Or Do You Have Serious Difficulty Hearing? No MIGRATION.[id number] Information not available 12/22/2022 What Type Of Diet Are You Following? REGULAR MIGRATION.[id number] 8705 Information not available 12/22/2022 Have There Been Any Changes To Your Family Or Social Situation? No [email or web address] Information no t available 10/08/2024 What Is The Fluoride Status Of Your Home? Unknown MIGRATION.[id number] Information not available 12/22/2022 Are There Any Guns Present In Your Home? No MIGRATION.518624 3019 Information not available 12/22/2022 Do You Use Insect Repellent Routinely? No MIGRATION.[id number] 1985 Information not available 12/22/2022 Where Do You Live? Apartment MIGRATION .[id number] Information not available 12/22/2022 Are You Able To Care For Yourself? Yes [email or web address] Information n ot available 09/26/2023 Are You Blind Or Do Yo Have Difficulty Seeing? No [email or web address] Information n ot available 09/26/2023 Are You Deaf Or Do You Have Serious Difficulty Hearing? No Information not available 09/26/2023 Live Alone Of With Others? Alone [email or web address] Information not available 09/26/2023 What Was The Date Of Your Most Recent Tobacco Screening? 10/08/2024 [email or web address] Information not available 10/08/2024 Do You Have Any Pets? No MIGRATION.[id number] 1700 Information not available 12/22/2022 Do You Use Your Seat Belt Or Car Seat Routinely? Yes MIGRATION.710354 7146 Information not available 12/22/2022 Do You Have Smoke And Carbon Monoxide Detectors In Your Home? Yes MIGRATION.547422 5555 Information not available 12/22/2022 Are You Passively Exposed To Smoke? No MIGRATION.674490 5934 Information not available 12/22/2022 Are There Any Smokers In Your House? No [email or web address] Information not available 09/26/2023 How Much Tobacco Do You Smoke? No MIGRATION.643631 6388 Information not available 12/22/2022 Do You Use Sunscreen Routinely? No MIGRATION.473584 6667 Information not available 12/22/2022 Have You Recently Traveled Abroad? No MIGRATION.792122 6527 Information not available 12/22/2022 Do You Have Difficulty Walking Or Climbing Stairs? No MIGRATION.583474 4029 Information not available 12/22/2022 Do You Have Any Dietary Restrictions? No MIGRATION.403694 4222 Information not available 12/22/2022 Sex: Female Functional Status Question Answer Note LastModified by Organizat ion Details LastModified Time What is your level of alcohol consumption? None Information not available 10/08/2024 Do you have transportation difficulties? No MIGRATION.9595942 026 Information not available 12/22/2022 Are you able to walk? YESWOREST MIGRATION.5230761 026 Information not available 12/22/2022 Do you have difficulty doing errands alone? No MIGRATION.9605037 026 Information not available 12/22/2022 Are you able to care for yourself? Yes MIGRATION.3650690 026 Information not available 12/22/2022 Do you have difficulty dressing or bathing? No MIGRATION.7231503 026 Information not available 12/22/2022 What is your exercise level? Occasional MIGRATION.0105894 026 Information not available 12/22/2022 Mental Status Question Answer Note LastModified by Organizat ion Details LastModified Time Do you have difficulty concentrating, remembering or making decisions? No MIGRATION.[id number] Information not available 12/22/2022 Family History Relationship Description Onset Age of this Age Resolved Age Notes LastModified by Organization Details LastModified Time Unspecified Relation Heart disease [id number] Not available 12/22/2022 00:53:25 Unspecified Relation Hypertensive disorder MIGRATION.[id number] Not available 12/22/2022 00:53:25 Notes:Mother 85 yea rs old HTN, CAD, Type II DM Father 60's years old HTN, CVA Dementia 5 Brothers 2 Living HTN(2) AIDS(1) one Murder, [place] Pancreas 2 Sisters 2 Living HTN(2) CAD(1) Medical History Condition Response BLINDNESS N NERVE DISEASE N RHEUMATIC FEVER N BLADDER PROBLEMS N KIDNEY STONES N MRSA N OTHER # 1 N POLIO N LUNG DISEASE/DISORDER N HISTORY OF DRUG ABUSE N RADIATION / CHEMOTHERAPY N COPD N Other # 2 N BLOOD DISEASES N EAR OR HEARING PROBLEMS N MUMPS N SHINGLES N DEPRESSION (INCLUDING POST ) N BOWEL PROBLEMS N STROKE/TIA N ULCERS N BENIGN PROSTATIC HYPERPLASIA N MEASLES N HYPOTENSION N MYOCARDIAL INFARCTION N OBESITY N GERD/NAUSEA N ANEURYSM N URINARY/BLADDER/KIDNEY PROBLEMS N CORONARY ARTERY DISEASE (CAD) N ADDICTION CONCERNS N Impotence N ENDOMETRIOSIS N USE OF BLOOD THINNERS N SKIN PROBLEMS N GASTROINTESTINAL DISORDER N PERIPHERAL VASCULAR DISEASE N MUSCLE,JOINT OR BONE PROBLEMS N GASTROINTESTINAL BLEEDING N BLOOD CLOTS N ASTHMA N CATARACTS N ERECTILE DYSFUNCTION N VARICOSITIES N GI PROBLEMS N Low Testosterone N INFERTILITY N AIDS/HIV N CHEMOTHERAPY / RADIATION N LIVER DISEASE N MALE HYPOGONADISM N HYPERTENSION Y Deficiency N TOURETTE'S N ANXIETY DISORDER N BLOOD TRANSFUSION N ANEMIA/BLOOD DISORDER N CHRONIC EAR INFECTIONS N BRONCHITIS N TUBERCULOSIS N GLAUCOMA N FOOT PROBLEM N DIVERTICULITIS N SLEEP APNEA Y CHICKENPOX N INFECTIOUS DISEASE N PROSTATE N HEART ARRHYTHMIA N INSOMNIA N HIGH CHOLESTEROL / HYPERLIPIDEMIA Y EYE PROBLEMS N HYPERTHYROIDISM N EDEMA N CHRONIC PAIN SYNDROME N HYPOTHYROIDISM N CAROTID BLOCKAGE N CONSTIPATION N BACK / NECK PROBLEMS N HAVE YOU BEEN HOSPITALIZED OR SEEN IN [facility] IN THE PAST YEAR ? N ATHEROSCLEROSIS N BREAST PROBLEMS N DIALYSIS N ECZEMA N OSTEOPOROSIS N ARTHRITIS Y NO SIGNIFICANT PAST MEDICAL HISTORY N APPENDICITIS N DIABETES, TYPE N BAD TEETH N ENT N HEARTBURN / REFLUX Y AUTISM SPECTRUM DISORDER (ASD) N HEPATITIS / LIVER DISEASE N GOUT N SLEEP DISORDER N ALZHEIMER'S DISEASE N Brain Problems N DEMENTIA N HERPES N SEIZURES/EPILEPSY N HEADACHES/MIGRAINES N VASCULAR DISEASE N PACEMAKER N Blood Disorder N DIZZINESS N HEART DISEASE/HEART PROBLEMS N KIDNEY DISEASE N MULTIPLE SCLEROSIS N CANCER: SPECIFY N CARDIAC ARRHYTHMIA N ATRIAL FIBRILLATION N Gall Stones N PULMONARY EMBOLISM N AUTOIMMUNE DISEASE N Gynecological HistoryNo gynecological history recorded. Obstetrics History GPAL:G 0 P 0 0 0 0 Immunizations Vaccine Type Date Status Note Provider Nam e and Address Organization Details Recorded Time Influenza, split virus, trivalent, preservative 4 completed Not Available [facility] 12/22/2022 01:24:10 influenza, unspecified formulation 2 completed Not Available [facility] includes the [facility] 12/22/2022 01:24:11 Influenza, split virus, trivalent, preservative 8 completed Not Available Count includes the [facility] 12/22/2022 01:24:11 Influenza, split virus, quadrivalent, preservative 1 completed Not Available Count includes the [facility] 12/22/2022 01:24:11 COVID-19, mRNA, LNP-S, PF, 100 mcg/0.5mL dose or 50 mcg/0.25mL dose 1 completed Not Available [facility] includes the [facility] 12/22/2022 01:24:11 COVID-19, mRNA, LNP-S, PF, 100 mcg/0.5mL dose or 50 mcg/0.25mL dose 1 completed Not Available [facility] includes the [facility] 12/22/2022 01:24:11 Pneumococcal conjugate PCV 13 5 completed Not Available [facility] includes the [facility] 12/22/2022 01:24:11 pneumococcal polysaccharide PPV23 0 completed Not Available [facility] includes the [facility] 12/22/2022 01:24:12 Past Encounters Encounter ID Performer Location Encounter Start Date Encounter Closed Date Diagnosis/Indication Diagnosis SNOMED-CT Code Diagnosis ICD10 Code Diagnosis Note [id number] RACHAEL Ga S[facility] [address] [place] [address] 12/23/2020 00:00:00 12/23/2020 09:23:10 [id number] MD CHRIS Paz_[facility] Internal [facility] [address] [address] 02/11/2021 00:00:00 02/11/2021 16:36:24 [id number] Nelson Dempsey MD Symone[facility] [address] [address] 04/29/2021 00:00:00 04/29/2021 10:22:08 [id number] RACHAEL Ga AHS[facility] [address] [place] [address] 06/16/2021 00:00:00 06/16/2021 09:25:01 [id number] Nelson Dempsey MD [facility] [address] [address] 10/28/2021 00:00:00 10/28/2021 11:35:51 [id number] Nelson Dempsey MD [facility] [address] [address] 03/29/2022 00:00:00 03/29/2022 16:06:47 [id number] Nelson Dempsey MD [facility] [address] [address] 09/27/2022 00:00:00 09/27/2022 11:15:06 [id number] Nelson Dempsey MD [facility] [address] [address] 03/28/2023 10:43:11 03/28/2023 11:39:05 Essential hypertension 10673012 I10 Pure hypercholesterolemia 687517640 E78.00 Osteoarthr itis of knee 767756432 M17.9 Chronic ob structive pulmonary disease 56787913 J44.9 Obese class II 390979673 1 70361 E66.9 [id number] Nelson Dempsey MD [facility] [address] [address] 09/26/2023 11:02:39 09/26/2023 12:27:16 Adult health examination 162595974 Z00.00 Screening for disorder 140096741 Z13.9 Essential hypertension 06235312 I10 Gastroesop hageal reflux disease 049246845 K21.9 Pure hypercholesterolemia 376005451 E78.00 Obese class II 160050601 1 63471 E66.9 Vitamin D deficiency 347 58202 E55.9 [id number] Nelson Dempsey MD [facility] [address] [address] 04/02/2024 11:01:30 04/02/2024 11:38:51 Essential hypertension 19593511 I10 Gastroesop hageal reflux disease 936182946 K21.9 Pure hypercholesterolemia 258599608 E78.00 Kidney stone 73262862 N2 0.0 Obese class I 3548017508 77516 E66.9 [id number] Nelson Dempsey MD [facility] Internal Med [facility] [address] [address] 10/08/2024 12:02:16 10/08/2024 12:57:09 Adult health examination 870001244 Z00.00 Screening for disorder 611550530 Z13.9 Essential hypertension 90343302 I10 Pure hypercholesterolemia [id number] E78.00 Chronic ob structive pulmonary disease 67620513 J44.9 Hyperglycemia 72438510 R 73.9 Obese class I [id number] 22983 E66.9 Vitamin D deficiency 347 77124 E55.9 [id number] Nelson Dempsey MD [facility] Internal Med [facility] [address] [address] 04/08/2025 11:31:04 04/08/2025 12:17:03 Chronic obstructive pulmonary disease [id number] J44.9 Essential hypertension 36241180 I10 Pure hypercholesterolemia 962940997 E78.00 Obese class I [id number] 88533 E66.9 Vitamin D deficiency 347 54584 E55.9 Health Concerns Section Related Observation LastModified by Organization Detai ls LastModified Time None Recorded Concern Status LastModified by Organization Details LastModified Time None Recorded Advance Directives Directive Y: Payers Insurance Date Sequence Insurance Name Policy Number Policy Kuo Covered Member ID Kuo Member ID Guarantor Name 04/08/[address] [facility] (MEDICARE REPLACEMENT/A DVANTAGE - PPO) [id number] America Russo [id number] America Russo 04/08/2025 2 [place] WHEN MEDICARE OR MEDICARE REPLACEMENT PRIMARY) America Russo [id number] America Russo Notes Date Note Type Note Provider Name and Address Organization Details Recorded Time 3 text/html Patient Name: America RussoDate Of Service: Tuesday ( 03.28.2023 ): 1955 Age: 67 There has been approximately a 3 lb weight gain since 09/27/2022. This represents approximately a 1.5% change in weight. Weight change attributable to lifestyle changes. Vital Signs:Blood Pressure: Sitting Rt. Arm 144/82Pulse: Sitting 83 /min and RegularRespirations: 12Height 63 in or 1.6 mWeight 209 lb or 94.8 kgBMI 37.0Temperature: 97 F or 36.1 CPulse Oximetry: 97 % at rest on no oxygen Chief Complaint: Addressed in HPI Problems or conditions discussed in the HPI were the only ones reviewed during the encounter.Only social and family history addressed in the HPI were reviewed during this encounter. Attendant(s): None Constitutional and Systemic Symptoms: none Medication Reconciliation: from medication list. History of Present Illness #1. Essential Hypertension: Stage: Stage I Interval Neurological Complaints no headaches, dizziness, weakness, visual changes, ataxia, aphasia and apraxia. No shortness of breath, orthopnea or cardiovascular symptoms. No other symptoms related to end organ damage. Pressure has been under excellent control. Currently normal. No other end organ symptoms or findings. Therapy reviewed regarding management of hypertension and includes salt restriction and Diltiazem and Hyzaar. #2. History of hypertriglyceridemia: History of the high cholesterol. Not taking any medications and being controlled by diet. No interval complaints of any chest pain, shortness of breath, orthopnea or other cardiovascular complaints. Last lipid panel: fair control #3. Hx of DJD stable. No interval complaints of any additional joint pain, swelling or redness. Joints most involved include hands, wrists and knees. Medications: NSAIDS The DJD does interfere with ADL and ambulation. #4. COPD: Hx of Asthma currently stable. There has been no interval change in exercise tolerance an shortness of breath. No change in sputum production, color or consistency. No fever, chills, weight loss or other constitutional symptoms. Gold Scale: Mild. MRC Scale: vigorous walking. Smoking: not currently smoking Current medications: Proair Hfa Using nebulizer Treatments: No. Uses does not use supplemental oxygen #5. Hx of obesity. Currently Class 2 Obesity BMI 35-39.99. Has tried numerous dietary support and supplements with no benefit. Instructed on the health consequences of the obese status particularly cancer - diabetes and heart disease. Discussed new modalities of weight loss including GLP-1 medications that are used to treat diabetes. Potential candidate for bariatric surgery: No. Wishes to be evaluated by Dietary: No and was offered to be evaluated and instructed by forest ranger on weight loss diet.Medication List Reviewed and Reconciled 03/28/2023iltiazem 360 MG (CAPSULE, EXTENDED RELEASE - ORAL) One DailyAspirin 81 MG One DailyHyzaar 25 MG-100 MG (TABLET - ORAL) Take One Tablet DailyLasix 40 MG TABLET Once DailyIbuprofen 800 MG TABLET One Bid As Needed For Joint PainProair Hfa 2 Puffs Four Times A DayCrestor 40 MG TABLET, FILM COATED QdADRs List Reviewed 03/28/2023Vioxx Palpitations, SwellingLisinopril CoughAugmentin RashZithromax RashVaccination and Uqoxyjvxiyqb0329-87 Nyidcgdec5460-56 Covid Byjphnm4580-59 Prevnar [id number] Roqw4498-22 Pneumovax (high RiskSurgical HistoryLeft TKA, Cystoscopy, Left Knee Replacement, NATALIO BSO, Ventral Hernia, HemmorhoidsPreventative Testing Confirmed by Our Xqnnpsm5110/11/2022 ALBUMIN 4.0 G/DL06/17/2022 HAIC 6.4 % H012/11/2009 UPPER WEPQOCAWU77/28/2004 COLONOSCOPY MAMMOGRAM 08/08/2004Social HistoryDoes not smoke cigarettes. 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 This represents approximately a 4.3% change in weight. Weight change attributable to lifestyle changes. Vital Signs:Blood Pressure: Sitting Rt. Arm 138/74Pulse: Sitting 89 /min and RegularRespiratory Rate: 12Height 63 in or 1.6 mWeight 200 lb or 90.7 kgBMI 35.4Temperature: 97 F or 36.1 CPulse Oximetry: 96 % at rest on no oxygen Chief Complaint: Addressed in HPI Problems or conditions discussed in the HPI were the only ones reviewed during the encounter.Only social and family history addressed in the HPI were reviewed during this encounter. A significant, separate E/M service was performed to evaluate the current and new problems. Attendant(s): NoneConstitutional and Systemic Symptoms:none Medication Reconciliation: from medication list. History of Present Illness Reviewed the findings of the preventative health visit. Addressed all areas with the patient, patient's family or caregivers. Preventative examinations and testing immunizations - vaccinations, colonic neoplasm screening, mammograms, LDCT thorax and Refusing all screening studies all reviewed and ordered where patient was amenable to the recommendations. Cognitive function was normal. Depression addressed and where necessary medications were adjusted or instituted. End of life and living will briefly discussed with patient and where these can be filled out and legally executed. Other blood and imaging studies were ordered if considered necessary. Other recommendations may be found in the encounter note. #1. Essential Hypertension: Stage: Stage I Interval Neurological Complaints no headaches, dizziness, weakness, visual changes, ataxia, aphasia and apraxia. No shortness of breath, orthopnea or cardiovascular symptoms. No other symptoms related to end organ damage. Pressure has been under excellent control. Currently normal. No other end organ symptoms or findings. Therapy reviewed regarding management of hypertension and includes salt restriction and Diltiazem and Losartan Potassium. #2. Type II Hypercholesterolaemia: Currently taking medication and tolerating well. No interval complaints of any muscle pain or arthralgia. No significant liver changes with medications. Last lipid panel: fair control. Therapy reviewed regarding treatment of cholesterol management and include diet and Crestor. #3. Hx of esophageal reflux currently stable. Hx of Complications: none The severity, duration and intensity of symptoms have improved. Frequency: infrequent Treatment consists medications taken on intermittent basis. Current therapy includes no medication. There has been no nausea, eructation, vomiting, hematemesis, dysphagia, velopharyngeal insufficiency and odynophagia. No change in he frequency or intensity of symptoms. Has had no melena. Has had no hematemesis. Discuss the possibility of trying to reduce the frequency of the use of any PPI inhibitors or H2 antagonist to see if symptoms can be controlled with last intensive therapy #4. Hx of obesity. Currently Class 2 Obesity BMI 35-39.99. Has tried numerous dietary support and supplements with no benefit. Instructed on the health consequences of the obese status particularly cancer - diabetes and heart disease. Discussed new modalities of weight loss including GLP-1 medications that are used to treat diabetes. Potential candidate for bariatric surgery: No. Wishes to be evaluated by Dietary: No and was offered to be evaluated and instructed by forest ranger on weight loss diet.Medication List Reviewed and Reconciled 3Diltiazem 360 MG (CAPSULE, EXTENDED RELEASE - ORAL) One DailyAspirin 81 MG One DailyIbuprofen 800 MG TABLET One Bid As Needed For Joint PainLosartan Potassium 100 MG TABLET Once DailyVitamin B12 1000 MCG Once DailyProair Hfa 2 Puffs Four Times A DayCrestor 40 MG TABLET, FILM COATED QdADRs List Reviewed 09/26/2023Vioxx Palpitations, SwellingLisinopril CoughAugmentin RashZithromax RashVaccination and Sevgpnwpejae2784-00 Ltacwfith3950-35 Covid Bpnjnfb1170-87 Prevnar 13 Ya1422-49 PneumovaxSurgical HistoryLeft TKA, Cystoscopy, Left Knee Replacement, NATALIO BSO, Ventral Hernia, HemmorhoidsPreventative Testing Confirmed by Our Yrsuxrf2903/30/2023 ALBUMIN 3.5 G/DL N006/17/2022 HAIC 6.4 % H012/11/2009 UPPER KJEBAGLLD60/28/2004 COLONOSCOPY MAMMOGRAM 08/08/2004Social HistoryDoes not smoke cigarettes. 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 This represents approximately a 4.5% change in weight. Weight change attributable to lifestyle changes. Vital Signs:Blood Pressure: Sitting Rt. Arm 120/80Pulse: Sitting 77 /min and RegularRespiratory Rate: 12Height 63 in or 1.6 mWeight 191 lb or 86.6 kgBMI 33.8Temperature: 97.7 F or 36.5 CPulse Oximetry: 97 % at rest on no oxygen Chief Complaint: Addressed in HPI Problems or conditions discussed in the HPI were the only ones reviewed during the encounter.Only social and family history addressed in the HPI were reviewed during this encounter. Attendant(s): NoneConstitutional and Systemic Symptoms:none Medication Reconciliation: from medication list. History of Present Illness #1. Essential Hypertension: Stage: Stage I Interval Neurological Complaints no headaches, dizziness, weakness, visual changes, ataxia, aphasia and apraxia. No shortness of breath, orthopnea or cardiovascular symptoms. No other symptoms related to end organ damage. Pressure has been under excellent control. Currently normal. No other end organ symptoms or findings. Therapy reviewed regarding management of hypertension and includes salt restriction and Diltiazem and Losartan Potassium. #2. Type II Hypercholesterolaemia: Currently taking medication and tolerating well. No interval complaints of any muscle pain or arthralgia. No significant liver changes with medications. Last lipid panel: fair control. Therapy reviewed regarding treatment of cholesterol management and include diet and Crestor. #3. Hx of esophageal reflux currently stable. Hx of Complications: none The severity, duration and intensity of symptoms have improved. Frequency: most meals Treatment consists medications taken on intermittent basis. Current therapy includes no medication. There has been no nausea, eructation, vomiting, hematemesis, dysphagia, velopharyngeal insufficiency and odynophagia. No change in he frequency or intensity of symptoms. Has had no melena. Has had no . Discussed use of H2 antagonists NA. #4. Renal Calculi: History of bilateral renal calculi. No interval complaints of any flank pain, nausea, vomiting, or gross hematuria. No other urinary track symptoms or signs of urinary infection. #5. Hx of obesity. Currently Class 1 Obesity BMI 30-34.99. Has tried numerous dietary support and supplements with no benefit. Instructed on the health consequences of the obese status particularly cancer - diabetes and heart disease. Discussed other modalities of weight loss no. Potential candidate for bariatric surgery: No. Wishes to be evaluated by Dietary: No and was offered to be evaluated and instructed by forest ranger on weight loss diet. Active Medication ListDiltiazem 360 MG (CAPSULE, EXTENDED RELEASE - ORAL) One DailyAspirin 81 MG One DailyIbuprofen 800 MG TABLET One Bid As Needed For Joint PainLosartan Potassium 100 MG TABLET Once DailyVitamin B12 1000 MCG Once DailyProair Hfa 2 Puffs Four Times A DayCrestor 40 MG TABLET, FILM COATED Qd Adverse Drug Reactions ReviewedVioxx Palpitations, SwellingLisinopril CoughAugmentin RashZithromax Rash Vaccination and Ocrvrxfpnaxq7758-71 Zgrbobrop1525-99 Covid Lrwdroa9220-92 Prevnar 13 Xr9652-30 Pneumovax Surgical Dxkqphx5339-37 Left HAD3929-17 Fsusxuccxo4638-53 Left Knee Iieudojqfbt0060-[address] [facility] VJQ5883-83 Ventral Habcer5984-42 Hemmorhoids Preventative Pwxckrh0410/04/2023 ALBUMIN 4.3 G/DL06/17/2022 HAIC 6.4 % H012/11/2009 UPPER MNEZHGGNC21/28/2004 COLONOSCOPY MAMMOGRAM 08/08/2004 Social HistoryDoes not smoke cigarettes. 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 Arm 120/80Pulse: Sitting 82 /min and RegularRespiratory Rate: 16Height 63 in or 1.6 mWeight 191 lb or 86.6 kgBMI 33.8Temperature: 97 F or 36.1 CPulse Oximetry: 97 % at rest on no oxygen Chief Complaint: Addressed in HPI Problems or conditions discussed in the HPI were the only ones reviewed during the encounter.Only social and family history addressed in the HPI were reviewed during this encounter. A significant, separate E/M service was performed to evaluate the current and new problems. Attendant(s): NoneConstitutional and Systemic Symptoms:none Medication Reconciliation: from medication list. [id number]: CT scan of the abdomen negative for any masses or other signs of inflammation and/or possible neoplasms. No evidence of any ureteral calculi. If abdominal pain persists will need GI consultation. History of Present Illness Reviewed the findings of the preventative health visit. Addressed all areas with the patient, patient's family or caregivers. Preventative examinations and testing immunizations - vaccinations, colonic neoplasm screening, mammograms and DEXA Scan all reviewed and ordered where patient was amenable to the recommendations. Cognitive function was normal. Depression addressed and where necessary medications were adjusted or instituted. End of life and living will briefly discussed with patient and where these can be filled out and legally executed. Other blood and imaging studies were ordered if considered necessary. Other recommendations may be found in the encounter note. #1. Essential Hypertension: Stage: Stage I Interval Neurological Complaints no headaches, dizziness, weakness, visual changes, ataxia, aphasia and apraxia. No shortness of breath, orthopnea or cardiovascular symptoms. No other symptoms related to end organ damage. Pressure has been under excellent control. Currently normal. No other end organ symptoms or findings. Therapy reviewed regarding management of hypertension and includes salt restriction and Diltiazem and Losartan Potassium. #2. Type II Hypercholesterolaemia: Currently taking medication and tolerating well. No interval complaints of any muscle pain or arthralgia. No significant liver changes with medications. Last lipid panel: fair control. Therapy reviewed regarding treatment of cholesterol management and include diet and Crestor. #3. COPD: Hx of Emphysema currently stable. There has been no interval change in exercise tolerance an shortness of breath. No change in sputum production, color or consistency. No fever, chills, weight loss or other constitutional symptoms. Gold Scale: Mild. MRC Scale: only strenuous activity. Smoking: not currently smoking Current medications: none Using nebulizer Treatments: No. Uses does not use supplemental oxygen #4. Glucose Intolerance: Hx of glucose intolerance controlled with diet. No interval complaints of any polyuria, polyphagia or polydipsia. No nocturia. There has been no weight loss or other constitutional symptoms. Medications reviewed regarding diabetic management and include diet only. Last HAIC: DCCT HAIC: 6.4 Calculated MB mg% #5. Hx of obesity. Currently Class 1 Obesity BMI 30-34.99. Has tried numerous dietary support and supplements with no benefit. Instructed on the health consequences of the obese status particularly cancer - diabetes and heart disease. Discussed other modalities of weight loss no . Potential candidate for bariatric surgery: No. Wishes to be evaluated by Dietary: No and was offered to be evaluated and instructed by forest ranger on weight loss diet. Active Medication ListDiltiazem 360 MG (CAPSULE, EXTENDED RELEASE - ORAL) One DailyAspirin 81 MG One DailyIbuprofen 800 MG TABLET One Bid As Needed For Joint PainLosartan Potassium 100 MG TABLET Once DailyVitamin B12 1000 MCG Once DailyProair Hfa 2 Puffs Four Times A DayCrestor 40 MG TABLET, FILM COATED Qd Adverse Drug Reactions ReviewedVioxx Palpitations, SwellingLisinopril CoughAugmentin RashZithromax Rash Vaccination and Immunization( ) 2006-08 PNEUMOVAX( ) 2024-09 INFLUENZA( ) 2018-10 PREVNAR 13 GC( ) 2024-09 COVID BOOSTER MODERNA( ) 2024-09 PREVNAR 20( ) 2021-02 COVID MODERNA Surgical Kcvspon2516-30 Left RJJ0679-37 Somhaooffz3829-49 Left Knee Agrpqxkzmkk1825-[address] [facility] IUG9585-82 Ventral Xldauv9348-97 Hemmorhoids Preventative Testing( ) 04/04/2024 Albumin 3.7 G/DL( ) 06/17/2022 HAIC 6.4 % H( ) 12/11/2009 Upper Endoscopy(X) 05/20/2004 Colonoscopy 05/20/2014(X) 08/08/2003 Mammogram 08/08/2005 Social HistoryDoes not smoke cigarettes. 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 This represents approximately a 2.6% change in weight. Weight change attributable to lifestyle changes. Vital Signs:Blood Pressure: Sitting Rt. Arm 118/64Pulse: Sitting 85 /min and RegularRespiratory Rate: 16Height 63 in or 1.6 mWeight 196 lb or 88.9 kgBMI 34.7Temperature: 97 F or 36.1 CPulse Oximetry: 97 % at rest on no oxygen Chief Complaint: Addressed in HPI Problems or conditions discussed in the HPI were the only ones reviewed during the encounter.Only social and family history addressed in the HPI were reviewed during this encounter. Attendants(s) + NoneConstitutional and Systemic Symptoms:none Medication Reconciliation: from medication list. [id number]: CT scan of the abdomen negative for any masses or other signs of inflammation and/or possible neoplasms. No evidence of any ureteral calculi. If abdominal pain persists will need GI consultation. History of Present Illness #1. Essential Hypertension: Stage: Stage I Interval Neurological Complaints no headaches, dizziness, weakness, visual changes, ataxia, aphasia and apraxia. No shortness of breath, orthopnea or cardiovascular symptoms. No other symptoms related to end organ damage. Pressure has been under excellent control. Currently normal. No other end organ symptoms or findings. Therapy reviewed regarding management of hypertension and includes salt restriction and Diltiazem and Losartan Potassium. #2. Type II Hypercholesterolaemia: Currently taking medication and tolerating well. No interval complaints of any muscle pain or arthralgia. No significant liver changes with medications. Last lipid panel: fair control. Therapy reviewed regarding treatment of cholesterol management and include diet and Crestor. #3. COPD: Hx of Emphysema currently stable. There has been no interval change in exercise tolerance an shortness of breath. No change in sputum production, color or consistency. No fever, chills, weight loss or other constitutional symptoms. Gold Scale: Moderate. MRC Scale: only strenuous activity. Smoking: not currently smoking Current medications: Proair Hfa Using nebulizer Treatments: No. Uses does not use supplemental oxygen #4. Hx of obesity. Currently Class 1 Obesity BMI 30-34.99. Has tried numerous dietary support and supplements with no benefit. Instructed on the health consequences of the obese status particularly cancer - diabetes and heart disease. Discussed other modalities of weight loss no . Potential candidate for bariatric surgery: No. Wishes to be evaluated by Dietary: No and was offered to be evaluated and instructed by forest ranger on weight loss diet. Active Medication ListDiltiazem 360 MG (CAPSULE, EXTENDED RELEASE - ORAL) One DailyAspirin 81 MG One DailyIbuprofen 800 MG TABLET One Bid As Needed For Joint PainLosartan Potassium 100 MG TABLET Once DailyVitamin B12 1000 MCG Once DailyProair Hfa 2 Puffs Four Times A DayCrestor 40 MG TABLET, FILM COATED Qd Adverse Drug Reactions ReviewedVioxx Palpitations, SwellingLisinopril CoughAugmentin RashZithromax Rash Vaccination and Immunization ( ) 2006-08 PNEUMOVAX( ) 2024-09 INFLUENZA( ) 2018-07 PREVNAR 13 GC( ) 2024-09 COVID BOOSTER MODERNA( ) 2024-09 PREVNAR 20( ) 2021-02 COVID MODERNAImmunizations and Vaccinations Discussed and Implemented if feasible In the Office. Else referred to pharmacies. Surgical History 2013-04 Left LYM3033-20 Oipvzvkjbc2504-67 Left Knee Nbwyyhyqccc3687-[address] [facility] ECM4993-15 Ventral Nhexke9906-41 Hemmorhoids Preventative Testing ( ) 10/09/2024 HAIC6.3( ) 04/04/2024 Albumin 3.7 G/DL( ) 12/11/2009 Upper Endoscopy(X) 05/20/2004 Colonoscopy 05/20/2014(X) 08/08/2003 Mammogram 08/08/2005Preventative Testing Discussed and Scheduled if Acceptable to Patient Social HistoryDoes not smoke cigarettes. 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
[2025-05-16 12:31] LABS: Hematocrit 38.7 % (37.0-47.0); Hemoglobin 12.1 g/dL (12.0-15.0); Immature Granulocyte Percent A 0.4 % (0-0.5); Lymphocytes Absolute Auto 2.33 K/mm3 (0.9-3.2); Mean Corpuscular HGB Conc 31.3 g/dl (32-36); Mean Corpuscular Hemoglobin 30.6 pg (26-34); Mean Corpuscular Volume 97.7 fl (80-100); Nucleated Red Blood Cells Absolute Auto 0.000 K/mm3 (0.0-0.012); Nucleated Red Blood Cells Perc 0.0 % (0.0-0.2); Platelet Count Result 303 k/mm3 (150-375); Red Blood Count 3.96 M/mm3 (4.2-5.4); White Blood Count 7.7 K/mm3 (4.5-10.0)
[2025-05-16 12:55] LABS: Alanine Aminotransferase 15 U/L (6-35); Albumin Level 4.0 g/dL (3.5-5.1); Alkaline Phosphatase 113 U/L (38-126); Anion Gap 9 mmol/L (4-12); Aspartate Amino Transferase 27 U/L (14-36); Bilirubin,Total 0.3 mg/dL (0.2-1.3); Blood Urea Nitrogen 15 mg/dL (7-17); Calcium 9.9 mg/dL (8.4-10.2); Carbon Dioxide 26 mmol/L (22-30); Chloride 109 mmol/L (98-107); Cholesterol 167 mg/dL (0-200); Estimated Glomerular Filt Rate 40; Glucose 102 mg/dL (65-110); HDL Direct 34 mg/dL; Potassium 4.1 mmol/L (3.4-5.0); Sodium 144 mmol/L (137-145); Total Protein 8.2 g/dL (6.3-8.2); Triglycerides 155 mg/dL (<150)
[2025-05-16 13:03] LABS: NT Pro B Type Natriuretic Pept 201 pg/mL (19.9-100)
[2025-05-16 13:43] LABS: Hemoglobin A1C 6.3 % (<5.7)
== END 2025-05-16 10:56 | disposition home or self-care (01) ==
PROVIDERS: PCP Internal Medicine; Visit Provider Internal Medicine Cardiovascular Disease
DX: E78.5 Hyperlipidemia, unspecified (principal); I10 Essential (primary) hypertension; J44.9 Chronic obstructive pulmonary disease, unspecified; F41.9 Anxiety disorder, unspecified; R00.2 Palpitations; E66.9 Obesity, unspecified; R06.00 Dyspnea, unspecified; R07.9 Chest pain, unspecified; R60.0 Localized edema
CPT/HCPCS: 36415; 80053; 80061; 82306; 83036; 83880; 85025